=== PATIENT | male | born 1950 | race Caucasian/White ===

== ENCOUNTER → 2018-04-22 10:22 | Outpatient (CLI) | payer MEDICARE, OTHER, SELFPAY | PROVIDERS: PCP Family Medicine; Visit Provider Urology | DX: R97.20 Elevated prostate specific antigen [PSA] (principal) | CPT/HCPCS: 36415; 84153 ==

== ENCOUNTER 2018-05-22 14:28 | Emergency (ER) | payer MEDICARE, OTHER, SELFPAY ==
[2018-05-22 14:36] VITALS: BP 132/71; PULSE 84; RESP 16; TEMP 36.8; O2SAT 97; BMI 29.8
[2018-05-22 15:33] LABS: RBC Urine None Seen (0-5/HPF)
[2018-05-22 15:51] LABS: Bacteria Urine Few (2-10); Culture Indicated Urine Specimen Cultured; Squamous Epithelial Cell Urine None Seen; WBC Urine 10-30/HPF (0-5/HPF)
--- NOTE | 2018-05-22 18:23 | ED.MALEGU ---
HPI - Male Genitourinary <ALEXANDRA Tai - Last Filed: 05/22/18 22:17> General Chief complaint: Urogenital-Male Stated complaint: Prostate Issues, Fever Time Seen by Provider: 05/22/18 18:23 Source: patient Mode of arrival: ambulatory Limitations: no limitations History of Present Illness HPI Narrative: 68-year-old male history of BPH and is a nonsmoker.here for complaint of having symptoms of urinary tract infection. He states that he has had increased urinary frequency. He states that he has had difficulty in maintaining stream although he states he is able to empty his bladder. He states he has felt hot he has mild tenderness over the suprapubic area. He denies any rectal pain. No abdominal pain. Positive p.o. intake. No flank pain. No other concerns or complaints Related Data Home Medications Medication Instructions Recorded Confirmed flecainide 100 mg PO BID #0 10/16/17 05/22/18 hydrochlorothiazide 25 mg PO QDAY #0 10/16/17 05/22/18 lactase [Lactase Enzyme] 4,500 unit PO DAILY #0 10/16/17 05/22/18 losartan 50 mg PO DAILY #0 10/16/17 05/22/18 magnesium oxide 400 mg PO DAILY #0 10/16/17 05/22/18 Calcium 1 tab PO BID 05/22/18 05/22/18 Vitamin C 1 tab PO DAILY 05/22/18 05/22/18 Vitamin D3 1 cap PO DAILY 05/22/18 05/22/18 apixaban [Eliquis] 5 mg PO BID 05/22/18 05/22/18 diltiazem HCl [Cartia XT] 1 cap PO DAILY 05/22/18 05/22/18 Previous Rx's Medication Instructions Recorded cephalexin 500 mg PO QID #28 cap 05/22/18 Allergies Allergy/AdvReac Type Severity Reaction Status Date / Time caffeine [CAFFEINE] AdvReac Unknown HEADACHE, Verified 05/22/18 14:41 VOMITING glutamine [GLUTAMINE] AdvReac Unknown HEADACHE, Verified 05/22/18 14:41 VOMITING Nitrate Analogues AdvReac Unknown HEADACHE, Verified 05/22/18 14:41 [NITRATE ANALOGUES] VOMITING Sulfa (Sulfonamide AdvReac Unknown VOMITING, Verified 05/22/18 14:41 Antibiotics) RACING [SULFA (SULFONAMIDE HEART ANTIBIOTICS)] cheese AdvReac Headache Verified 05/22/18 14:42 monosodium glutamate AdvReac Vomiting Verified 05/22/18 14:42 Review of Systems <ALEXANDRA Tai - Last Filed: 05/22/18 22:17> Review of Systems All systems reviewed & are unremarkable except as noted in HPI and below Constitutional Denies chills, Denies fever(s), Denies lethargy and Denies weakness Eyes Denies change in vision, Denies eye discharge, Denies irritation and Denies loss of vision ENT Ears, Nose, Mouth, and Throat: Denies change in voice, Denies neck pain and Denies sore throat Cardiovascular Denies chest pain, Denies irregular heart rhythm, Denies lightheadedness, Denies palpitations, Denies dyspnea, Denies dyspnea on exertion and Denies orthopnea Respiratory Denies cough, Denies dyspnea, Denies dyspnea on exertion and Denies wheezing Gastrointestinal Gastrointestinal: Denies abdominal pain, Denies change in bowel habits, Denies diarrhea, Denies nausea and Denies vomiting Genitourinary Reports difficulty urinating and Reports urinary frequency Comments: suprapubic discomfort Musculoskeletal Denies neck pain Integumentary/Breasts Denies pruritus, Denies erythema, Denies rash and Denies wounds Neurologic Denies confusion, Denies loss of vision and Denies weakness Psychiatric Denies anxiety, Denies confusion, Denies depression, Denies homicidal ideation and Denies suicidal ideation Endocrine Denies palpitations Hematologic/Lymphatic Denies easy bruising Allergic/Immunologic Denies wheezing Exam <ALEXANDRA Tai - Last Filed: 05/22/18 22:17> Initial Vital Signs Initial Vital Signs: Vital Signs Temperature 98.2 F 05/22/18 14:36 Pulse Rate 84 05/22/18 14:36 Respiratory Rate 16 05/22/18 14:36 Blood Pressure 132/71 05/22/18 14:36 Pulse Oximetry 97 05/22/18 14:36 Const General: cooperative and well developed Nutritional Appearance: well nourished Orientation: alert, awake, oriented x3 and not confused HENGA Mouth: oral mucosae normal and moist mucous membranes Eyes Conjunctivae: conjunctivae normal Sclera: sclerae normal Pupils: PERRL EOM: EOM intact bilaterally Resp Effort & Inspection: normal respiratory effort, able to speak in complete sentences, no respiratory distress and no use of accessory muscles Auscultation: clear to auscultation bilaterally, no rales, no rhonchi and no wheezes Cardio Rate: regular rate Rhythm: regular rhythm Heart Sounds: no click, no gallops, no murmurs and no rubs Pulses: normal peripheral pulses GI Inspection: non-distended Palpation: soft, no hepatosplenomegaly, No guarding, No pulsatile mass and No tender Auscultation: normal bowel sounds Rectal Exam: visual inspection normal, normal sphincter tone and prostate abnormal ( Prostate is enlarged however is not boggy. nontender) General: No CVA tenderness Skin General: no rashes or lesions noted, No jaundice and No petechiae Neuro General: alert, oriented x3, gait normal and no focal motor deficits Speech: speech normal <Ede Cruz DO - Last Filed: 05/22/18 23:21> Initial Vital Signs Initial Vital Signs: Vital Signs Temperature 98.2 F 05/22/18 14:36 Pulse Rate 84 05/22/18 14:36 Respiratory Rate 16 05/22/18 14:36 Blood Pressure 132/71 05/22/18 14:36 Pulse Oximetry 97 05/22/18 14:36 Course <ALEXANDRA Tai - Last Filed: 05/22/18 22:17> Vital Signs - 8 hr 05/22/18 19:20 Temperature 98.8 F Pulse Rate 77 Respiratory Rate 16 Blood Pressure [Right Arm] 145/66 H Pulse Oximetry 96 <Ede Cruz DO - Last Filed: 05/22/18 23:21> Vital Signs - 8 hr 05/22/18 19:20 Temperature 98.8 F Pulse Rate 77 Respiratory Rate 16 Blood Pressure [Right Arm] 145/66 H Pulse Oximetry 96 MDM - Male Genitourinary <ALEXANDRA Tai - Last Filed: 05/22/18 22:17> Differential Diagnosis Likely prostatitis and acute retention of urine Lab Data Lab Results 05/22/18 Range/Units Unknown Urine RBC None seen (0-5/HPF) Urine WBC 10-30/hpf H (0-5/HPF) Ur Squamous Epith Cells None seen Urine Bacteria Few (2-10) H (None) Ur Culture Indicated? Specimen cultured Micro UA Comment Not Reportable Urine Dip Bedside Urine Glucose Negative Bedside Urine Bilirubin - Negative Bedside Urine Ketone +/- 5 Urine Specific [place] 1.015 Bedside Urine Occult Blood ++ Bedside Urine pH 6.5 Bedside Urine Protein +/- 15 Bedside Urine Urobilinogen +/- 1mg Bedside Urine Nitrite - Negative Bedside Urine Leukocytes ++ 125 Esterase MDM Narrative Medical decision making narrative: Urinalysis was obtained and indicates urinary tract infection. rectal exam indicates large prostate however is non boggy and nontender. Postvoid residual was 30 mL. will treat with Keflex for urinary tract infection. He is instructed to follow up with primary care provider / urologist next week. For any worsening symptoms return to the emergency room. Use [id number] Tylenol as needed for any discomfort <Ede Cruz DO - Last Filed: 05/22/18 23:21> Lab Data Lab Results 05/22/18 Range/Units Unknown Urine RBC None seen (0-5/HPF) Urine WBC 10-30/hpf H (0-5/HPF) Ur Squamous Epith Cells None seen Urine Bacteria Few (2-10) H (None) Ur Culture Indicated? Specimen cultured Micro UA Comment Not Reportable Urine Dip Bedside Urine Glucose Negative Bedside Urine Bilirubin - Negative Bedside Urine Ketone +/- 5 Urine Specific [place] 1.015 Bedside Urine Occult Blood ++ Bedside Urine pH 6.5 Bedside Urine Protein +/- 15 Bedside Urine Urobilinogen +/- 1mg Bedside Urine Nitrite - Negative Bedside Urine Leukocytes ++ 125 Esterase Discharge Plan Departure Patient Disposition: Home Clinical Impression: Urinary tract infection Discharge Date/Time: 05/22/18 19:31 Interventions: ED Discharge Assessment Last Done: 05/22/18 19:30 Instructions: Urinary Tract Infection Activity Restrictions/Additional Instructions: urinalysis indicates urinary tract infection. You have been placed on antibiotic called cephalexin use as directed. Plenty of fluids. Follow up with primary care provider in the next few days for re-evaluation. Use [id number] Tylenol as needed for any discomfort. For any worsening symptoms return to the emergency room. Follow up with Urology. Prescriptions: New cephalexin 500 mg capsule 500 mg PO QID Qty: 28 RF: 0 No Action flecainide 50 MG tablet 100 mg PO BID Qty: 0 RF: 0 losartan 50 MG tablet 50 mg PO DAILY Qty: 0 RF: 0 hydrochlorothiazide 25 MG tablet 25 mg PO QDAY Qty: 0 RF: 0 lactase [Lactase Enzyme] 4,500 UNIT tablet 4,500 unit PO DAILY Qty: 0 RF: 0 magnesium oxide 400 MG tablet 400 mg PO DAILY Qty: 0 RF: 0 diltiazem HCl [Cartia XT] 240 mg capsule,extended release 24hr 1 cap PO DAILY RF: 0 apixaban [Eliquis] 5 mg tablet 5 mg PO BID RF: 0 Calcium 1 tab PO BID RF: 0 Vitamin C 1 tab PO DAILY RF: 0 Vitamin D3 1 cap PO DAILY RF: 0 Referrals: Albino Feng MD [Primary Care Provider] - <Ede Cruz DO - Last Filed: 05/22/18 23:21> Cosign ED Attending Cosignature Attestation: I was immediately available in the department for consultation. Documentation has been reviewed. I agree with assessment and plan.
[2018-05-22 19:20] VITALS: BP 145/66; PULSE 77; RESP 16; TEMP 37.1; O2SAT 96
== END 2018-05-22 19:31 | disposition home or self-care (01) ==
PROVIDERS: Emergency Provider Nurse Practitioner Family; PCP Family Medicine
DX: N39.0 Urinary tract infection, site not specified (principal)
CPT/HCPCS: 51798; 81003; 81015; 87077; 87086; 87186; 99283

== ENCOUNTER → 2018-06-19 15:06 | Outpatient (CLI) | payer MEDICARE, OTHER, SELFPAY ==
[2018-06-19 16:04] LABS: Appearance Urine UA CLEAR; Bilirubin Urine UA NEGATIVE (NEGATIVE); Color Urine UA YELLOW; Glucose Urine UA NEGATIVE (Normal); Ketones Urine UA NEGATIVE (NEGATIVE); Leukocyte Esterase Urine UA NEGATIVE (NEGATIVE); Nitrite Urine UA NEGATIVE (Negative); Occult Blood Urine UA TRACE-INTACT (Negative); Protein Urine UA NEGATIVE (Negative); Urobilinogen Urine UA 0.2 E.U./dL (0.2)
[2018-06-19 16:37] LABS: Bacteria Urine Few (2-10); Culture Indicated Urine Cult Not Indicated; Mucus Urine 1+ (Negative); RBC Urine 1-5/HPF (0-5/HPF); Squamous Epithelial Cell Urine 0-1 /HPF; WBC Urine 1-5/HPF (0-5/HPF)
== END ==
PROVIDERS: PCP Family Medicine; Visit Provider Family Medicine
DX: N39.0 Urinary tract infection, site not specified (principal)
CPT/HCPCS: 36415; 81001

== ENCOUNTER → 2018-07-28 11:51 | Outpatient (CLI) | payer MEDICARE, OTHER, SELFPAY ==
[2018-07-28 13:31] LABS: BUN Creatinine Ratio 21.1 (6-22); Blood Urea Nitrogen 19 mg/dL (9-20); Calcium 9.5 mg/dL (8.4-10.2); Carbon Dioxide 30 mmol/L (22-32); Chloride 101 mmol/L (98-107); Estimated Glomerular Filt Rate > 60.0 mL/min (>60); Glucose 88 mg/dL (80-110); HEMOLYSIS < 15 (0-50); Potassium 5.1 mmol/L (3.4-5.1); Sodium 142 mmol/L (137-145); Uric Acid 7.5 mg/dL (3.5-8.5)
== END ==
PROVIDERS: PCP Family Medicine; Visit Provider Family Medicine
DX: M10.9 Gout, unspecified (principal); R97.20 Elevated prostate specific antigen [PSA]
CPT/HCPCS: 36415; 80048; 84153; 84550

== ENCOUNTER → 2018-08-04 08:55 | Outpatient (CLI) | payer MEDICARE, OTHER, SELFPAY ==
[2018-08-04 09:54] LABS: Hematocrit 39.2 % (41-53); Hemoglobin 13.4 g/dL (13.5-17.5); Mean Corpuscular HGB Conc 34.2 % (30-36); Mean Corpuscular Hemoglobin 30.2 PG (26-34); Mean Corpuscular Volume 88.4 fL (80-100); Platelet Count 250 X10^3/uL (150-400); Red Blood Cell Count 4.43 X10^6/uL (4.5-5.9); Red Cell Distribution Width 13.9 % (11.6-14.8)
[2018-08-04 10:04] LABS: Blood Urea Nitrogen 22 mg/dL (9-20); Calcium 9.5 mg/dL (8.4-10.2); Carbon Dioxide 26 mmol/L (22-32); Chloride 100 mmol/L (98-107); Estimated Glomerular Filt Rate > 60.0 mL/min (>60); Glucose 88 mg/dL (80-110); HEMOLYSIS < 15 (0-50); Magnesium 2.1 mg/dL (1.6-2.3); Sodium 140 mmol/L (137-145)
[2018-08-04 10:34] LABS: Thyroid Stimulating Hormone 2.71 uIU/mL (0.47-4.68)
== END ==
PROVIDERS: Family Provider Family Medicine; PCP Family Medicine; Visit Provider Nurse Practitioner Family
DX: I48.0 Paroxysmal atrial fibrillation (principal)
CPT/HCPCS: 36415; 80048; 83735; 84443; 85027

== ENCOUNTER → 2019-03-24 09:33 | Outpatient (CLI) | payer MEDICARE, OTHER, SELFPAY ==
[2019-03-24 10:30] LABS: Alanine Aminotransferase 15 IU/L (21-72); Albumin 4.2 g/dL (3.5-5.0); Albumin Globulin Ratio 1.4 (1.0-2.8); Alkaline Phosphatase 59 U/L (38-126); Aspartate Aminotransferase 19 IU/L (17-59); Bilirubin Total 0.5 mg/dL (0.2-1.3); Blood Urea Nitrogen 31 mg/dL (9-20); Calcium 9.4 mg/dL (8.4-10.2); Carbon Dioxide 28 mmol/L (22-32); Chloride 99 mmol/L (98-107); Cholesterol 175 mg/dL (140-199); Estimated Glomerular Filt Rate > 60.0 mL/min (>60); Glucose 89 mg/dL (80-110); HDL Cholesterol 47 mg/dL (40-60); HEMOLYSIS < 15 (0-50); LDL Cholesterol Calculated 92 mg/dL (<100); Potassium 4.3 mmol/L (3.4-5.1); Sodium 136 mmol/L (137-145); Total Protein 7.2 g/dL (6.3-8.2); Triglycerides 178 mg/dL (35-150)
[2019-03-24 10:37] LABS: Add Manual Diff / Slide Review NO; Basophils Absolute Auto 0 /uL (0-100); Basophils Percent Auto 0.4 % (0-2); Eosinophils Absolute Auto 100 /uL (0-450); Eosinophils Percent Auto 1.1 % (2-4); Hematocrit 37.2 % (41-53); Hemoglobin 12.5 g/dL (13.5-17.5); Lymphocytes Absolute Auto 1500 /uL (1100-4500); Lymphocytes Percent Auto 13.8 % (25-40); Mean Corpuscular HGB Conc 33.7 % (30-36); Mean Corpuscular Volume 91.8 fL (80-100); Monocytes Absolute Auto 800 /uL (0-900); Monocytes Percent Auto 6.8 % (3-14); Neutrophils Absolute Auto 8700 /uL (1500-7000); Neutrophils Percent Auto 77.9 % (50-75); Platelet Count 259 X10^3/uL (150-400); Red Blood Cell Count 4.05 X10^6/uL (4.5-5.9); Red Cell Distribution Width 12.7 % (11.6-14.8); White Blood Cell Count 11.1 X10^3/uL (4.5-11.0)
[2019-03-24 10:45] LABS: HEMOLYSIS < 15 (0-50); Iron 177 ug/dL (49-181)
[2019-03-24 10:57] LABS: Percent Iron Saturation 73 % (20-50); Total Iron Binding Capacity 241 ug/dL (261-462); Transferrin 204 mg/dL (206-381)
[2019-03-24 11:01] LABS: Prostate Specific Antigen 0.162 ng/mL (0.10-4.00)
[2019-03-24 11:18] LABS: TSH w/ Reflex to FT4 5.27 uIU/mL (0.47-4.68)
[2019-03-24 11:48] LABS: Free T4, Direct Thyroxine 0.75 ng/dL (0.78-2.19)
== END ==
PROVIDERS: PCP Family Medicine; Visit Provider Family Medicine
DX: D64.9 Anemia, unspecified (principal); C61 Malignant neoplasm of prostate; R97.20 Elevated prostate specific antigen [PSA]; E78.5 Hyperlipidemia, unspecified; I48.0 Paroxysmal atrial fibrillation; E03.9 Hypothyroidism, unspecified
CPT/HCPCS: 36415; 80053; 80061; 82728; 83540; 83550; 84153; 84439; 84443; 85025

== ENCOUNTER → 2019-05-21 14:16 | Outpatient (CLI) | payer MEDICARE, OTHER, SELFPAY ==
[2019-05-21 14:53] LABS: Occult Blood 1 Negative (Negative); Occult Blood 2 Negative (Negative); Occult Blood 3 Negative (Negative)
== END ==
PROVIDERS: PCP Family Medicine; Visit Provider Family Medicine
DX: D64.9 Anemia, unspecified (principal)
CPT/HCPCS: 82270

== ENCOUNTER → 2019-07-26 10:18 | Outpatient (CLI) | payer MEDICARE, OTHER, SELFPAY ==
[2019-07-26 11:43] LABS: Free T4, Direct Thyroxine 0.68 ng/dL (0.78-2.19)
[2019-07-26 11:56] LABS: Thyroid Stimulating Hormone 6.11 uIU/mL (0.47-4.68)
== END ==
PROVIDERS: PCP Family Medicine; Visit Provider Family Medicine
DX: E03.9 Hypothyroidism, unspecified (principal)
CPT/HCPCS: 36415; 84439; 84443

== ENCOUNTER → 2019-08-03 10:03 | Outpatient (CLI) | payer MEDICARE, OTHER, SELFPAY ==
--- NOTE | 2019-08-03 10:07 | DI.CT.S_ITS ---
PROCEDURE: CT KIDNEY URETER BLADDER (KUB) INDICATIONS: Personal history of urinary calculi TECHNIQUE: Noncontrast 5 mm thick sections acquired from the diaphragms to the symphysis. 5 mm thick coronal and sagittal reformats were then performed. For radiation dose reduction, the following was used: automated exposure control, adjustment of mA and/or kV according to patient size. COMPARISON: [facility], CT, IVP (ABD & PEL WWO CONTRAST), 07/03/2015, 7:43. [facility], CT, PE STUDY (CTA CHEST), 11/03/2017, 23:29. FINDINGS: Image quality: Excellent. Lung bases: Lung bases are clear. Heart size is normal. Urinary system: Both kidneys are normal in size. 2 mm diameter nonobstructing calculus within the inferior pole right kidney is present, as before. Punctate nonobstructing calculus within the left interpolar kidney posteriorly is present, new since the prior examination. No left kidney stones. Bilateral parapelvic renal cysts are present. No hydronephrosis or perinephric fat stranding. Both ureters appear non-dilated throughout their expected courses. Bladder wall thickness is normal; no calcified bladder stones. Other solid organs: Liver is normal in size. Gallbladder is within normal limits. Pancreas is normal in contours. Spleen is normal in size. No adrenal nodules. Peritoneum and bowel: Unenhanced bowel loops demonstrate normal wall thickness and caliber. No free fluid or air. Nodes and vessels: No retroperitoneal or mesenteric adenopathy by size criteria. Aorta and inferior vena cava are normal in caliber. Abdominal wall: No ventral hernias. Pelvis: No free pelvic fluid. No inguinal hernias or adenopathy. Bones: No suspicious bony lesions. Left L5-S1 pars interarticularis defect is present. No vertebral body compression fractures. IMPRESSION: 1. Small nonobstructing bilateral renal calculi. 2. Bilateral parapelvic renal cysts. Dictated by: Scarlett Blum M.D. on 08/03/2019 at 17:36 Approved by: Scarlett Blum M.D. on 08/03/2019 at 17:40
== END ==
PROVIDERS: PCP Family Medicine; Visit Provider Urology
DX: N20.0 Calculus of kidney (principal); N28.1 Cyst of kidney, acquired; Z87.442 Personal history of urinary calculi
CPT/HCPCS: 74176

== ENCOUNTER → 2019-09-21 08:46 | Outpatient (CLI) | payer MEDICARE, OTHER, SELFPAY ==
--- NOTE | 2019-09-21 | DI.US.S_ITS ---
PROCEDURE: US CAROTID DOPPLER BI INDICATIONS: DISORDER OF ARTERIES AND ARTERIOLES, UNSPECIFIED TECHNIQUE: Color and pulse Doppler interrogation was performed of both carotid systems, with image documentation and velocity measurements. COMPARISON: None. FINDINGS: Stenosis calculations are based on SRU (Society of Radiologists in Ultrasound) criteria. Right side: Brachial blood pressure: 106/66 mm Hg. Common carotid artery peak systolic velocity: 107 cm/sec. Internal carotid artery peak systolic velocity: 112 cm/sec. Internal carotid artery end diastolic velocity: 28 cm/sec. External carotid artery peak systolic velocity: 130 cm/sec. ICA/CCA peak systolic ratio: 1.1. Ennis scale imaging description: Moderate scattered plaque. Percent internal carotid artery stenosis: Less than 50%. Vertebral artery: Flow direction is antegrade. Left side: Brachial blood pressure: 114/70 mm Hg. Common carotid artery peak systolic velocity: 124 cm/sec. Internal carotid artery peak systolic velocity: 109 cm/sec. Internal carotid artery end diastolic velocity: 33 cm/sec. External carotid artery peak systolic velocity: 132 cm/sec. ICA/CCA peak systolic ratio: 0.9. Ennis scale imaging description: Moderate scattered plaque Percent internal carotid artery stenosis: Less than 50%. Vertebral artery: Flow direction is antegrade. IMPRESSION: Less than 50% bilateral internal carotid artery stenosis. Dictated by: Eduar Luo [facility] Interpreted: Bay Sullivan MD on 09/21/2019 at 11:30 Approved by: Bay Sullivan M.D. on 09/21/2019 at 13:17
== END ==
PROVIDERS: PCP Family Medicine; Visit Provider Family Medicine
DX: I65.23 Occlusion and stenosis of bilateral carotid arteries (principal); I77.9 Disorder of arteries and arterioles, unspecified; R93.89 Abnormal findings on diagnostic imaging of other specified body structures
CPT/HCPCS: 93880

== ENCOUNTER → 2019-09-29 08:22 | Outpatient (CLI) | payer MEDICARE, OTHER, SELFPAY ==
--- NOTE | 2019-09-29 | DI.RAD.S_ITS ---
PROCEDURE: XR CHEST 2V INDICATIONS: Dyspnea on exertion TECHNIQUE: 2 views of the chest were acquired. COMPARISON: [facility], CHEST 1 VIEW, 11/03/2017, 22:43. [facility], CHEST 1 VIEW, 06/18/2010, 13:50. FINDINGS: Surgical changes and devices: None. Lungs and pleura: Lungs are clear. No pleural effusions or pneumothorax. Mediastinum: Mediastinal contours are normal. Heart size is normal. Bones and chest wall: No suspicious bony abnormalities. Age-appropriate bony degenerative changes are seen. Soft tissues appear unremarkable. IMPRESSION: Plain film study within normal limits. Dictated by: Hernandez Arrieta M.D. on 09/29/2019 at 10:22 Approved by: Hernandez Arrieta M.D. on 09/29/2019 at 10:23
[2019-09-29 08:48] LABS: Bacteria Urine None Seen; RBC Urine None Seen (0-5/HPF); WBC Urine None Seen (0-5/HPF)
[2019-09-29 09:40] LABS: Appearance Urine UA CLEAR; Bilirubin Urine UA NEGATIVE (NEGATIVE); Color Urine UA YELLOW; Glucose Urine UA NEGATIVE (Negative); Ketones Urine UA NEGATIVE (NEGATIVE); Leukocyte Esterase Urine UA NEGATIVE (NEGATIVE); Nitrite Urine UA NEGATIVE (Negative); Occult Blood Urine UA NEGATIVE (Negative); Protein Urine UA NEGATIVE (Negative); Specific Gravity Urine UA 1.015 (1.000-1.035); Urobilinogen Urine UA 0.2 E.U./dL (0.2)
[2019-09-29 09:46] LABS: Culture Indicated Urine Cult Not Indicated; Urine Comments Microscopic Normal
[2019-09-29 09:52] LABS: HEMOLYSIS < 15 (0-50); Iron 85 ug/dL (49-181)
[2019-09-29 09:54] LABS: Alanine Aminotransferase 17 IU/L (<50); Albumin 4.3 g/dL (3.5-5.0); Albumin Globulin Ratio 1.4 (1.0-2.8); Alkaline Phosphatase 72 U/L (38-126); Aspartate Aminotransferase 29 IU/L (17-59); Bilirubin Total 0.5 mg/dL (0.2-1.3); Blood Urea Nitrogen 22 mg/dL (9-20); Calcium 9.5 mg/dL (8.4-10.2); Carbon Dioxide 29 mmol/L (22-32); Chloride 101 mmol/L (98-107); Cholesterol 196 mg/dL (140-199); Estimated Glomerular Filt Rate > 60.0 mL/min (>60); Glucose 86 mg/dL (80-110); HDL Cholesterol 37 mg/dL (40-60); HEMOLYSIS < 15 (0-50); LDL Cholesterol Calculated 137 mg/dL (<100); Potassium 4.1 mmol/L (3.4-5.1); Sodium 139 mmol/L (137-145); Total Protein 7.3 g/dL (6.3-8.2); Triglycerides 108 mg/dL (35-150)
[2019-09-29 09:57] LABS: B Type Natriuretic Peptide < 100 (<100)
[2019-09-29 10:06] LABS: Percent Iron Saturation 36 % (20-50); Total Iron Binding Capacity 237 ug/dL (261-462); Transferrin 195 mg/dL (206-381)
[2019-09-29 10:13] LABS: Free T4, Direct Thyroxine 0.79 ng/dL (0.78-2.19)
[2019-09-29 10:26] LABS: Prostate Specific Antigen < 0.064 ng/mL (0.10-4.00)
[2019-09-29 10:27] LABS: Thyroid Stimulating Hormone 6.62 uIU/mL (0.47-4.68)
[2019-09-29 13:05] LABS: Add Manual Diff / Slide Review NO; Basophils Absolute Auto 0 /uL (0-100); Basophils Percent Auto 0.4 % (0-2); Eosinophils Absolute Auto 200 /uL (0-450); Eosinophils Percent Auto 1.8 % (2-4); Hematocrit 36.9 % (41-53); Hemoglobin 12.9 g/dL (13.5-17.5); Lymphocytes Absolute Auto 1500 /uL (1100-4500); Lymphocytes Percent Auto 16.6 % (25-40); Mean Corpuscular HGB Conc 35.1 % (30-36); Mean Corpuscular Hemoglobin 31.6 PG (26-34); Mean Corpuscular Volume 90.2 fL (80-100); Monocytes Absolute Auto 700 /uL (0-900); Monocytes Percent Auto 7.8 % (3-14); Neutrophils Absolute Auto 6600 /uL (1500-7000); Neutrophils Percent Auto 73.4 % (50-75); Platelet Count 256 X10^3/uL (150-400); Red Blood Cell Count 4.09 X10^6/uL (4.5-5.9); Red Cell Distribution Width 12.9 % (11.6-14.8)
== END ==
PROVIDERS: PCP Family Medicine; Referring Provider Family Medicine; Visit Provider Family Medicine
DX: D64.9 Anemia, unspecified (principal); R06.09 Other forms of dyspnea; C61 Malignant neoplasm of prostate; R97.20 Elevated prostate specific antigen [PSA]; E78.5 Hyperlipidemia, unspecified; I48.0 Paroxysmal atrial fibrillation; E03.9 Hypothyroidism, unspecified
CPT/HCPCS: 36415; 71046; 80053; 80061; 81001; 82728; 83540; 83550; 83880; 84153; 84439; 84443; 85025

== ENCOUNTER → 2020-01-04 09:05 | Outpatient (CLI) | payer MEDICARE, OTHER, SELFPAY ==
[2020-01-04 10:38] LABS: Add Manual Diff / Slide Review NO; Basophils Absolute Auto 0 /uL (0-100); Basophils Percent Auto 0.4 % (0-2); Eosinophils Absolute Auto 200 /uL (0-450); Eosinophils Percent Auto 1.8 % (2-4); Hematocrit 37.5 % (41-53); Hemoglobin 12.3 g/dL (13.5-17.5); Lymphocytes Absolute Auto 1100 /uL (1100-4500); Lymphocytes Percent Auto 8.8 % (25-40); Mean Corpuscular HGB Conc 32.8 % (30-36); Mean Corpuscular Hemoglobin 30.4 PG (26-34); Mean Corpuscular Volume 92.5 fL (80-100); Monocytes Absolute Auto 800 /uL (0-900); Monocytes Percent Auto 6.7 % (3-14); Neutrophils Absolute Auto 10000 /uL (1500-7000); Neutrophils Percent Auto 82.3 % (50-75); Platelet Count 267 X10^3/uL (150-400); Red Blood Cell Count 4.05 X10^6/uL (4.5-5.9); Red Cell Distribution Width 14.6 % (11.6-14.8); White Blood Cell Count 12.1 X10^3/uL (4.5-11.0)
[2020-01-04 11:26] LABS: Estradiol, Total 427.1 pg/mL
[2020-01-10 13:19] LABS: Percent Free Testosterone 1.53 % (1.50-4.20); Testosterone Free 0.06 ng/dL (5.00-21.00); Testosterone Total 3.8 ng/dL (264.0-916.0)
== END ==
PROVIDERS: PCP Family Medicine; Referring Provider Nurse Practitioner Family; Visit Provider Nurse Practitioner Family
DX: F64.9 Gender identity disorder, unspecified (principal)
CPT/HCPCS: 36415; 82670; 84144; 84402; 84403; 85025

== ENCOUNTER 2020-02-11 05:50 | Inpatient (IN) | payer MEDICARE, OTHER, SELFPAY ==
[2020-02-11] VITALS (27 sets, daily range): BP systolic 99–176; BP diastolic 49–77; PULSE 59–78; RESP 11–23; TEMP 35.7–37.1; O2SAT 92–100; BMI 27.3
--- NOTE | 2020-02-11 | PATH_ITS ---
[facility] Accession Number: [id number] . 01 Material submitted: . gallbladder - GALLBLADDER AND CONTENTS . 01 Clinical history: . STOMACH PAIN SINCE FRIDAY . 02 Diagnosis: Gallbladder and Contents, Cholecystectomy: Acute and chronic and partially gangrenous cholecystitis. Indeterminate for rupture due to specimen disruption at gross examination. Stones are present in the gallbladder neck at gross examination. MRV 02/14/2020 1441 Local . 02 Electronically signed: . Angélica Browne MD, Pathologist NPI- [id number] . 01 Gross description: . Specimen A is received in formalin, labeled with patient identification and gallbladder and contents. It consists of a disrupted gallbladder measuring 8.5 cm in length and up to 4.6 cm in diameter. The cystic duct margin is stapled shut and the cystic duct is 0.4 cm in diameter. The serosa is pink to yellow-barakat, smooth, and glistening. The hepatic surface is brown to yellow-barakat, shaggy, ragged, and cauterized. Opening the specimen reveals brown to yellow-barakat and mildly velvety mucosa with multiple small, round, and orange in color calculi, admixed with brown to dark red hemorrhagic content, measuring 5.5 x 4.3 x 0.5 cm in aggregate. Multiple calculi are present at the neck. The wall thickness is up to 0.7 cm. No cystic lymph nodes are present. Single Wire Saw Operator sections are submitted in one cassette. . Summary of sections: A1: Cystic duct margin and traffic representative sections of fundus, body, and neck, four pieces. ([id number]) /MRV 02/13/2020 2330 Local . 02 Pathologist provided ICD-10: K80.60 . 02 CPT . [id number] Performed at: 01 [facility] [address] [place] [address], [place], [place] [id number] MD Juan Mahonye MD Phone: [phone] Performed at: 02 [facility] [address] [place], [place] [id number] MD Lindsay Rudolph MD Phone: [phone]
--- NOTE | 2020-02-11 05:51 | ED.ABDPAIN ---
HPI - Abdominal Pain <Ede LaarDO duglas - Last Filed: 02/12/20 03:57> General Chief Complaint: Abdominal Pain Stated Complaint: stomach pain since friday Time Seen by Provider: 02/11/20 05:51 Source: patient and family Mode of arrival: Ambulatory Limitations: no limitations History of Present Illness HPI narrative: 69-year-old male nonsmoker with history of coronary artery disease and a relatively recent 3 way bypass in [place] presents with his and a chief complaint of gradually worsening severe mid to epigastric abdominal pain. He states the pain is worse with motion and improves with rest. It is made worse with deep breaths and as the result he feels short of breath but states the problem does not feel like it is in his lungs. He has had nausea and a few episodes of vomiting but this does not seem to affect his pain. He denies any radiation of pain and had a bowel movement earlier this morning which was a bit harder than normal. He denies dysuria, frequency or urgency. He has had no runny nose, sore throat or cough. He denies any dysuria, frequency or urgency MD complaint: abdominal pain Onset (ago): day(s) Pain Consistency: constant Location: epigastric Severity: severe Severity scale (1-10): 8 Quality: stabbing and sharp Radiation: none Relieving factors: rest Exacerbating factors: movement Associated symptoms: nausea and vomiting Related Data Home Medications Medication Instructions Recorded Confirmed losartan 50 mg PO DAILY #0 10/16/17 02/11/20 magnesium oxide 400 mg PO DAILY #0 10/16/17 02/11/20 Calcium 1 tab PO BID 05/22/18 02/11/20 Vitamin C 1 tab PO DAILY 05/22/18 02/11/20 Vitamin D3 1 cap PO DAILY 05/22/18 02/11/20 bicalutamide 50 mg PO Q OTHER DAY 02/11/20 02/11/20 hydrocodone-acetaminophen 1 tab PO Q4H PRN 02/11/20 02/11/20 metoprolol tartrate 25 mg PO BID 02/11/20 02/11/20 rosuvastatin 40 mg PO DAILY 02/11/20 02/11/20 Allergies Allergy/AdvReac Type Severity Reaction Status Date / Time caffeine [CAFFEINE] AdvReac Unknown HEADACHE, Verified 02/11/20 10:26 VOMITING glutamine [GLUTAMINE] AdvReac Unknown HEADACHE, Verified 02/11/20 10:26 VOMITING Nitrate Analogues AdvReac Unknown HEADACHE, Verified 02/11/20 10:26 [NITRATE ANALOGUES] VOMITING Sulfa (Sulfonamide AdvReac Unknown VOMITING, Verified 02/11/20 10:26 Antibiotics) RACING [SULFA (SULFONAMIDE HEART ANTIBIOTICS)] cheese AdvReac Headache Verified 02/11/20 10:26 monosodium glutamate AdvReac Vomiting Verified 02/11/20 10:26 Review of Systems <Ede Cruz DO - Last Filed: 02/12/20 03:57> Constitutional Constitutional: Denies chills, Denies fatigue, Denies fever(s), Denies frequent falls, Denies lethargy and Denies weakness Eyes Eyes: Denies change in vision, Denies eye discharge, Denies irritation and Denies loss of vision ENT Ears, Nose, Mouth, and Throat: Denies change in voice, Denies dizziness, Denies neck pain, Denies sore throat and Denies throat swelling Cardiovascular Cardiovascular: Denies chest pain, Denies irregular heart rhythm, Denies lightheadedness, Denies palpitations, Denies dyspnea, Denies dyspnea on exertion and Denies orthopnea Respiratory Respiratory: Denies cough, Denies dyspnea, Denies dyspnea on exertion and Denies wheezing Gastrointestinal Gastrointestinal: Reports abdominal pain, Denies change in bowel habits, Denies diarrhea, Reports nausea and Reports vomiting Musculoskeletal Musculoskeletal: Denies neck pain and Denies numbness Integumentary/Breasts Skin/Breast: Denies pruritus, Denies erythema, Denies rash and Denies wounds Neurologic Neurologic: Denies behavioral changes, Denies confusion, Denies dizziness, Denies frequent falls, Denies loss of vision, Denies numbness and Denies weakness Psychiatric Psychiatric: Denies anxiety, Denies behavioral changes, Denies confusion, Denies depression, Denies homicidal ideation and Denies suicidal ideation Endocrine Endocrine: Denies fatigue, Denies flushing and Denies palpitations Hematologic/Lymphatic Hematologic/Lymphatic: Denies easy bruising Allergic/Immunologic Allergic/Immunologic: Denies urticaria, Denies throat swelling and Denies wheezing Patient History <DO Drake Leonardo Last Filed: 02/12/20 03:57> Medical History (Updated 02/11/20 @ 10:25 by Uriah Yang MD) Coronary artery disease (Acute) Surgical History (Updated 02/11/20 @ 06:27 by Ede Cruz DO) S/P CABG (coronary artery bypass graft) (Acute) Social History household members: spouse Smoking Status: Never smoker Smoking Status: Never smoker alcohol intake frequency: holidays/special occasions only Substance Use Type: does not use Exam <Ede Cruz DO - Last Filed: 02/12/20 03:57> Narrative Exam Narrative: GENERAL: [69] year old patient appears stated age. Well-nourished, well-developed patient, in moderate distress, obviously uncomfortable HEAD: Atraumatic. Normocephalic. EYES: Pupils equal round and reactive. Extraocular motions intact. No scleral icterus. No injection or drainage. ENT: Nose without bleeding, purulent drainage. Throat without erythema, tonsillar hypertrophy or exudate. Airway patent. NECK: Trachea midline. Non tender CARDIOVASCULAR: Regular rate and rhythm without murmurs, gallops, or rubs. Well-appearing sternotomy RESPIRATORY: Clear to auscultation. Breath sounds equal bilaterally. No wheezes, rales, or rhonchi. GASTROINTESTINAL: Abdomen soft, tender in upper abdomen and epigastrium nondistended. EXTREMITIES: No edema or joint tenderness. BACK: Nontender without deformity or crepitance. No flank tenderness. NEURO: AOx3. SKIN: No rash or erythema of visible areas Initial Vital Signs Initial Vital Signs: Vital Signs Temperature 98.8 F 02/11/20 06:00 Pulse Rate 68 02/11/20 06:00 Respiratory Rate 23 02/11/20 06:00 Blood Pressure 152/77 H 02/11/20 06:00 Pulse Oximetry 100 02/11/20 06:00 <Uriah Yang MD - Last Filed: 02/11/20 10:10> Initial Vital Signs Initial Vital Signs: Vital Signs Temperature 98.8 F 02/11/20 06:00 Pulse Rate 68 02/11/20 06:00 Respiratory Rate 23 02/11/20 06:00 Blood Pressure 152/77 H 02/11/20 06:00 Pulse Oximetry 100 02/11/20 06:00 <Ryan Otto MD - Last Filed: 02/11/20 21:36> Initial Vital Signs Initial Vital Signs: Vital Signs Temperature 98.8 F 02/11/20 06:00 Pulse Rate 68 02/11/20 06:00 Respiratory Rate 23 02/11/20 06:00 Blood Pressure 152/77 H 02/11/20 06:00 Pulse Oximetry 100 02/11/20 06:00 Course <Ede Cruz, DO - Last Filed: 02/12/20 03:57> Course Course Narrative: upon receipt of imaging call placed to [facility]. Dr. Yang will take to the OR later today. He is comfortable with patient status as Yarsanism and access to limited blood product replacement if needed. Orders Ordered: Acetaminophen (Tylenol) 650 mg PO Q6HR [facility] Last Admin: 02/11/20 23:38 Dose: 650 mg Documented by: Admin: 02/11/20 16:19 Dose: 650 mg Documented by: WILBUR Bicalutamide (Casodex) 50 mg PO Q48H [facility] Enoxaparin Sodium (Lovenox) 30 mg SUBCUT DAILY [facility] Hydromorphone HCl (Dilaudid) 0.5 mg IV Q4H [facility] Last Admin: 02/12/20 02:21 Dose: 0.5 mg Documented by: Admin: 02/11/20 21:05 Dose: 0.5 mg Documented by: Admin: 02/11/20 16:20 Dose: 0.5 mg Documented by: Admin: 02/11/20 13:56 Dose: Not Given Documented by: MARY Piperacillin/Tazobactam/Dextrose (Zosyn) 3.375 gm in 50 mls @ 100 mls/hr IV Q8H [facility] Last Infusion: 02/11/20 21:35 Dose: 0 mls/hr Documented by: Admin: 02/11/20 21:05 Dose: 100 mls/hr Documented by: Infusion: 02/11/20 14:24 Dose: 0 mls/hr Documented by: Admin: 02/11/20 13:46 Dose: 100 mls/hr Documented by: MARY Losartan Potassium (Cozaar) 50 mg PO DAILY [facility] Magnesium Oxide (Mag Ox) 400 mg PO DAILY [facility] Metoprolol Tartrate (Lopressor) 25 mg PO BID [facility] Last Admin: 02/11/20 21:05 Dose: 25 mg Documented by: WILBUR Naloxone HCl (Narcan) 0.2 mg IV Q2MIN PRN PRN Reason: Opiate Reversal Ondansetron HCl (Zofran) 4 mg IV Q8HR PRN PRN Reason: Nausea And Vomiting Oxycodone HCl (Percolone) 5 mg PO Q6HR PRN PRN Reason: Pain, Moderate (4-6) Last Admin: 02/11/20 15:23 Dose: 5 mg Documented by: ROCHELLE Rosuvastatin Calcium (Crestor) 40 mg PO DAILY [facility] Discontinued Medications Bupivacaine HCl (Sensorcaine 0.25% (Pf)) 30 ml INJ NOW ONE Stop: 02/11/20 11:11 Last Admin: 02/11/20 11:11 Dose: 30 ml Documented by: LUC Fentanyl (Sublimaze) 0 mcg IV Q5M PRN PRN Reason: Pain, Moderate (4-6) Last Admin: 02/11/20 12:47 Dose: 50 mcg Documented by: HERLINDA Hydromorphone HCl (Dilaudid) 0.5 mg IV NOW ONE Stop: 02/11/20 06:11 Last Admin: 02/11/20 06:21 Dose: 0.5 mg Documented by: FABIAN Hydromorphone HCl (Dilaudid) 0.5 mg IV Q1HR PRN PRN Reason: Pain, Severe (7-10) Last Admin: 02/11/20 08:20 Dose: 0.5 mg Documented by: LOLI Hydromorphone HCl (Dilaudid) 0.5 mg IV Q4HR [facility] Last Admin: 02/11/20 14:25 Dose: Not Given Documented by: MARY Sodium Chloride (Normal Saline 0.9%) 1,000 mls @ 150 mls/hr IV CONT [facility] Last Infusion: 02/11/20 09:13 Dose: 0 mls/hr Documented by: Admin: 02/11/20 06:22 Dose: 150 mls/hr Documented by: FABIAN Piperacillin/Tazobactam/Dextrose (Zosyn) 3.375 gm in 50 mls @ 100 mls/hr IV NOW ONE Stop: 02/11/20 08:00 Last Infusion: 02/11/20 08:26 Dose: 0 mls/hr Documented by: Admin: 02/11/20 07:36 Dose: 100 mls/hr Documented by: LOLI Lactated Ringer's (Lactated Ringers) 1,000 mls @ 42 mls/hr IV CONT [facility] Last Infusion: 02/11/20 13:55 Dose: 0 mls/hr Documented by: Admin: 02/11/20 11:50 Dose: 42 mls/hr Documented by: FRANCESCA Ondansetron HCl (Zofran) 4 mg IV NOW ONE Stop: 02/11/20 06:11 Last Admin: 02/11/20 06:21 Dose: 4 mg Documented by: FABIAN Vital Signs Vital signs: Vital Signs - 8 hr 02/11/20 06:00 02/11/20 07:52 02/11/20 08:36 Temperature 98.8 F 98.0 F Pulse Rate 68 66 59 L Respiratory Rate 23 17 11 L Blood Pressure 152/77 H Blood Pressure [Right Arm] 176/74 H 122/60 Pulse Oximetry 100 97 99 <Uriah Yang MD - Last Filed: 02/11/20 10:10> Orders Ordered: Acetaminophen (Tylenol) 650 mg PO Q6HR [facility] Last Admin: 02/11/20 23:38 Dose: 650 mg Documented by: Admin: 02/11/20 16:19 Dose: 650 mg Documented by: WILBUR Bicalutamide (Casodex) 50 mg PO Q48H [facility] Enoxaparin Sodium (Lovenox) 30 mg SUBCUT DAILY [facility] Hydromorphone HCl (Dilaudid) 0.5 mg IV Q4H [facility] Last Admin: 02/12/20 02:21 Dose: 0.5 mg Documented by: Admin: 02/11/20 21:05 Dose: 0.5 mg Documented by: Admin: 02/11/20 16:20 Dose: 0.5 mg Documented by: Admin: 02/11/20 13:56 Dose: Not Given Documented by: MARY Piperacillin/Tazobactam/Dextrose (Zosyn) 3.375 gm in 50 mls @ 100 mls/hr IV Q8H [facility] Last Infusion: 02/11/20 21:35 Dose: 0 mls/hr Documented by: Admin: 02/11/20 21:05 Dose: 100 mls/hr Documented by: Infusion: 02/11/20 14:24 Dose: 0 mls/hr Documented by: Admin: 02/11/20 13:46 Dose: 100 mls/hr Documented by: MARY Losartan Potassium (Cozaar) 50 mg PO DAILY [facility] Magnesium Oxide (Mag Ox) 400 mg PO DAILY [facility] Metoprolol Tartrate (Lopressor) 25 mg PO BID [facility] Last Admin: 02/11/20 21:05 Dose: 25 mg Documented by: WILBUR Naloxone HCl (Narcan) 0.2 mg IV Q2MIN PRN PRN Reason: Opiate Reversal Ondansetron HCl (Zofran) 4 mg IV Q8HR PRN PRN Reason: Nausea And Vomiting Oxycodone HCl (Percolone) 5 mg PO Q6HR PRN PRN Reason: Pain, Moderate (4-6) Last Admin: 02/11/20 15:23 Dose: 5 mg Documented by: ROCHELLE Rosuvastatin Calcium (Crestor) 40 mg PO DAILY [facility] Discontinued Medications Bupivacaine HCl (Sensorcaine 0.25% (Pf)) 30 ml INJ NOW ONE Stop: 02/11/20 11:11 Last Admin: 02/11/20 11:11 Dose: 30 ml Documented by: LUC Fentanyl (Sublimaze) 0 mcg IV Q5M PRN PRN Reason: Pain, Moderate (4-6) Last Admin: 02/11/20 12:47 Dose: 50 mcg Documented by: HERLINDA Hydromorphone HCl (Dilaudid) 0.5 mg IV NOW ONE Stop: 02/11/20 06:11 Last Admin: 02/11/20 06:21 Dose: 0.5 mg Documented by: FABIAN Hydromorphone HCl (Dilaudid) 0.5 mg IV Q1HR PRN PRN Reason: Pain, Severe (7-10) Last Admin: 02/11/20 08:20 Dose: 0.5 mg Documented by: LOLI Hydromorphone HCl (Dilaudid) 0.5 mg IV Q4HR DAVID Last Admin: 02/11/20 14:25 Dose: Not Given Documented by: MARY Sodium Chloride (Normal Saline 0.9%) 1,000 mls @ 150 mls/hr IV CONT [facility] Last Infusion: 02/11/20 09:13 Dose: 0 mls/hr Documented by: Admin: 02/11/20 06:22 Dose: 150 mls/hr Documented by: FABIAN Piperacillin/Tazobactam/Dextrose (Zosyn) 3.375 gm in 50 mls @ 100 mls/hr IV NOW ONE Stop: 02/11/20 08:00 Last Infusion: 02/11/20 08:26 Dose: 0 mls/hr Documented by: Admin: 02/11/20 07:36 Dose: 100 mls/hr Documented by: LOLI Lactated Ringer's (Lactated Ringers) 1,000 mls @ 42 mls/hr IV CONT [facility] Last Infusion: 02/11/20 13:55 Dose: 0 mls/hr Documented by: Admin: 02/11/20 11:50 Dose: 42 mls/hr Documented by: FRANCESCA Ondansetron HCl (Zofran) 4 mg IV NOW ONE Stop: 02/11/20 06:11 Last Admin: 02/11/20 06:21 Dose: 4 mg Documented by: FABIAN Vital Signs Vital signs: Vital Signs - 8 hr 02/11/20 06:00 02/11/20 07:52 02/11/20 08:36 Temperature 98.8 F 98.0 F Pulse Rate 68 66 59 L Respiratory Rate 23 17 11 L Blood Pressure 152/77 H Blood Pressure [Right Arm] 176/74 H 122/60 Pulse Oximetry 100 97 99 <Ryan Otto MD - Last Filed: 02/11/20 21:36> Orders Ordered: Acetaminophen (Tylenol) 650 mg PO Q6HR [facility] Last Admin: 02/11/20 23:38 Dose: 650 mg Documented by: Admin: 02/11/20 16:19 Dose: 650 mg Documented by: WILBUR Bicalutamide (Casodex) 50 mg PO Q48H [facility] Enoxaparin Sodium (Lovenox) 30 mg SUBCUT DAILY [facility] Hydromorphone HCl (Dilaudid) 0.5 mg IV Q4H [facility] Last Admin: 02/12/20 02:21 Dose: 0.5 mg Documented by: Admin: 02/11/20 21:05 Dose: 0.5 mg Documented by: Admin: 02/11/20 16:20 Dose: 0.5 mg Documented by: Admin: 02/11/20 13:56 Dose: Not Given Documented by: MARY Piperacillin/Tazobactam/Dextrose (Zosyn) 3.375 gm in 50 mls @ 100 mls/hr IV Q8H [facility] Last Infusion: 02/11/20 21:35 Dose: 0 mls/hr Documented by: Admin: 02/11/20 21:05 Dose: 100 mls/hr Documented by: Infusion: 02/11/20 14:24 Dose: 0 mls/hr Documented by: Admin: 02/11/20 13:46 Dose: 100 mls/hr Documented by: MARY Losartan Potassium (Cozaar) 50 mg PO DAILY [facility] Magnesium Oxide (Mag Ox) 400 mg PO DAILY [facility] Metoprolol Tartrate (Lopressor) 25 mg PO BID [facility] Last Admin: 02/11/20 21:05 Dose: 25 mg Documented by: WILBUR Naloxone HCl (Narcan) 0.2 mg IV Q2MIN PRN PRN Reason: Opiate Reversal Ondansetron HCl (Zofran) 4 mg IV Q8HR PRN PRN Reason: Nausea And Vomiting Oxycodone HCl (Percolone) 5 mg PO Q6HR PRN PRN Reason: Pain, Moderate (4-6) Last Admin: 02/11/20 15:23 Dose: 5 mg Documented by: ROCHELLE Rosuvastatin Calcium (Crestor) 40 mg PO DAILY [facility] Discontinued Medications Bupivacaine HCl (Sensorcaine 0.25% (Pf)) 30 ml INJ NOW ONE Stop: 02/11/20 11:11 Last Admin: 02/11/20 11:11 Dose: 30 ml Documented by: LUC Fentanyl (Sublimaze) 0 mcg IV Q5M PRN PRN Reason: Pain, Moderate (4-6) Last Admin: 02/11/20 12:47 Dose: 50 mcg Documented by: HERLINDA Hydromorphone HCl (Dilaudid) 0.5 mg IV NOW ONE Stop: 02/11/20 06:11 Last Admin: 02/11/20 06:21 Dose: 0.5 mg Documented by: FABIAN Hydromorphone HCl (Dilaudid) 0.5 mg IV Q1HR PRN PRN Reason: Pain, Severe (7-10) Last Admin: 02/11/20 08:20 Dose: 0.5 mg Documented by: LOLI Hydromorphone HCl (Dilaudid) 0.5 mg IV Q4HR DAVID Last Admin: 02/11/20 14:25 Dose: Not Given Documented by: MARY Sodium Chloride (Normal Saline 0.9%) 1,000 mls @ 150 mls/hr IV CONT DAVID Last Infusion: 02/11/20 09:13 Dose: 0 mls/hr Documented by: Admin: 02/11/20 06:22 Dose: 150 mls/hr Documented by: FABIAN Piperacillin/Tazobactam/Dextrose (Zosyn) 3.375 gm in 50 mls @ 100 mls/hr IV NOW ONE Stop: 02/11/20 08:00 Last Infusion: 02/11/20 08:26 Dose: 0 mls/hr Documented by: Admin: 02/11/20 07:36 Dose: 100 mls/hr Documented by: LOLI Lactated Ringer's (Lactated Ringers) 1,000 mls @ 42 mls/hr IV CONT DAVID Last Infusion: 02/11/20 13:55 Dose: 0 mls/hr Documented by: Admin: 02/11/20 11:50 Dose: 42 mls/hr Documented by: FRANCESCA Ondansetron HCl (Zofran) 4 mg IV NOW ONE Stop: 02/11/20 06:11 Last Admin: 02/11/20 06:21 Dose: 4 mg Documented by: FABIAN Vital Signs Vital signs: Vital Signs - 8 hr 02/11/20 06:00 02/11/20 07:52 02/11/20 08:36 Temperature 98.8 F 98.0 F Pulse Rate 68 66 59 L Respiratory Rate 23 17 11 L Blood Pressure 152/77 H Blood Pressure [Right Arm] 176/74 H 122/60 Pulse Oximetry 100 97 99 MDM - Abdominal Pain <Ede Cruz DO - Last Filed: 02/12/20 03:57> Lab Data Result diagrams: 02/11/20 06:00 02/11/20 06:00 Labs: Lab Results 02/11/20 02/11/20 02/11/20 Range/Units 06:00 06:00 06:00 WBC 24.8 H (4.5-11.0) X10^3/uL RBC 4.08 L (4.5-5.9) X10^6/uL Hgb 12.3 L (13.5-17.5) g/dL Hct 36.4 L (41-53) % MCV 89.1 (80-100) fL MCH 30.1 (26-34) PG MCHC 33.8 (30-36) % RDW 14.6 (11.6-14.8) % Plt Count 261 (150-400) X10^3/uL Neut % (Auto) 90.0 H (50-75) % Lymph % (Auto) 3.7 L (25-40) % [place] % (Auto) 6.0 (3-14) % Eos % (Auto) 0.1 L (2-4) % Baso % (Auto) 0.2 (0-2) % Neut # (Auto) 33614 H (5416-8283) /uL Lymph # (Auto) 900 L (1006-4972) /uL [place] # (Auto) 1500 H (0-900) /uL Eos # (Auto) 0 (0-450) /uL Baso # (Auto) 0 (0-100) /uL Sodium 131 L (137-145) mmol/L Potassium 4.5 (3.4-5.1) mmol/L Chloride 102 (98-107) mmol/L Carbon Dioxide 22 (22-32) mmol/L BUN 19 (9-20) mg/dL Creatinine 0.73 (0.66-1.25) mg/dL Estimated GFR > 60.0 (>60) mL/min BUN/Creatinine Ratio 26.0 H (6-22) Glucose 111 H (80-110) mg/dL Lactate 0.8 (0.7-2.1) mmol/L Calcium 9.1 (8.4-10.2) mg/dL Total Bilirubin 0.4 (0.2-1.3) mg/dL AST 17 (17-59) IU/L ALT 11 (<50) IU/L Alkaline Phosphatase 69 (38-126) U/L Total Protein 7.2 (6.3-8.2) g/dL Albumin 4.0 (3.5-5.0) g/dL Globulin 3.2 (1.7-4.1) g/dL Albumin/Globulin Ratio 1.3 (1.0-2.8) Lipase 23 (23-300) U/L Urine RBC (0-5/HPF) Urine WBC (0-5/HPF) Ur Squamous Epith Cells (0-5/HPF) Urine Bacteria (None) Urine Mucus (Negative) Ur Culture Indicated? COVID-19 PCR (Negative) 02/11/20 02/11/20 Range/Units 07:58 08:56 WBC (4.5-11.0) X10^3/uL RBC (4.5-5.9) X10^6/uL Hgb (13.5-17.5) g/dL Hct (41-53) % MCV (80-100) fL MCH (26-34) PG MCHC (30-36) % RDW (11.6-14.8) % Plt Count (150-400) X10^3/uL Neut % (Auto) (50-75) % Lymph % (Auto) (25-40) % [place] % (Auto) (3-14) % Eos % (Auto) (2-4) % Baso % (Auto) (0-2) % Neut # (Auto) (4110-2220) /uL Lymph # (Auto) (7556-9343) /uL [place] # (Auto) (0-900) /uL Eos # (Auto) (0-450) /uL Baso # (Auto) (0-100) /uL Sodium (137-145) mmol/L Potassium (3.4-5.1) mmol/L Chloride (98-107) mmol/L Carbon Dioxide (22-32) mmol/L BUN (9-20) mg/dL Creatinine (0.66-1.25) mg/dL Estimated GFR (>60) mL/min BUN/Creatinine Ratio (6-22) Glucose (80-110) mg/dL Lactate (0.7-2.1) mmol/L Calcium (8.4-10.2) mg/dL Total Bilirubin (0.2-1.3) mg/dL AST (17-59) IU/L ALT (<50) IU/L Alkaline Phosphatase (38-126) U/L Total Protein (6.3-8.2) g/dL Albumin (3.5-5.0) g/dL Globulin (1.7-4.1) g/dL Albumin/Globulin Ratio (1.0-2.8) Lipase (23-300) U/L Urine RBC 0-1/hpf (0-5/HPF) Urine WBC 0-1/hpf (0-5/HPF) Ur Squamous Epith Cells 1-5 /hpf (0-5/HPF) Urine Bacteria Occasional (0-1) (None) Urine Mucus 1+ H (Negative) Ur Culture Indicated? Cult not indicated COVID-19 PCR Negative (Negative) Point of care testing: Urine Dip Bedside Urine Glucose Negative Bedside Urine Bilirubin - Negative Bedside Urine Ketone +++ 80 Urine Specific [employer] 1.010 Bedside Urine Occult Blood - Negative Bedside Urine pH 6.5 Bedside Urine Protein +/- 15 Bedside Urine Urobilinogen +/- 1mg Bedside Urine Nitrite - Negative Bedside Urine Leukocytes +/- [address] scan - abdomen/pelvis: Radiologist's Impression: [place] [address] CT Scan Report Signed Patient: Neo Aragon JMR#: [id number] : 8Acct:[id number] Age/Sex: 69 / MDate of Service: 02/11/20 Loc: ED Accession Number: [id number] Procedure: CT chest abd pel w con Ordering Provider: Ede Cruz D.O. PROCEDURE: CT CHEST ABD PEL W CON INDICATIONS: severe mid to upper abdominal pain, vomiting, recent CABG TECHNIQUE: After the administration of intravenous contrast, 5 mm thick sections acquired from the lung apices to the symphysis. 5 mm coronal and sagittal reformats were performed, with additional 7 mm MIP reformats through the lungs. For radiation dose reduction, the following was used: automated exposure control, adjustment of mA and/or kV according to patient size. COMPARISON: None. FINDINGS: Image quality: Excellent. CHEST: Lungs and pleura: Scattered subsegmental atelectasis and/or scarring. No focal consolidation. Airway thickening in keeping with nonspecific bronchitis and/or reactive airways disease. No pleural effusions or pneumothorax. Mediastinum: Heart size is normal. No pericardial effusion. No mediastinal or hilar adenopathy by size criteria. Thoracic aorta and central pulmonary arteries are normal in size. Esophagus is normal in caliber. No hiatal hernia. Chest wall: No axillary or supraclavicular adenopathy by size criteria. Thyroid gland negative. ABDOMEN: Solid organs: Subcentimeter hepatic hypodensities are probably small cysts or hemangiomas, although technically too small to characterize accurately. Gallbladder is distended. There is wall thickening. No radiopaque cholelithiasis identified. However there is adjacent pericholecystic inflammatory stranding and changes. Extra hepatic bile duct system is non dilated. Pancreas enhances normally. Spleen is normal in size and enhancement. No adrenal nodules. No hydronephrosis. Nonobstructing 1 mm left nephrolithiasis. Parapelvic cyst on the left. Simple appearing bilateral renal cysts. Normal appendix. Large amount of stool seen throughout the colon and rectal vault. No evidence of acute diverticulitis. Questionable mural thickening involving the descending colon. Peritoneum and bowel: Bowel loops demonstrate normal wall thickness and caliber. No free fluid or air. Nodes and vessels: No retroperitoneal or mesenteric adenopathy by size criteria. Aorta and inferior vena cava are normal in size. Miscellaneous: No ventral hernias. PELVIS: Bladder unremarkable. Miscellaneous: No inguinal hernias or adenopathy. Bones: No suspicious bony lesions. Spondylitic changes and facet arthropathy. Possible left sided L5 pars defect. No vertebral body compression fractures. IMPRESSION: Distended gallbladder with wall thickening. This is suspicious for acute cholecystitis. Adjacent pericholecystic inflammatory change. Recommend correlation with LFTs and if necessary right upper quadrant ultrasound. Additional chronic and incidental findings as above. Findings concordant with the preliminary study interpretation provided at the time of the exam. Dictated by: Alex Topete M.D. on 02/11/2020 at 8:26 Approved by: Alex Topete M.D. on 02/11/2020 at 8:45 US - abdomen: Radiologist's Impression: [address] [address] Ultrasound Report Signed Patient: Neo Aragon VILMAR#: [id number] : 8Acct:[id number] Age/Sex: 69 / MDate of Service: 02/11/20 Loc: ED Accession Number: [id number] Procedure: US abdomen limited Ordering Provider: Ede Cruz D.O. PROCEDURE: US ABDOMEN LIMITED INDICATIONS: ABNORMAL GB ON CT TECHNIQUE: Real-time scanning was performed of the abdominal and retroperitoneal organs, with image documentation. COMPARISON: [facility], CT, CT CHEST ABD PEL W CON, 02/11/2020, 6:38. FINDINGS: Gallbladder: The gallbladder wall measures 6.8 mm in diameter. Non-mobile stones and sludge are present in the gallbladder fundus. There is trace pericholecystic fluid. The patient endorses a positive De Santiago's sign. Biliary ducts: Intrahepatic bile ducts are non-dilated. The common hepatic duct measures 6 mm in diameter IMPRESSION: 1. Cholelithiasis and gallbladder wall thickening and pericholecystic fluid suggesting acute cholecystitis. These findings were discussed with Dr. Otto at 8:45 AM on 02/11/20. Dictated by: Kristen Espino M.D. on 02/11/2020 at 8:42 Approved by: Kristen Espino M.D. on 02/11/2020 at 8:46 <Uriah Yang MD - Last Filed: 02/11/20 10:10> Lab Data Labs: Lab Results 02/11/20 02/11/20 02/11/20 Range/Units 06:00 06:00 06:00 WBC 24.8 H (4.5-11.0) X10^3/uL RBC 4.08 L (4.5-5.9) X10^6/uL Hgb 12.3 L (13.5-17.5) g/dL Hct 36.4 L (41-53) % MCV 89.1 (80-100) fL MCH 30.1 (26-34) PG MCHC 33.8 (30-36) % RDW 14.6 (11.6-14.8) % Plt Count 261 (150-400) X10^3/uL Neut % (Auto) 90.0 H (50-75) % Lymph % (Auto) 3.7 L (25-40) % [place] % (Auto) 6.0 (3-14) % Eos % (Auto) 0.1 L (2-4) % Baso % (Auto) 0.2 (0-2) % Neut # (Auto) 99782 H (0598-0756) /uL Lymph # (Auto) 900 L (5603-2076) /uL [place] # (Auto) 1500 H (0-900) /uL Eos # (Auto) 0 (0-450) /uL Baso # (Auto) 0 (0-100) /uL Sodium 131 L (137-145) mmol/L Potassium 4.5 (3.4-5.1) mmol/L Chloride 102 (98-107) mmol/L Carbon Dioxide 22 (22-32) mmol/L BUN 19 (9-20) mg/dL Creatinine 0.73 (0.66-1.25) mg/dL Estimated GFR > 60.0 (>60) mL/min BUN/Creatinine Ratio 26.0 H (6-22) Glucose 111 H (80-110) mg/dL Lactate 0.8 (0.7-2.1) mmol/L Calcium 9.1 (8.4-10.2) mg/dL Total Bilirubin 0.4 (0.2-1.3) mg/dL AST 17 (17-59) IU/L ALT 11 (<50) IU/L Alkaline Phosphatase 69 (38-126) U/L Total Protein 7.2 (6.3-8.2) g/dL Albumin 4.0 (3.5-5.0) g/dL Globulin 3.2 (1.7-4.1) g/dL Albumin/Globulin Ratio 1.3 (1.0-2.8) Lipase 23 (23-300) U/L Urine RBC (0-5/HPF) Urine WBC (0-5/HPF) Ur Squamous Epith Cells (0-5/HPF) Urine Bacteria (None) Urine Mucus (Negative) Ur Culture Indicated? COVID-19 PCR (Negative) 02/11/20 02/11/20 Range/Units 07:58 08:56 WBC (4.5-11.0) X10^3/uL RBC (4.5-5.9) X10^6/uL Hgb (13.5-17.5) g/dL Hct (41-53) % MCV (80-100) fL MCH (26-34) PG MCHC (30-36) % RDW (11.6-14.8) % Plt Count (150-400) X10^3/uL Neut % (Auto) (50-75) % Lymph % (Auto) (25-40) % [place] % (Auto) (3-14) % Eos % (Auto) (2-4) % Baso % (Auto) (0-2) % Neut # (Auto) (8486-3011) /uL Lymph # (Auto) (9862-5301) /uL [place] # (Auto) (0-900) /uL Eos # (Auto) (0-450) /uL Baso # (Auto) (0-100) /uL Sodium (137-145) mmol/L Potassium (3.4-5.1) mmol/L Chloride (98-107) mmol/L Carbon Dioxide (22-32) mmol/L BUN (9-20) mg/dL Creatinine (0.66-1.25) mg/dL Estimated GFR (>60) mL/min BUN/Creatinine Ratio (6-22) Glucose (80-110) mg/dL Lactate (0.7-2.1) mmol/L Calcium (8.4-10.2) mg/dL Total Bilirubin (0.2-1.3) mg/dL AST (17-59) IU/L ALT (<50) IU/L Alkaline Phosphatase (38-126) U/L Total Protein (6.3-8.2) g/dL Albumin (3.5-5.0) g/dL Globulin (1.7-4.1) g/dL Albumin/Globulin Ratio (1.0-2.8) Lipase (23-300) U/L Urine RBC 0-1/hpf (0-5/HPF) Urine WBC 0-1/hpf (0-5/HPF) Ur Squamous Epith Cells 1-5 /hpf (0-5/HPF) Urine Bacteria Occasional (0-1) (None) Urine Mucus 1+ H (Negative) Ur Culture Indicated? Cult not indicated COVID-19 PCR Negative (Negative) Point of care testing: Urine Dip Bedside Urine Glucose Negative Bedside Urine Bilirubin - Negative Bedside Urine Ketone +++ 80 Urine Specific [employer] 1.010 Bedside Urine Occult Blood - Negative Bedside Urine pH 6.5 Bedside Urine Protein +/- 15 Bedside Urine Urobilinogen +/- 1mg Bedside Urine Nitrite - Negative Bedside Urine Leukocytes +/- 15 Esterase <Ryan Otto MD - Last Filed: 02/11/20 21:36> Lab Data Labs: Lab Results 02/11/20 02/11/20 02/11/20 Range/Units 06:00 06:00 06:00 WBC 24.8 H (4.5-11.0) X10^3/uL RBC 4.08 L (4.5-5.9) X10^6/uL Hgb 12.3 L (13.5-17.5) g/dL Hct 36.4 L (41-53) % MCV 89.1 (80-100) fL MCH 30.1 (26-34) PG MCHC 33.8 (30-36) % RDW 14.6 (11.6-14.8) % Plt Count 261 (150-400) X10^3/uL Neut % (Auto) 90.0 H (50-75) % Lymph % (Auto) 3.7 L (25-40) % [place] % (Auto) 6.0 (3-14) % Eos % (Auto) 0.1 L (2-4) % Baso % (Auto) 0.2 (0-2) % Neut # (Auto) 64907 H (0790-0718) /uL Lymph # (Auto) 900 L (4480-2980) /uL [place] # (Auto) 1500 H (0-900) /uL Eos # (Auto) 0 (0-450) /uL Baso # (Auto) 0 (0-100) /uL Sodium 131 L (137-145) mmol/L Potassium 4.5 (3.4-5.1) mmol/L Chloride 102 (98-107) mmol/L Carbon Dioxide 22 (22-32) mmol/L BUN 19 (9-20) mg/dL Creatinine 0.73 (0.66-1.25) mg/dL Estimated GFR > 60.0 (>60) mL/min BUN/Creatinine Ratio 26.0 H (6-22) Glucose 111 H (80-110) mg/dL Lactate 0.8 (0.7-2.1) mmol/L Calcium 9.1 (8.4-10.2) mg/dL Total Bilirubin 0.4 (0.2-1.3) mg/dL AST 17 (17-59) IU/L ALT 11 (<50) IU/L Alkaline Phosphatase 69 (38-126) U/L Total Protein 7.2 (6.3-8.2) g/dL Albumin 4.0 (3.5-5.0) g/dL Globulin 3.2 (1.7-4.1) g/dL Albumin/Globulin Ratio 1.3 (1.0-2.8) Lipase 23 (23-300) U/L Urine RBC (0-5/HPF) Urine WBC (0-5/HPF) Ur Squamous Epith Cells (0-5/HPF) Urine Bacteria (None) Urine Mucus (Negative) Ur Culture Indicated? COVID-19 PCR (Negative) 02/11/20 02/11/20 Range/Units 07:58 08:56 WBC (4.5-11.0) X10^3/uL RBC (4.5-5.9) X10^6/uL Hgb (13.5-17.5) g/dL Hct (41-53) % MCV (80-100) fL MCH (26-34) PG MCHC (30-36) % RDW (11.6-14.8) % Plt Count (150-400) X10^3/uL Neut % (Auto) (50-75) % Lymph % (Auto) (25-40) % [place] % (Auto) (3-14) % Eos % (Auto) (2-4) % Baso % (Auto) (0-2) % Neut # (Auto) (0279-6152) /uL Lymph # (Auto) (9297-6562) /uL [place] # (Auto) (0-900) /uL Eos # (Auto) (0-450) /uL Baso # (Auto) (0-100) /uL Sodium (137-145) mmol/L Potassium (3.4-5.1) mmol/L Chloride (98-107) mmol/L Carbon Dioxide (22-32) mmol/L BUN (9-20) mg/dL Creatinine (0.66-1.25) mg/dL Estimated GFR (>60) mL/min BUN/Creatinine Ratio (6-22) Glucose (80-110) mg/dL Lactate (0.7-2.1) mmol/L Calcium (8.4-10.2) mg/dL Total Bilirubin (0.2-1.3) mg/dL AST (17-59) IU/L ALT (<50) IU/L Alkaline Phosphatase (38-126) U/L Total Protein (6.3-8.2) g/dL Albumin (3.5-5.0) g/dL Globulin (1.7-4.1) g/dL Albumin/Globulin Ratio (1.0-2.8) Lipase (23-300) U/L Urine RBC 0-1/hpf (0-5/HPF) Urine WBC 0-1/hpf (0-5/HPF) Ur Squamous Epith Cells 1-5 /hpf (0-5/HPF) Urine Bacteria Occasional (0-1) (None) Urine Mucus 1+ H (Negative) Ur Culture Indicated? Cult not indicated COVID-19 PCR Negative (Negative) Point of care testing: Urine Dip Bedside Urine Glucose Negative Bedside Urine Bilirubin - Negative Bedside Urine Ketone +++ 80 Urine Specific [employer] 1.010 Bedside Urine Occult Blood - Negative Bedside Urine pH 6.5 Bedside Urine Protein +/- 15 Bedside Urine Urobilinogen +/- 1mg Bedside Urine Nitrite - Negative Bedside Urine Leukocytes +/- 15 Esterase Discharge Plan Departure Patient Disposition: Admitted As Inpatient Clinical Impression: Acute calculous cholecystitis Discharge Date/Time: 02/11/20 09:20 Admit Date/Time: 02/11/20 09:13 Admit Provider: Uriah Yang
--- NOTE | 2020-02-11 06:11 | DI.RAD.S_ITS ---
PROCEDURE: XR ACUTE ABDOMEN SERIES INDICATIONS: Abdominal pain TECHNIQUE: One view chest and two views of the abdomen were acquired. COMPARISON: [facility], CR, XR CHEST 2V, 09/29/2019, 8:56. FINDINGS: Surgical changes and devices: Median sternotomy wires. Surgical clips at the gastroesophageal junction. Chest: Lungs are clear. Heart size is normal. No pleural effusions. No pneumoperitoneum. Abdomen: Bowel gas pattern is nonspecific No suspicious calcifications. Visualized solid organ contours appear normal. Bones: No suspicious bony lesions. IMPRESSION: Nonspecific bowel gas pattern without definite obstruction. Dictated by: Chantell Crawford MD, PhD on 02/11/2020 at 8:31 Approved by: Chantell Crawford MD, PhD on 02/11/2020 at 8:34
[2020-02-11] MEDS: HYDROMORPHONE 0.5 MG INJ IV ×4 (06:21→21:05)
[2020-02-11] MEDS: ONDANSETRON 4 MG/2 ML INJ IV (06:21)
[2020-02-11] MEDS: SODIUM CHLORIDE 0.9% 1,000 ML 150 ML IV (06:22)
[2020-02-11 06:24] LABS: Add Manual Diff / Slide Review NO; Basophils Absolute Auto 0 /uL (0-100); Basophils Percent Auto 0.2 % (0-2); Eosinophils Absolute Auto 0 /uL (0-450); Eosinophils Percent Auto 0.1 % (2-4); Hematocrit 36.4 % (41-53); Hemoglobin 12.3 g/dL (13.5-17.5); Lymphocytes Absolute Auto 900 /uL (1100-4500); Lymphocytes Percent Auto 3.7 % (25-40); Mean Corpuscular HGB Conc 33.8 % (30-36); Mean Corpuscular Hemoglobin 30.1 PG (26-34); Mean Corpuscular Volume 89.1 fL (80-100); Monocytes Absolute Auto 1500 /uL (0-900); Neutrophils Absolute Auto 22400 /uL (1500-7000); Platelet Count 261 X10^3/uL (150-400); Red Blood Cell Count 4.08 X10^6/uL (4.5-5.9); Red Cell Distribution Width 14.6 % (11.6-14.8); White Blood Cell Count 24.8 X10^3/uL (4.5-11.0)
[2020-02-11 06:28] LABS: Lactate (Lactic Acid) 0.8 mmol/L (0.7-2.1)
[2020-02-11 06:29] LABS: Alanine Aminotransferase 11 IU/L (<50); Albumin Globulin Ratio 1.3 (1.0-2.8); Alkaline Phosphatase 69 U/L (38-126); Aspartate Aminotransferase 17 IU/L (17-59); Bilirubin Total 0.4 mg/dL (0.2-1.3); Blood Urea Nitrogen 19 mg/dL (9-20); Calcium 9.1 mg/dL (8.4-10.2); Carbon Dioxide 22 mmol/L (22-32); Chloride 102 mmol/L (98-107); Estimated Glomerular Filt Rate > 60.0 mL/min (>60); Globulin 3.2 g/dL (1.7-4.1); Glucose 111 mg/dL (80-110); HEMOLYSIS < 15 (0-50); Lipase 23 U/L (23-300); Potassium 4.5 mmol/L (3.4-5.1); Sodium 131 mmol/L (137-145); Total Protein 7.2 g/dL (6.3-8.2)
--- NOTE | 2020-02-11 07:28 | DI.CT.S_ITS ---
PROCEDURE: CT CHEST ABD PEL W CON INDICATIONS: severe mid to upper abdominal pain, vomiting, recent CABG TECHNIQUE: After the administration of intravenous contrast, 5 mm thick sections acquired from the lung apices to the symphysis. 5 mm coronal and sagittal reformats were performed, with additional 7 mm MIP reformats through the lungs. For radiation dose reduction, the following was used: automated exposure control, adjustment of mA and/or kV according to patient size. COMPARISON: None. FINDINGS: Image quality: Excellent. CHEST: Lungs and pleura: Scattered subsegmental atelectasis and/or scarring. No focal consolidation. Airway thickening in keeping with nonspecific bronchitis and/or reactive airways disease. No pleural effusions or pneumothorax. Mediastinum: Heart size is normal. No pericardial effusion. No mediastinal or hilar adenopathy by size criteria. Thoracic aorta and central pulmonary arteries are normal in size. Esophagus is normal in caliber. No hiatal hernia. Chest wall: No axillary or supraclavicular adenopathy by size criteria. Thyroid gland negative. ABDOMEN: Solid organs: Subcentimeter hepatic hypodensities are probably small cysts or hemangiomas, although technically too small to characterize accurately. Gallbladder is distended. There is wall thickening. No radiopaque cholelithiasis identified. However there is adjacent pericholecystic inflammatory stranding and changes. Extra hepatic bile duct system is non dilated. Pancreas enhances normally. Spleen is normal in size and enhancement. No adrenal nodules. No hydronephrosis. Nonobstructing 1 mm left nephrolithiasis. Parapelvic cyst on the left. Simple appearing bilateral renal cysts. Normal appendix. Large amount of stool seen throughout the colon and rectal vault. No evidence of acute diverticulitis. Questionable mural thickening involving the descending colon. Peritoneum and bowel: Bowel loops demonstrate normal wall thickness and caliber. No free fluid or air. Nodes and vessels: No retroperitoneal or mesenteric adenopathy by size criteria. Aorta and inferior vena cava are normal in size. Miscellaneous: No ventral hernias. PELVIS: Bladder unremarkable. Miscellaneous: No inguinal hernias or adenopathy. Bones: No suspicious bony lesions. Spondylitic changes and facet arthropathy. Possible left sided L5 pars defect. No vertebral body compression fractures. IMPRESSION: Distended gallbladder with wall thickening. This is suspicious for acute cholecystitis. Adjacent pericholecystic inflammatory change. Recommend correlation with LFTs and if necessary right upper quadrant ultrasound. Additional chronic and incidental findings as above. Findings concordant with the preliminary study interpretation provided at the time of the exam. Dictated by: Alex Topete M.D. on 02/11/2020 at 8:26 Approved by: Alex Topete M.D. on 02/11/2020 at 8:45
[2020-02-11] MEDS: PIPERACILLIN-TAZO 3.375 GM/50 ML FROZ.PIGGY IV ×3 (07:36→21:05)
--- NOTE | 2020-02-11 07:40 | DI.US.S_ITS ---
PROCEDURE: US ABDOMEN LIMITED INDICATIONS: ABNORMAL GB ON CT TECHNIQUE: Real-time scanning was performed of the abdominal and retroperitoneal organs, with image documentation. COMPARISON: [facility], CT, CT CHEST ABD PEL W CON, 02/11/2020, 6:38. FINDINGS: Gallbladder: The gallbladder wall measures 6.8 mm in diameter. Non-mobile stones and sludge are present in the gallbladder fundus. There is trace pericholecystic fluid. The patient endorses a positive De Santiago's sign. Biliary ducts: Intrahepatic bile ducts are non-dilated. The common hepatic duct measures 6 mm in diameter IMPRESSION: 1. Cholelithiasis and gallbladder wall thickening and pericholecystic fluid suggesting acute cholecystitis. These findings were discussed with Dr. Otto at 8:45 AM on 02/11/20. Dictated by: Kristen Espino M.D. on 02/11/2020 at 8:42 Approved by: Kristen Espino M.D. on 02/11/2020 at 8:46
[2020-02-11 08:31] LABS: Bacteria Urine Occasional (0-1); Culture Indicated Urine Cult Not Indicated; Mucus Urine 1+ (Negative); RBC Urine 0-1/HPF (0-5/HPF); Squamous Epithelial Cell Urine 1-5 /HPF (0-5/HPF); WBC Urine 0-1/HPF (0-5/HPF)
--- NOTE | 2020-02-11 08:38 | PC.NURSE ---
Patient in room medicated for pain. He is laying on side and very relaxed. His O2 saturation was dropping down to 84%. I roused him and put him on 2l Nasal cannula. He denies sleep apnea. He stated that he had a sleep study and was not a candidate for CPAP becasue his score for sleep apnea did not indicate CPAP.
--- NOTE | 2020-02-11 09:33 | PC.NURSE ---
Day shift: Pt on unit at approx 0930 from ED. Covid pending and precautions in place. Pt to have gallbladder surgery today. Pt is A&Ox3. Oriented to room and call light. Spouse in room for support. Surgery RN has called and said they will be here soon to take Pt to surgery.
[2020-02-11 10:00] LABS: COVID19 -Nasal RAPID Negative (Negative)
--- NOTE | 2020-02-11 10:03 | PC.NURSE ---
Day shift: Pt off unit for lap choli at approx 1000.
--- NOTE | 2020-02-11 10:10 | PM.HP.1 ---
History of Present Illness History of Present Illness Date Patient Seen: 02/11/20 Time Patient Seen: 10:22 Chief complaint: stomach pain since friday Narrative: This is a 69-year-old man who presents for evaluation of acute cholecystitis. He had some vague abdominal pain beginning 4 days ago that is become progressively worsened focus in the epigastric and right upper quadrant area. He has some associated nausea and vomiting no fever. Aggravated by taking a deep breath. He was evaluated in the emergency room today where he underwent a CT of the abdomen pelvis demonstrates acute cholecystitis with cholelithiasis. White blood cell count on admission is 25, LFTs are unremarkable. Had a recent coronary artery bypass within the last several months which he has recovered from uneventfully and has good functional status. He is nonsmoker and not on anticoagulation. Denies any current chest pain shortness of breath. Patient History Medical History (Updated 02/11/20 @ 10:25 by Uriah Yang MD) Coronary artery disease (Acute) Surgical History (Updated 02/11/20 @ 06:27 by Ede Cruz DO) S/P CABG (coronary artery bypass graft) (Acute) Family & Social History Safety & Behavioral: Feels Safe in Current Yes Environment Tobacco & Substance use: Smoking Status Never smoker alcohol intake frequency holiday/special occasion Substance Use Type does not use Meds Home Medications and Allergies Home Medications Medication Instructions Recorded Confirmed Type losartan 50 mg PO DAILY #0 10/16/17 05/22/18 History magnesium oxide 400 mg PO DAILY #0 10/16/17 02/11/20 History Calcium 1 tab PO BID 05/22/18 05/22/18 History Vitamin C 1 tab PO DAILY 05/22/18 05/22/18 History Vitamin D3 1 cap PO DAILY 05/22/18 05/22/18 History bicalutamide 50 mg PO Q OTHER DAY 02/11/20 02/11/20 History hydrocodone-acetaminophen 1 tab PO Q4H PRN 02/11/20 02/11/20 History metoprolol tartrate 25 mg PO DAILY 02/11/20 02/11/20 History rosuvastatin 40 mg PO DAILY 02/11/20 02/11/20 History Allergies Allergy/AdvReac Type Severity Reaction Status Date / Time caffeine [CAFFEINE] AdvReac Unknown HEADACHE, Verified 02/11/20 10:26 VOMITING glutamine [GLUTAMINE] AdvReac Unknown HEADACHE, Verified 02/11/20 10:26 VOMITING Nitrate Analogues AdvReac Unknown HEADACHE, Verified 02/11/20 10:26 [NITRATE ANALOGUES] VOMITING Sulfa (Sulfonamide AdvReac Unknown VOMITING, Verified 02/11/20 10:26 Antibiotics) RACING [SULFA (SULFONAMIDE HEART ANTIBIOTICS)] cheese AdvReac Headache Verified 02/11/20 10:26 monosodium glutamate AdvReac Vomiting Verified 02/11/20 10:26 Review of Systems Review of Systems Narrative: A 10 point review of systems is negative except as noted in the HPI Exam Vital Signs (past 8 hours): - 02/11/20 06:00 02/11/20 07:52 02/11/20 08:36 Temperature 98.8 F 98.0 F Pulse Rate 68 66 59 L Respiratory Rate 23 17 11 L Blood Pressure 152/77 H Blood Pressure [Right Arm] 176/74 H 122/60 Pulse Oximetry 100 97 99 02/11/20 09:34 Temperature 97.2 F L Pulse Rate 60 Respiratory Rate 15 Blood Pressure 134/71 Blood Pressure [Right Arm] Pulse Oximetry 100 Oxygen Delivery Method Nasal Cannula Oxygen Flow Rate 2 Narrative Exam Narrative: General-no acute distress, well nourished elderly man HEENT-moist mucous membranes, no scleral icterus Neck-supple, no lymphadenopathy Chest- non labored respirations, clear to auscultation bilaterally Cardiac-regular rate no peripheral edema Abdomen-positive De Santiago sign. Extremities-warm, well perfused Neurological-alert and oriented, no focal deficits Objective Labs Result Diagrams: 02/11/20 06:00 02/11/20 06:00 Labs: Laboratory Results - last 24 hr 02/11/20 02/11/20 02/11/20 06:00 06:00 06:00 WBC 24.8 H RBC 4.08 L Hgb 12.3 L Hct 36.4 L MCV 89.1 MCH 30.1 MCHC 33.8 RDW 14.6 Plt Count 261 Neut % (Auto) 90.0 H Lymph % (Auto) 3.7 L [place] % (Auto) 6.0 Eos % (Auto) 0.1 L Baso % (Auto) 0.2 Neut # (Auto) 75743 H Lymph # (Auto) 900 L [place] # (Auto) 1500 H Eos # (Auto) 0 Baso # (Auto) 0 Sodium 131 L Potassium 4.5 Chloride 102 Carbon Dioxide 22 BUN 19 Creatinine 0.73 Estimated GFR > 60.0 BUN/Creatinine Ratio 26.0 H Glucose 111 H Lactate 0.8 Calcium 9.1 Total Bilirubin 0.4 AST 17 ALT 11 Alkaline Phosphatase 69 Total Protein 7.2 Albumin 4.0 Globulin 3.2 Albumin/Globulin Ratio 1.3 Lipase 23 Urine RBC Urine WBC Ur Squamous Epith Cells Urine Bacteria Urine Mucus Ur Culture Indicated? COVID-19 PCR 02/11/20 02/11/20 07:58 08:56 WBC RBC Hgb Hct MCV MCH MCHC RDW Plt Count Neut % (Auto) Lymph % (Auto) [place] % (Auto) Eos % (Auto) Baso % (Auto) Neut # (Auto) Lymph # (Auto) [place] # (Auto) Eos # (Auto) Baso # (Auto) Sodium Potassium Chloride Carbon Dioxide BUN Creatinine Estimated GFR BUN/Creatinine Ratio Glucose Lactate Calcium Total Bilirubin AST ALT Alkaline Phosphatase Total Protein Albumin Globulin Albumin/Globulin Ratio Lipase Urine RBC 0-1/hpf Urine WBC 0-1/hpf Ur Squamous Epith Cells 1-5 /hpf Urine Bacteria Occasional (0-1) Urine Mucus 1+ H Ur Culture Indicated? Cult not indicated COVID-19 PCR Negative Assessment & Plan Assessment and plan (1) Acute calculous cholecystitis: Status: Acute Assessment & Plan narrative: 69-year-old man with acute cholecystitis with of 4 days symptoms. I reviewed his CT abdomen pelvis which demonstrates acute cholecystitis with cholelithiasis. Wall is edematous and there is ana laura cholecystic fluid. Laboratory studies were reviewed, white blood cell count 25 LFTs are normal. I told him that I recommend that we proceed with a laparoscopic cholecystectomy for treatment of his acute cholecystitis. I melinda him diagram to demonstrate the disease process as well as the surgical intervention. I described the surgical risks to him including myocardial infarction stroke bleeding infection bile duct injury, intestinal injury conversion to an open operation. Of note he is a [employer] and discussed with me that he had does not want a any blood transfusion but he is okay with albumin if necessary. I told him that with several days worth of symptoms and his CT scanning side expected he has significant acute cholecystitis and that this increases the chance of needing to convert to an open operation as well as increased risk of the overall operation his questions have been answered and he is in agreement with this plan will proceed to the operating room. MARKID-19 COVID-19 status: Negative Result date/Date tested (Pos, Neg/Pending): 02/11/20
--- NOTE | 2020-02-11 11:02 | SUR.OPER ---
Supine on padded OR bed, head on pillow, right arm secured on padded arm boards at <90 degrees abduction, left arm is tucked, legs uncrossed, safety belt at thigh, tape over blanket over lower legs.
[2020-02-11] MEDS: BUPIVACAINE 0.25% (PF) VIAL 30 ML INJ (11:11)
[2020-02-11] MEDS: LACTATED RINGERS 1,000 ML 42 ML IV (11:50)
--- NOTE | 2020-02-11 12:21 | P.OP_ITS ---
Operative Date/Time/Diagnoses Date of procedure: 02/11/20 Time of procedure: 12:22 Pre-op diagnosis: Acute cholecystitis Post-op diagnosis: same Procedure & Clinicians Procedure: Laparoscopic cholecystectomy Same procedure as scheduled: Yes Indications: 69-year-old man with 4 days of abdominal pain and was found have acute cholecystitis on imaging. LFTs are normal white blood cell count 25 Surgeon: Uriah Yang Click Yes if Unassisted: Yes Anesthesia Type: General Operative Notes Findings: Contracted acutely inflamed gallbladder with significant fat stranding Specimen(s): other (Gallbladder) Estimated Blood Loss (mL): 50 Procedure in detail: The patient was placed supine on the table and bilateral lower extremity compression devices were applied. Anesthesia was induced they were intubated with an endotracheal tube and received 3.375 g of Zosyn. A time- out was performed. They were prepped and draped in sterile fashion. An infraumbilical incision was made, the umbilical stalk was elevated and the fascia was sharply incised entering the abdomen atraumatically. A blunt tip 12mm balloon trocar was then inserted, pneumoperitoneum was established and inspection of the abdomen demonstrated no evidence of injury. They were placed head up and right side up and then a 11 mm port was placed high in the epigastrium and two 5mm in the right upper quadrant. The gallbladder was contracted and extremely inflamed difficult to grasp. Using a laparoscopic needle with a catheter the gallbladder was decompressed. Were multiple adhesions between the omentum and the gallbladder which were carefully taken down. The gallbladder was grasped by the fundus and retracted over the liver and retracted laterally by the infundibulum. Using electrocautery the lateral plane between the gallbladder and the liver was opened towards the fundus. Gallbladder wall was of extremely edematous and the plane between the gallbladder and the liver was extremely difficult. The gallbladder was then retracted laterally and the medial plane was developed in the same manner. With the gallbladder mobilized the bottom of the cystic plate was visualized. The hepatocystic triangle was meticulosly skeletonized using hook electrocautery as well as blunt dissection with the suction street light servicer supervisor of all fat and fibrous tissue from both the front and the back. Only two structures were then clearly seen entering the gallbladder the cystic duct and the cystic artery. With the critical view of safety fully established the cystic duct was clipped twice proximally and once distally using the 10 mm clip applied under direct visualization and then sharply divided. The cystic artery was divided in the same fashion. The gallbladder was removed from the liver bed using electro cautery. The liver bed was then inspected for hemostasis and this was achieved. The abdomen was irrigated with 3 L of sterile saline and inspection was made that showed the clips in good position. The specimen was removed using Endo- Catch. Given the significant amount of inflammation I placed a 19 [place] drain through the right upper quadrant ports into the gallbladder fossa. The drain was secured with the 3 0 nylon suture. The abdomen was desufflated. The umbilical fascia was closed with 0 Vicryl in a [id number] fashion under direct visualization. Skin incisions were irrigated and closed with 4-0 Monocryl. 30 ml of 0.25% bupivacaine was infiltrated into the subcutaneous tissue of the incisions. The wounds were sealed with Dermabond. Patient emerged from anesthesia was extubated and transferred to recovery in stable condition. The sponge and instrument count at the end of the operation was shawn ect. Complications: none Post-operative Condition: stable Disposition: Acute Care
[2020-02-11] MEDS: fentaNYL 100 MCG/2 ML INJ IV (12:47)
--- NOTE | 2020-02-11 13:21 | SUR.PHASEI ---
report to REBEKA badillo. Pt ready for transport to room 218
--- NOTE | 2020-02-11 13:34 | SUR.PHASEI ---
tranferred care to Yasarine. Pt in stable condition upon transfer. at bedside.
--- NOTE | 2020-02-11 13:34 | PC.NURSE ---
Day shift: Pt back on AC unit at this time. Post-op vitals WNL. RA 96%. Spouse in room for support. Lap sites CDI. ROBBIE drain patent. Call light in reach. Agrees to not get OOB w/o help from staff.
[2020-02-11] MEDS: OXYCODONE IR 5 MG TABLET PO (15:23)
[2020-02-11] MEDS: ACETAMINOPHEN 325 MG TABLET 650 MG PO ×2 (16:19→23:38)
[2020-02-11] MEDS: METOPROLOL IR 25 MG TABLET PO (21:05)
[2020-02-12] VITALS (7 sets, daily range): BP systolic 100–114; BP diastolic 48–59; PULSE 52–55; RESP 14–18; TEMP 36.4–36.6; O2SAT 95–97
[2020-02-12] MEDS: HYDROMORPHONE 0.5 MG INJ IV ×3 (02:21→13:53)
[2020-02-12 05:24] LABS: Alanine Aminotransferase 27 IU/L (<50); Albumin 3.4 g/dL (3.5-5.0); Albumin Globulin Ratio 1.2 (1.0-2.8); Alkaline Phosphatase 55 U/L (38-126); Aspartate Aminotransferase 40 IU/L (17-59); BUN Creatinine Ratio 22.7 (6-22); Bilirubin Total 0.2 mg/dL (0.2-1.3); Blood Urea Nitrogen 17 mg/dL (9-20); Calcium 8.4 mg/dL (8.4-10.2); Carbon Dioxide 22 mmol/L (22-32); Chloride 103 mmol/L (98-107); Estimated Glomerular Filt Rate > 60.0 mL/min (>60); Globulin 2.9 g/dL (1.7-4.1); Glucose 133 mg/dL (80-110); HEMOLYSIS < 15 (0-50); Potassium 4.8 mmol/L (3.4-5.1); Sodium 131 mmol/L (137-145); Total Protein 6.3 g/dL (6.3-8.2)
[2020-02-12 05:31] LABS: Add Manual Diff / Slide Review YES; Hematocrit 30.9 % (41-53); Hemoglobin 10.4 g/dL (13.5-17.5); Mean Corpuscular HGB Conc 33.7 % (30-36); Mean Corpuscular Hemoglobin 30.3 PG (26-34); Mean Corpuscular Volume 89.9 fL (80-100); Platelet Count 233 X10^3/uL (150-400); Red Blood Cell Count 3.44 X10^6/uL (4.5-5.9); Red Cell Distribution Width 14.9 % (11.6-14.8); White Blood Cell Count 28.6 X10^3/uL (4.5-11.0)
[2020-02-12] MEDS: ACETAMINOPHEN 325 MG TABLET 650 MG PO ×3 (05:36→17:51)
[2020-02-12] MEDS: PIPERACILLIN-TAZO 3.375 GM/50 ML FROZ.PIGGY IV ×3 (05:37→21:28)
[2020-02-12 07:21] LABS: Neutrophils Absolute Manual 26598 /uL (3000-5900); RBC Morphology Normal Morphology; Total Cells Counted 100
[2020-02-12] MEDS: METOPROLOL IR 25 MG TABLET PO ×2 (09:42→23:10)
[2020-02-12] MEDS: ROSUVASTATIN 10 MG TABLET 40 MG PO (09:42)
[2020-02-12] MEDS: ENOXAPARIN 30 MG/0.3 ML SYRINGE SUBCUT (09:42)
[2020-02-12] MEDS: MAGNESIUM OXIDE 400 MG TABLET PO (09:43)
[2020-02-12] MEDS: OXYCODONE IR 5 MG TABLET PO ×2 (10:00→17:51)
[2020-02-12] MEDS: SODIUM CHLORIDE 0.9% FLUSH 10 ML IV ×3 (10:03→21:28)
--- NOTE | 2020-02-12 11:02 | PM.PNPO.1 ---
Subjective Subjective Date Patient Seen: 02/12/20 Time Patient Seen: 11:02 Interval history: THE PATIENT IS A GENTLEMAN who had a markedly inflamed gallbladder removed yesterday. He feels much better today than he did yesterday. He is tolerating p.o. thus far without any nausea. It hurts when he hit cups or if he takes a deep breath. Exam Vital Signs (past 8 hours): - 02/12/20 05:00 02/12/20 09:13 Temperature 97.8 F 97.6 F Pulse Rate 55 L 55 L Respiratory Rate 18 16 Blood Pressure 100/56 L 114/59 L Pulse Oximetry 96 95 Oxygen Delivery Method Room Air Oxygen Flow Rate 0 Narrative Exam Narrative: Cooperative pleasant gentleman in no apparent distress. Midline chest scar is hyperemic from a recent coronary artery bypass graft. It is not cellulitic. Incisions from his laparoscopic cholecystectomy are intact. There is bruising which is not unusual in the area near the umbilicus. His abdomen is soft. There is no unusual tenderness. His lungs are clear to auscultation the there is a little decreased breath sounds on the right. Heart distant tones regular rate and rhythm. Objective Labs Result Diagrams: 02/12/20 05:00 02/12/20 05:00 Labs: Laboratory Results - last 24 hr 02/12/20 02/12/20 05:00 05:00 WBC 28.6 H RBC 3.44 L Hgb 10.4 L Hct 30.9 L MCV 89.9 MCH 30.3 MCHC 33.7 RDW 14.9 H Plt Count 233 Neut % (Auto) Not Reportable Lymph % (Auto) Not Reportable [place] % (Auto) Not Reportable Eos % (Auto) Not Reportable Baso % (Auto) Not Reportable Lymph # (Auto) Not Reportable [place] # (Auto) Not Reportable Baso # (Auto) Not Reportable Total Counted 100 Seg Neutrophils % 70.0 Band Neutrophils % 23.0 H Lymphocytes % (Manual) 4.0 L Monocytes % (Manual) 2.0 Metamyelocytes % 1.0 H Neutrophils # (Manual) 88572 H RBC Morphology Normal morphology Sodium 131 L Potassium 4.8 Chloride 103 Carbon Dioxide 22 BUN 17 Creatinine 0.75 Estimated GFR > 60.0 BUN/Creatinine Ratio 22.7 H Glucose 133 H Calcium 8.4 Total Bilirubin 0.2 AST 40 ALT 27 Alkaline Phosphatase 55 Total Protein 6.3 Albumin 3.4 L Globulin 2.9 Albumin/Globulin Ratio 1.2 Assessment & Plan Post-op Postoperative Procedures: Procedures Operation Date: 02/11/20 10:30 Actual Procedures Side Surgeon p Laparoscopic Cholecystectomy Uriah Yang MD Postoperative day: 1 Postoperative status narrative: White blood cell count is a bit disconcerting. However it was quite elevated preoperatively and we often see a bump in the immediate postop period. He has no signs of peritonitis on exam. Does have root decreased breath sounds on the right and I will get an incentive spirometer as this could be the source of his elevation of his white blood cell count as well. Postoperative plan narrative: Incentive spirometer. Labs ordered for the morning. Continue his medications for infection (Zosyn), DVT prophylaxis (Lovenox along with SCDs), hypothyroidism (levothyroxine), hypertension (lisinopril), coronary artery disease (metoprolol), and elevated lipids (statin). At present his heart rate is well controlled with his metoprolol and his blood pressure is normal.
--- NOTE | 2020-02-12 14:48 | PC.NURSE ---
Shift summary: Patient pleasant and talkative today. Tolerating full liquid diet without nausea or upset stomach, states he is hoping for an increased diet tonight. Steri strips to abdominal lap site remain CDI, with bulb drain to Right quadrant in place, compressed and intact draining serosangenous fluids. Patient reports moderate to severe pain with some movements, coughing or deep breathing. Using oxycodone prn, dilaudid and tylenol as ordered for adequate pain management. Patient given incentive spirometer and education and now using independently at bedside every hour while awake. He states he is very familiar with its use from his previous surgery. Patient up with standby assistance (gait belt and walker) to bathroom and chair today and tolerated well. Call light within reach, patient agrees to call for assistance for safety.
--- NOTE | 2020-02-12 14:50 | CM.IDA ---
Initial DCP Assessment Note: Patient is a 69 yo male, resident of [place]. Patient is POD#1 from [facility] PCP: Albino Feng Payer: PARUL/[employer] Met w/patient to introduce SW/DCP role. Patient explains he lives w/his and his grand dtr/spouse live in their basement. Patient recently had heart surgery (October 2019) and went home to recover w/assist from his family. Patient expects to return home w/family to assist after this hospitalization and denies needs from this CAR TR[employer]ER. Patient is mostly indp and active at baseline, and feels he has a very good support network. P: DC expected home w/family when medically cleared. Following in case any DC needs/concerns arise. DILIP Jewell Discharge Planning/Care Management CM Discharge Assessment Start: 02/12/20 14:42 Freq: Status: Active Protocol: Document 02/12/20 14:43 KSENIA (Rec: 02/12/20 14:50 KSENIA [id number]) Discharge Planning Assessment Assigned Active Directory Specialist DILIP Jimenez DPOA/Assigned Designee Name Stephanie Aragon, spouse Contact Information [phone], home , cell Advance Directives? Yes History Provided By Patient Prior Living Arrangements House Household Members spouse,family Comment Granddtr and her spouse live in the basement and can assist as needed Type of transporation used prior to Relies on Others admit Independent with ADL's Yes Is patient alert and oriented? Yes Needs Assistance With Meal Prep Barriers to Discharge No Discharge Plan Home Transportation Arrangement Family
--- NOTE | 2020-02-12 23:13 | PC.NURSE ---
pt reported being light headed in the morning, but denied any dizziness or lightheadedness for meme shift. pt's pain is controlled with oxycodone. refused his dilaudid. ambulated in hallways. pt tolerated full liquid diet. he had two bowls of soup and pudding. ROBBIE drain had 25cc out. lap sites intact. call ligth in reach. bed alarm active.
[2020-02-13] VITALS (9 sets, daily range): BP systolic 97–125; BP diastolic 42–63; PULSE 53–59; RESP 16–19; TEMP 36.2–36.9; O2SAT 96–98
[2020-02-13] MEDS: ACETAMINOPHEN 325 MG TABLET 650 MG PO ×5 (00:09→23:25)
[2020-02-13] MEDS: OXYCODONE IR 5 MG TABLET PO ×2 (01:44→23:43)
[2020-02-13 05:44] LABS: Add Manual Diff / Slide Review NO; Basophils Absolute Auto 200 /uL (0-100); Eosinophils Absolute Auto 100 /uL (0-450); Eosinophils Percent Auto 0.8 % (2-4); Hematocrit 29.5 % (41-53); Hemoglobin 9.8 g/dL (13.5-17.5); Lymphocytes Absolute Auto 1700 /uL (1100-4500); Lymphocytes Percent Auto 10.3 % (25-40); Mean Corpuscular HGB Conc 33.3 % (30-36); Mean Corpuscular Hemoglobin 30.2 PG (26-34); Mean Corpuscular Volume 90.8 fL (80-100); Monocytes Absolute Auto 1100 /uL (0-900); Monocytes Percent Auto 6.4 % (3-14); Neutrophils Absolute Auto 13700 /uL (1500-7000); Neutrophils Percent Auto 81.5 % (50-75); Platelet Count 235 X10^3/uL (150-400); Red Blood Cell Count 3.25 X10^6/uL (4.5-5.9); Red Cell Distribution Width 14.8 % (11.6-14.8); White Blood Cell Count 16.8 X10^3/uL (4.5-11.0)
[2020-02-13 05:49] LABS: Alanine Aminotransferase 22 IU/L (<50); Albumin 3.4 g/dL (3.5-5.0); Albumin Globulin Ratio 1.2 (1.0-2.8); Alkaline Phosphatase 58 U/L (38-126); Aspartate Aminotransferase 23 IU/L (17-59); BUN Creatinine Ratio 22.2 (6-22); Bilirubin Total 0.1 mg/dL (0.2-1.3); Blood Urea Nitrogen 18 mg/dL (9-20); Calcium 8.7 mg/dL (8.4-10.2); Carbon Dioxide 30 mmol/L (22-32); Chloride 102 mmol/L (98-107); Estimated Glomerular Filt Rate > 60.0 mL/min (>60); Globulin 2.8 g/dL (1.7-4.1); Glucose 90 mg/dL (80-110); HEMOLYSIS < 15 (0-50); Potassium 4.7 mmol/L (3.4-5.1); Sodium 134 mmol/L (137-145); Total Protein 6.2 g/dL (6.3-8.2)
[2020-02-13] MEDS: PIPERACILLIN-TAZO 3.375 GM/50 ML FROZ.PIGGY IV ×3 (06:03→21:54)
[2020-02-13] MEDS: LEVOTHYROXINE 25 MCG TABLET PO (08:52)
[2020-02-13] MEDS: MAGNESIUM OXIDE 400 MG TABLET PO (08:53)
[2020-02-13] MEDS: ROSUVASTATIN 10 MG TABLET 40 MG PO (08:53)
[2020-02-13] MEDS: SODIUM CHLORIDE 0.9% FLUSH 10 ML IV ×2 (08:54→21:55)
[2020-02-13] MEDS: METOPROLOL IR 25 MG TABLET PO ×2 (08:54→21:55)
[2020-02-13] MEDS: ENOXAPARIN 40 MG/0.4 ML SYRINGE SUBCUT (08:55)
[2020-02-13] MEDS: HYDROMORPHONE 0.5 MG INJ IV ×3 (09:14→21:54)
--- NOTE | 2020-02-13 11:38 | PM.PNPO.1 ---
Subjective Subjective Date Patient Seen: 02/13/20 Time Patient Seen: 11:38 Interval history: The patient is feeling constipated. Requesting stool softeners. Feels lousy today. Exam Vital Signs (past 8 hours): - 02/13/20 05:00 02/13/20 08:00 Temperature 97.6 F 97.7 F Pulse Rate 58 L 57 L Respiratory Rate 18 18 Blood Pressure 125/63 117/60 Pulse Oximetry 97 97 Oxygen Delivery Method Room Air Oxygen Flow Rate 0 Narrative Exam Narrative: Lungs are clear. Heart regular rate and rhythm without murmur gallop. Abdomen is mildly distended soft. No tenderness. No cellulitis. Drainage is serous. Objective Labs Result Diagrams: 02/13/20 05:15 02/13/20 05:15 Labs: Laboratory Results - last 24 hr 02/13/20 02/13/20 05:15 05:15 WBC 16.8 H RBC 3.25 L Hgb 9.8 L Hct 29.5 L MCV 90.8 MCH 30.2 MCHC 33.3 RDW 14.8 Plt Count 235 Neut % (Auto) 81.5 H Lymph % (Auto) 10.3 L [place] % (Auto) 6.4 Eos % (Auto) 0.8 L Baso % (Auto) 1.0 Neut # (Auto) 59897 H Lymph # (Auto) 1700 [place] # (Auto) 1100 H Eos # (Auto) 100 Baso # (Auto) 200 H Sodium 134 L Potassium 4.7 Chloride 102 Carbon Dioxide 30 BUN 18 Creatinine 0.81 Estimated GFR > 60.0 BUN/Creatinine Ratio 22.2 H Glucose 90 Calcium 8.7 Total Bilirubin 0.1 L AST 23 ALT 22 Alkaline Phosphatase 58 Total Protein 6.2 L Albumin 3.4 L Globulin 2.8 Albumin/Globulin Ratio 1.2 Assessment & Plan Post-op Postoperative Procedures: Procedures Operation Date: 02/11/20 10:30 Actual Procedures Side Surgeon p Laparoscopic Cholecystectomy Uriah Yang MD Postoperative day: 2 Postoperative status narrative: Patient doing okay. White blood cell count has come down remarkably but is still quite elevated at 16 with a left shift. Postoperative plan narrative: Will continue IV antibiotics. Drain may be removed today. Advance diet. Probable discharge in the morning. Labs are ordered. Continue blood pressure medication. Continue cardiac medication. Blood pressure has been a little lower than usual according to him. Monitor. Will get an EKG.
[2020-02-13] MEDS: SENNOSIDES 8.6 MG TABLET 17.2 MG PO (12:26)
[2020-02-13] MEDS: LACTATED RINGERS 1,000 ML 150 ML IV (12:26)
[2020-02-13] MEDS: DOCUSATE 100 MG CAPSULE PO (21:55)
--- NOTE | 2020-02-13 22:53 | PC.NURSE ---
hypotensive, asymptomatic. ambulated in hallways. dressing cdi. tolerated gen diet. passing gas.
--- NOTE | 2020-02-13 23:07 | PC.NURSE ---
2230 This REST ROOM MATRON went in the patient room to take vital signs at 1530 and asked the patient if his blood pressure normally runs low. The patient replied well you can get me excited if you want it higher. At another time, I left the room to get a warm blanket and the patient stated all my girlfriends sexton out in a hurry. Around 2229, I answered his call light and the IV was alarming and I said you're beeping in here! the patient replied yeah, I'm beeping, baby. I informed the coordinator, Tracey, the patient's evening shift RN, Brandy, and the nightshift REST ROOM MATRON coming on shift, Liudmila.
--- NOTE | 2020-02-13 23:55 | PC.NURSE ---
Patient is alert and oriented. Breath sounds diminished in right LL; RA sat is 97%. Patient working with I.S. HRR but bradycardic at 53 bpm. BP trends low with current reading of 97/51; evening RN reports MD is aware. Denies nausea. BT present; abdomen is distended and tender. Patient reports he has been passing flatus. Denies dysuria, frequency or urgency; voiding on toilet or in urinal. Able to move self in bed. Is out of bed with walker and 1 assist for safety. Dressings to abdominal lap/drain sites are CDI with bruising noted around umbilical dressing. Refused to wear SCD's stating he can't sleep with them on; educated on DVT prevention and ankle waving. Reports falls in past 3 months; fall risk score is high and bed alarm is activated.
[2020-02-14 05:00] VITALS: BP 111/60; PULSE 52; RESP 16; TEMP 36.2; O2SAT 96
[2020-02-14 05:14] LABS: Add Manual Diff / Slide Review NO; Basophils Absolute Auto 100 /uL (0-100); Basophils Percent Auto 0.7 % (0-2); Eosinophils Absolute Auto 300 /uL (0-450); Eosinophils Percent Auto 2.5 % (2-4); Hemoglobin 9.8 g/dL (13.5-17.5); Lymphocytes Absolute Auto 2000 /uL (1100-4500); Lymphocytes Percent Auto 16.7 % (25-40); Mean Corpuscular HGB Conc 33.8 % (30-36); Mean Corpuscular Hemoglobin 30.6 PG (26-34); Mean Corpuscular Volume 90.4 fL (80-100); Monocytes Absolute Auto 900 /uL (0-900); Monocytes Percent Auto 7.6 % (3-14); Neutrophils Absolute Auto 8800 /uL (1500-7000); Neutrophils Percent Auto 72.5 % (50-75); Platelet Count 210 X10^3/uL (150-400); Red Blood Cell Count 3.21 X10^6/uL (4.5-5.9); Red Cell Distribution Width 14.8 % (11.6-14.8); White Blood Cell Count 12.1 X10^3/uL (4.5-11.0)
[2020-02-14 05:27] LABS: Alanine Aminotransferase 20 IU/L (<50); Albumin 2.8 g/dL (3.5-5.0); Alkaline Phosphatase 52 U/L (38-126); Aspartate Aminotransferase 23 IU/L (17-59); BUN Creatinine Ratio 30.1 (6-22); Bilirubin Total 0.1 mg/dL (0.2-1.3); Blood Urea Nitrogen 22 mg/dL (9-20); Calcium 8.3 mg/dL (8.4-10.2); Carbon Dioxide 26 mmol/L (22-32); Chloride 104 mmol/L (98-107); Estimated Glomerular Filt Rate > 60.0 mL/min (>60); Globulin 2.7 g/dL (1.7-4.1); Glucose 80 mg/dL (80-110); HEMOLYSIS < 15 (0-50); Potassium 4.5 mmol/L (3.4-5.1); Sodium 135 mmol/L (137-145); Total Protein 5.5 g/dL (6.3-8.2)
[2020-02-14 05:41] LABS: Procalcitonin < 0.05 ng/mL (<0.5)
[2020-02-14] MEDS: ACETAMINOPHEN 325 MG TABLET 650 MG PO (05:57)
[2020-02-14] MEDS: SODIUM CHLORIDE 0.9% 250 ML 21 ML IV (05:58)
[2020-02-14] MEDS: PIPERACILLIN-TAZO 3.375 GM/50 ML FROZ.PIGGY IV (05:58)
[2020-02-14] MEDS: LEVOTHYROXINE 25 MCG TABLET PO (05:59)
[2020-02-14] MEDS: SODIUM CHLORIDE 0.9% FLUSH 10 ML IV ×2 (06:01→08:13)
[2020-02-14 08:00] VITALS: BP 107/55; PULSE 51; RESP 18; TEMP 36.6; O2SAT 97
[2020-02-14] MEDS: ENOXAPARIN 40 MG/0.4 ML SYRINGE SUBCUT (08:00)
[2020-02-14] MEDS: SENNOSIDES 8.6 MG TABLET 17.2 MG PO (08:00)
[2020-02-14] MEDS: DOCUSATE 100 MG CAPSULE PO (08:01)
[2020-02-14] MEDS: BICALUTAMIDE 50 MG TABLET PO (08:01)
[2020-02-14] MEDS: ROSUVASTATIN 10 MG TABLET 40 MG PO (08:02)
[2020-02-14] MEDS: MAGNESIUM HYDROXIDE 30 ML UDC PO (08:02)
[2020-02-14] MEDS: MAGNESIUM OXIDE 400 MG TABLET PO (08:02)
[2020-02-14 09:00] VITALS: O2SAT 96
[2020-02-14] MEDS: METOPROLOL IR 25 MG TABLET PO (09:43)
[2020-02-14 09:54] VITALS: BP 119/55; PULSE 62
--- NOTE | 2020-02-14 10:20 | PC.NURSE ---
Day shift note: Patient alert, oriented and very pleasant. Had BM this shift. Discharged home per MD order, discussed importance of F/U with Dr. Yang, new medications, and s/sx of infection. Patient verbalized understanding of instructions. Discharge home via private vehicle in stable condition.
--- NOTE | 2020-02-14 10:51 | PM.DS.1 ---
History of Present Illness History of Present Illness Chief complaint: stomach pain since friday Narrative: This is a 69-year-old man who presents for evaluation of acute cholecystitis. He had some vague abdominal pain beginning 4 days ago that is become progressively worsened focus in the epigastric and right upper quadrant area. He has some associated nausea and vomiting no fever. Aggravated by taking a deep breath. He was evaluated in the emergency room today where he underwent a CT of the abdomen pelvis demonstrates acute cholecystitis with cholelithiasis. White blood cell count on admission is 25, LFTs are unremarkable. Had a recent coronary artery bypass within the last several months which he has recovered from uneventfully and has good functional status. He is nonsmoker and not on anticoagulation. Denies any current chest pain shortness of breath. Discharge Providers Provider Date of admission: 02/11/20 09:13 Discharge Date: 02/14/20 Primary care physician: Albino Feng MD Discharge provider: Uriah Yang MD Summary Hospital Course Discharge Diagnosis: Acute cholecystitis Hospital Course: Patient underwent a laparoscopic cholecystectomy which demonstrated a significantly inflamed edematous gallbladder consistent with acute on chronic cholecystitis. Tolerated the operation well a right upper quadrant drain in the gallbladder bed was left during the operation. His postoperative course was slow. He had continued leukocytosis which peaked at 28 and then slowly down trended with IV antibiotics. His drain remained serous without bilious content was removed during the hospitalization. The date of discharge 02/13 he is afebrile white count is down to 12, tolerating a regular diet without nausea vomiting and ambulatory. Status at Discharge Cognitive/behavioral status at discharge: oriented Functional status at discharge: independent ambulation Time Spent with Patient Time spent: Greater than 30 minutes Exam Vital Signs (past 8 hours): - 02/14/20 05:00 02/14/20 08:00 02/14/20 09:00 Temperature 97.2 F L 97.9 F Pulse Rate 52 L 51 L Respiratory Rate 16 18 Blood Pressure 111/60 107/55 L Pulse Oximetry 96 97 96 02/14/20 09:54 Temperature Pulse Rate 62 Respiratory Rate Blood Pressure 119/55 L Pulse Oximetry Oxygen Delivery Method Room Air Oxygen Flow Rate 0 Narrative Exam Narrative: General elderly man alert oriented no acute distress Abdomen soft incisions clean dry intact. Appropriately tender to palpation Objective Labs Result Diagrams: 02/14/20 05:00 02/14/20 05:00 Labs: Laboratory Results - last 24 hr 02/14/20 02/14/20 02/14/20 05:00 05:00 05:00 WBC 12.1 H RBC 3.21 L Hgb 9.8 L Hct 29.0 L MCV 90.4 MCH 30.6 MCHC 33.8 RDW 14.8 Plt Count 210 Neut % (Auto) 72.5 Lymph % (Auto) 16.7 L [place] % (Auto) 7.6 Eos % (Auto) 2.5 Baso % (Auto) 0.7 Neut # (Auto) 8800 H Lymph # (Auto) 2000 [place] # (Auto) 900 Eos # (Auto) 300 Baso # (Auto) 100 Sodium 135 L Potassium 4.5 Chloride 104 Carbon Dioxide 26 BUN 22 H Creatinine 0.73 Estimated GFR > 60.0 BUN/Creatinine Ratio 30.1 H Glucose 80 Calcium 8.3 L Total Bilirubin 0.1 L AST 23 ALT 20 Alkaline Phosphatase 52 Total Protein 5.5 L Albumin 2.8 L Globulin 2.7 Albumin/Globulin Ratio 1.0 Procalcitonin < 0.05 Discharge Plan Discharge Plan Patient Disposition: Home Discharge orders & Medications Prescriptions: New docusate sodium [Colace] 100 mg capsule 100 mg PO BID Qty: 30 RF: 0 oxycodone 5 mg tablet 5 mg PO Q6H PRN (Reason: pain) Qty: 30 RF: 0 acetaminophen [Tylenol] 325 mg capsule 650 mg PO QID PRN (Reason: pain) Qty: 60 RF: 0 Continued losartan 50 MG tablet 50 mg PO DAILY Qty: 0 RF: 0 magnesium oxide 400 MG tablet 400 mg PO DAILY Qty: 0 RF: 0 Calcium 1 tab PO BID RF: 0 Vitamin C 1 tab PO DAILY RF: 0 Vitamin D3 1 cap PO DAILY RF: 0 bicalutamide 50 mg Tablet 50 mg PO Q OTHER DAY RF: 0 rosuvastatin 40 mg Tablet 40 mg PO DAILY RF: 0 metoprolol tartrate 25 mg Tablet 25 mg PO BID RF: 0 hydrocodone-acetaminophen 5-325 mg Tablet 1 tab PO Q4H PRN (Reason: Pain (Scale Score 4-6)) RF: 0 levothyroxine 25 mcg Tablet 25 mcg PO DAILY RF: 0 Follow up/Referrals: Albino Feng MD [Primary Care Provider] - Uriah Yang MD [Physician] - Diet/Activity/Treatments Diet: Low-fat Activity: No lifting >20 lbs x 4 weeks. Walking only for exercise for [address] while taking narcotics. Skin/Wound/Dressing Care Report to your healthcare provider any signs of infection, such as:: chills, fever, increased pain and unusual drainage Visit Report/Discharge Packet Instructions: DI for Cholecystectomy Visit Report Forms: Patient Portal/API, Stroke Signs & Symptoms Discharge Data Primary Care Provider: Albino Feng Attending Provider: Uriah Yang Admit Date/Time: 02/11/20 09:13
== END 2020-02-14 10:56 | disposition home or self-care (01) | DRG 419 ==
LOC: ED 08:44 → AC 09:42
PROVIDERS: Specialist; Admitting Provider Surgery; Emergency Provider Emergency Medicine; PCP Family Medicine; Referring Provider Emergency Medicine; Visit Provider Surgery
PROC: 0FT44ZZ Resection of Gallbladder, Percutaneous Endoscopic Approach (ICD-10-PCS; CPT 47562; principal; 2020-02-11 10:30)
DX: K80.00 Calculus of gallbladder with acute cholecystitis without obstruction (principal); I10 Essential (primary) hypertension; I25.10 Atherosclerotic heart disease of native coronary artery without angina pectoris; D72.829 Elevated white blood cell count, unspecified; Z95.1 Presence of aortocoronary bypass graft; Z11.59 Encounter for screening for other viral diseases
CPT/HCPCS: 36415; 36592; 47562; 71260; 74022; 74177; 76705; 80053; 81003; 81015; 83605; 83690; 84145; 85025; 87635; 93005; 94762; 96361; 96365; 96375; 96376; 99222; 99285; G0378; J0330; J1100; J1170; J1650; J2405; J2543; J2704; J3010; Q9967

== ENCOUNTER → 2020-04-12 08:30 | Outpatient (CLI) | payer MEDICARE, OTHER, SELFPAY ==
[2020-02-11 14:00] VITALS: BMI 27.3
[2020-04-12 08:45] LABS: Bacteria Urine None Seen; RBC Urine None Seen (0-5/HPF)
[2020-04-12 10:06] LABS: Add Manual Diff / Slide Review NO; Appearance Urine UA CLEAR; Basophils Absolute Auto 0 /uL (0-100); Basophils Percent Auto 0.3 % (0-2); Bilirubin Urine UA NEGATIVE (NEGATIVE); Color Urine UA YELLOW; Eosinophils Absolute Auto 100 /uL (0-450); Glucose Urine UA NEGATIVE (Negative); Hematocrit 35.9 % (41-53); Ketones Urine UA NEGATIVE (NEGATIVE); Leukocyte Esterase Urine UA 1+ (NEGATIVE); Lymphocytes Absolute Auto 1200 /uL (1100-4500); Lymphocytes Percent Auto 8.9 % (25-40); Mean Corpuscular HGB Conc 33.5 % (30-36); Mean Corpuscular Hemoglobin 30.6 PG (26-34); Mean Corpuscular Volume 91.4 fL (80-100); Monocytes Absolute Auto 900 /uL (0-900); Monocytes Percent Auto 6.3 % (3-14); Neutrophils Absolute Auto 11700 /uL (1500-7000); Neutrophils Percent Auto 83.5 % (50-75); Nitrite Urine UA NEGATIVE (Negative); Occult Blood Urine UA TRACE-LYSED (Negative); Platelet Count 212 X10^3/uL (150-400); Protein Urine UA TRACE (Negative); Red Blood Cell Count 3.93 X10^6/uL (4.5-5.9); Red Cell Distribution Width 14.7 % (11.6-14.8); Specific Gravity Urine UA 1.025 (1.000-1.035); Urobilinogen Urine UA 0.2 E.U./dL (0.2)
[2020-04-12 10:15] LABS: Alanine Aminotransferase 16 IU/L (<50); Albumin Globulin Ratio 1.4 (1.0-2.8); Alkaline Phosphatase 58 U/L (38-126); Aspartate Aminotransferase 24 IU/L (17-59); BUN Creatinine Ratio 21.1 (6-22); Bilirubin Total 0.4 mg/dL (0.2-1.3); Blood Urea Nitrogen 16 mg/dL (9-20); Calcium 8.9 mg/dL (8.4-10.2); Carbon Dioxide 27 mmol/L (22-32); Chloride 103 mmol/L (98-107); Cholesterol 101 mg/dL (140-199); Estimated Glomerular Filt Rate > 60.0 mL/min (>60); Globulin 2.9 g/dL (1.7-4.1); Glucose 77 mg/dL (80-110); HDL Cholesterol 47 mg/dL (40-60); HEMOLYSIS < 15 (0-50); LDL Cholesterol Calculated 30 mg/dL (<100); Potassium 4.1 mmol/L (3.4-5.1); Sodium 136 mmol/L (137-145); Total Protein 6.9 g/dL (6.3-8.2); Triglycerides 121 mg/dL (35-150)
[2020-04-12 10:23] LABS: Squamous Epithelial Cell Urine 5-10 /HPF (0-5/HPF); WBC Urine 5-10/HPF (0-5/HPF)
[2020-04-12 10:24] LABS: Granular Casts Urine 0-1/LPF; Mucus Urine 1+ (Negative)
[2020-04-12 10:34] LABS: HEMOLYSIS < 15 (0-50); Iron 92 ug/dL (49-181)
[2020-04-12 10:46] LABS: Percent Iron Saturation 36 % (20-50); Prostate Specific Antigen < 0.064 ng/mL (0.10-4.00); Total Iron Binding Capacity 257 ug/dL (261-462); Transferrin 189 mg/dL (206-381)
[2020-04-12 11:07] LABS: TSH w/ Reflex to FT4 6.31 uIU/mL (0.47-4.68)
[2020-04-12 11:32] LABS: Free T4, Direct Thyroxine 1.04 ng/dL (0.78-2.19)
== END ==
PROVIDERS: PCP Family Medicine; Referring Provider Family Medicine; Visit Provider Family Medicine
DX: D64.9 Anemia, unspecified (principal)
CPT/HCPCS: 36415; 80053; 80061; 81001; 83540; 83550; 84153; 84439; 84443; 85025; 87086

== ENCOUNTER → 2020-05-20 09:50 | Outpatient (CLI) | payer MEDICARE, OTHER, SELFPAY ==
[2020-02-11 14:00] VITALS: BMI 27.3
[2020-05-22 09:28] LABS: COVID19 Sendout Not Detected (Not Detect)
== END ==
PROVIDERS: PCP Family Medicine; Visit Provider Nurse Practitioner
DX: Z11.59 Encounter for screening for other viral diseases (principal)
CPT/HCPCS: 87635

== ENCOUNTER → 2020-06-05 09:55 | Outpatient (CLI) | payer MEDICARE, OTHER, SELFPAY ==
[2020-02-11 14:00] VITALS: BMI 27.3
[2020-06-05 11:43] LABS: Free T4, Direct Thyroxine 0.96 ng/dL (0.78-2.19)
[2020-06-05 11:56] LABS: Thyroid Stimulating Hormone 0.284 uIU/mL (0.47-4.68)
== END ==
PROVIDERS: Family Provider Physician Assistant Surgical; PCP Family Medicine; Referring Provider Family Medicine; Visit Provider Family Medicine
DX: E03.9 Hypothyroidism, unspecified (principal)
CPT/HCPCS: 36415; 84439; 84443

== ENCOUNTER → 2020-06-27 10:15 | Outpatient (CLI) | payer MEDICARE, OTHER, SELFPAY ==
[2020-02-11 14:00] VITALS: BMI 27.3
[2020-06-27 12:37] LABS: Cholesterol 93 mg/dL (140-199); Glucose 89 mg/dL (80-110); HDL Cholesterol 39 mg/dL (40-60); LDL Cholesterol Calculated 33 mg/dL (<100); Triglycerides 105 mg/dL (35-150)
[2020-06-27 13:03] LABS: Prostate Specific Antigen < 0.064 ng/mL (0.10-4.00)
== END ==
PROVIDERS: Family Provider Physician Assistant Surgical; PCP Family Medicine; Referring Provider Family Medicine; Visit Provider Family Medicine
DX: R97.20 Elevated prostate specific antigen [PSA] (principal); I25.10 Atherosclerotic heart disease of native coronary artery without angina pectoris
CPT/HCPCS: 36415; 80061; 82947; 84153

== ENCOUNTER → 2020-08-15 13:03 | Outpatient (CLI) | payer MEDICARE, OTHER, SELFPAY ==
[2020-02-11 14:00] VITALS: BMI 27.3
[2020-08-15 14:13] LABS: Free T4, Direct Thyroxine 2.69 ng/dL (0.78-2.19)
[2020-08-15 14:30] LABS: Thyroid Stimulating Hormone < 0.015 uIU/mL (0.47-4.68)
== END ==
PROVIDERS: Family Provider Physician Assistant Surgical; PCP Family Medicine; Referring Provider Family Medicine; Visit Provider Family Medicine
DX: E03.9 Hypothyroidism, unspecified (principal)
CPT/HCPCS: 36415; 84439; 84443

== ENCOUNTER 2020-09-07 21:33 | Emergency (ER) | payer MEDICARE, OTHER, SELFPAY ==
[2020-02-11 14:00] VITALS: BMI 27.3
[2020-09-07] VITALS (16 sets, daily range): BP systolic 91–143; BP diastolic 55–71; PULSE 80–128; RESP 12–29; TEMP 36.9; O2SAT 94–98; BMI 27.1
--- NOTE | 2020-09-07 21:40 | ED.CHESTPAIN ---
HPI - Chest Pain General Chief Complaint: Chest Pain Stated Complaint: Chest Pain Time Seen by Provider: 09/07/20 21:37 Source: patient and family Mode of arrival: Ambulatory Limitations: no limitations History of Present Illness HPI narrative: 70-year-old male nonsmoker with history of AFib, hypertension, hyperlipidemia, coronary artery disease presents with his in the chief complaint of a sudden onset chest pain and pressure that started about 130 this afternoon. He denies any worsening with exertion, nausea, vomiting, shortness of breath. He denies any unexplained diaphoresis. He denies any obvious provocation, palliation or radiation of his discomfort. states that he has had multiple episodes over the past few weeks of chest pressure and him stopping to catch his breath. He states the last time he knows he was in atrial fibrillation was after his coronary artery bypass graft about a year ago. He is no longer anticoagulated. He denies any new medications, change in diet or other. MD complaint: chest pain Onset (ago): hour(s) Duration: constant Onset: during rest Pain location: substernal Severity: moderate Quality: tightness and heaviness Pain radiation: none Relieving factors: nothing Exacerbating factors: nothing Associated symptoms: palpitations Treatments prior to arrival chest pain: none Related Data Home Medications Medication Instructions Recorded Confirmed losartan 50 mg PO DAILY #0 10/16/17 03/08/20 magnesium oxide 400 mg PO DAILY #0 10/16/17 03/08/20 Calcium 1 tab PO BID 05/22/18 03/08/20 Vitamin C 1 tab PO DAILY 05/22/18 03/08/20 Vitamin D3 1 cap PO DAILY 05/22/18 03/08/20 bicalutamide 50 mg PO Q OTHER DAY 02/11/20 03/08/20 hydrocodone-acetaminophen 1 tab PO Q4H PRN 02/11/20 03/08/20 metoprolol tartrate 25 mg PO BID 02/11/20 03/08/20 rosuvastatin 40 mg PO DAILY 02/11/20 03/08/20 levothyroxine 25 mcg PO DAILY 02/12/20 03/08/20 Previous Rx's Medication Instructions Recorded acetaminophen [Tylenol] 650 mg PO QID PRN #60 cap 02/14/20 docusate sodium [Colace] 100 mg PO BID #30 cap 06/22/20 oxycodone 5 mg PO Q6H PRN #30 tab 02/14/20 apixaban [Eliquis] 5 mg PO BID #30 tab 09/07/20 Allergies Allergy/AdvReac Type Severity Reaction Status Date / Time caffeine [CAFFEINE] AdvReac Unknown HEADACHE, Verified 03/08/20 11:14 VOMITING glutamine [GLUTAMINE] AdvReac Unknown HEADACHE, Verified 03/08/20 11:14 VOMITING Nitrate Analogues AdvReac Unknown HEADACHE, Verified 03/08/20 11:14 [NITRATE ANALOGUES] VOMITING Sulfa (Sulfonamide AdvReac Unknown VOMITING, Verified 03/08/20 11:14 Antibiotics) RACING [SULFA (SULFONAMIDE HEART ANTIBIOTICS)] cheese AdvReac Headache Verified 03/08/20 11:14 monosodium glutamate AdvReac Vomiting Verified 03/08/20 11:14 Review of Systems Constitutional Constitutional: Denies chills, Denies fatigue, Denies fever(s), Denies frequent falls, Denies lethargy and Denies weakness Eyes Eyes: Denies change in vision, Denies eye discharge, Denies irritation and Denies loss of vision ENT Ears, Nose, Mouth, and Throat: Denies change in voice, Denies dizziness, Denies neck pain, Denies sore throat and Denies throat swelling Cardiovascular Cardiovascular: Reports chest pain, Denies irregular heart rhythm, Denies lightheadedness, Denies palpitations, Denies dyspnea, Denies dyspnea on exertion and Denies orthopnea Respiratory Respiratory: Denies cough, Denies dyspnea, Denies dyspnea on exertion and Denies wheezing Gastrointestinal Gastrointestinal: Denies abdominal pain, Denies change in bowel habits, Denies diarrhea, Denies nausea and Denies vomiting Musculoskeletal Musculoskeletal: Denies neck pain and Denies numbness Integumentary/Breasts Skin/Breast: Denies pruritus, Denies erythema, Denies rash and Denies wounds Neurologic Neurologic: Denies behavioral changes, Denies confusion, Denies dizziness, Denies frequent falls, Denies loss of vision, Denies numbness and Denies weakness Psychiatric Psychiatric: Denies anxiety, Denies behavioral changes, Denies confusion, Denies depression, Denies homicidal ideation and Denies suicidal ideation Endocrine Endocrine: Denies fatigue, Denies flushing and Denies palpitations Hematologic/Lymphatic Hematologic/Lymphatic: Denies easy bruising Allergic/Immunologic Allergic/Immunologic: Denies urticaria, Denies throat swelling and Denies wheezing Patient History Medical History Coronary artery disease Surgical History S/P CABG (coronary artery bypass graft) Social History household members: spouse and family Smoking Status: Never smoker Smoking Status: Never smoker alcohol intake frequency: holidays/special occasions only Substance Use Type: does not use Exam Narrative Exam Narrative: GENERAL: [70] year old patient appears stated age. Well-nourished, well-developed patient, in mild distress. HEAD: Atraumatic. Normocephalic. EYES: Pupils equal round and reactive. Extraocular motions intact. No scleral icterus. No injection or drainage. ENT: Nose without bleeding, purulent drainage. Throat without erythema, tonsillar hypertrophy or exudate. Airway patent. NECK: Trachea midline. Non tender CARDIOVASCULAR: Tachycardic and irregular rhythm without murmurs, gallops, or rubs. RESPIRATORY: Clear to auscultation. Breath sounds equal bilaterally. No wheezes, rales, or rhonchi. GASTROINTESTINAL: Abdomen soft, non-tender, nondistended. EXTREMITIES: No edema or joint tenderness. BACK: Nontender without deformity or crepitance. No flank tenderness. NEURO: AOx3. SKIN: No rash or erythema of visible areas Initial Vital Signs Initial Vital Signs: Vital Signs Temperature 98.5 F 09/07/20 21:40 Pulse Rate 128 H 09/07/20 21:40 Respiratory Rate 22 09/07/20 21:40 Blood Pressure 143/71 H 09/07/20 21:40 Pulse Oximetry 98 09/07/20 21:40 Course Orders Ordered: ED Orders 09/07/20 21:45 Complete Blood Count AUTO DIFF Stat Comprehensive Metabolic Panel Stat Magnesium Stat NT-proBNP (BNP-Adult 18+) Stat Discontinued Medications Apixaban (Apixaban 5 Mg Tablet) 5 mg PO NOW ONE Stop: 09/07/20 22:33 Last Admin: 09/07/20 22:56 Dose: 5 mg Documented by: EULALIO Diltiazem HCl (Diltiazem 5 Mg/Ml Sdv) 10 mg IV NOW ONE Stop: 09/07/20 21:53 Last Admin: 09/07/20 21:56 Dose: 10 mg Documented by: EULALIO Reevaluation(s) Reevaluation #1: patient with complete resolution of symptoms after Cardizem given Consultations Consultation #1: call to cardio at [facility] ([place] [place] for [place]. Recommends increasing Metoprolol to 50mg BID, adding Eliquis, and close follow up. Vital Signs Vital signs: Vital Signs - 8 hr 09/07/20 21:40 09/07/20 21:53 09/07/20 21:56 Temperature 98.5 F Pulse Rate 128 H 117 H 128 H Respiratory Rate 22 24 Blood Pressure 143/71 H 143/71 H Pulse Oximetry 98 98 09/07/20 22:00 09/07/20 22:03 09/07/20 22:05 Temperature Pulse Rate 119 H 102 H 87 Respiratory Rate 12 29 H 20 Blood Pressure 96/63 91/62 107/55 L Pulse Oximetry 98 97 98 09/07/20 22:13 09/07/20 22:15 09/07/20 22:20 Temperature Pulse Rate 84 87 80 Respiratory Rate 14 15 Blood Pressure 124/62 113/59 L 113/57 L Pulse Oximetry 97 96 96 09/07/20 22:25 09/07/20 22:30 09/07/20 22:35 Temperature Pulse Rate 88 96 H 96 H Respiratory Rate 15 21 15 Blood Pressure 103/59 L 118/64 109/65 Pulse Oximetry 95 95 95 09/07/20 22:40 09/07/20 22:45 09/07/20 22:50 Temperature Pulse Rate 93 H 102 H 87 Respiratory Rate 16 17 18 Blood Pressure 112/68 117/58 L 102/57 L Pulse Oximetry 94 96 95 09/07/20 23:00 Temperature Pulse Rate 103 H Respiratory Rate 12 Blood Pressure 138/63 Pulse Oximetry 96 MDM - Chest Pain Lab Data Result diagrams: 09/07/20 21:45 09/07/20 21:45 Labs: Lab Results 09/07/20 09/07/20 Range/Units 21:45 21:45 WBC 7.2 (4.5-11.0) X10^3/uL RBC 4.25 L (4.5-5.9) X10^6/uL Hgb 12.9 L (13.5-17.5) g/dL Hct 37.8 L (41-53) % MCV 88.9 (80-100) fL MCH 30.4 (26-34) PG MCHC 34.2 (30-36) % RDW 12.8 (11.6-14.8) % Plt Count 225 (150-400) X10^3/uL Neut % (Auto) 67.5 (50-75) % Lymph % (Auto) 17.5 L (25-40) % [place] % (Auto) 12.1 (3-14) % Eos % (Auto) 2.3 (2-4) % Baso % (Auto) 0.6 (0-2) % Neut # (Auto) 4800 (9139-5039) /uL Lymph # (Auto) 1300 (9165-1476) /uL [place] # (Auto) 900 (0-900) /uL Eos # (Auto) 200 (0-450) /uL Baso # (Auto) 0 (0-100) /uL Sodium 136 L (137-145) mmol/L Potassium 4.3 (3.4-5.1) mmol/L Chloride 105 (98-107) mmol/L Carbon Dioxide 27 (22-32) mmol/L BUN 19 (9-20) mg/dL Creatinine 0.75 (0.66-1.25) mg/dL Estimated GFR > 60.0 (>60) mL/min BUN/Creatinine Ratio 25.3 H (6-22) Glucose 99 (80-110) mg/dL Calcium 9.1 (8.4-10.2) mg/dL Magnesium 1.8 (1.6-2.3) mg/dL Total Bilirubin 0.3 (0.2-1.3) mg/dL AST 21 (17-59) IU/L ALT 18 (<50) IU/L Alkaline Phosphatase 66 (38-126) U/L NT-Pro-B Natriuret Pep 3670 H (<125) pg/mL Total Protein 7.1 (6.3-8.2) g/dL Albumin 4.1 (3.5-5.0) g/dL Globulin 3.0 (1.7-4.1) g/dL Albumin/Globulin Ratio 1.4 (1.0-2.8) Urine Dip Bedside Urine Glucose Negative Bedside Urine Bilirubin - Negative Bedside Urine Ketone - Negative Urine Specific [place] 1.015 Bedside Urine Occult Blood +/- Bedside Urine pH 6.5 Bedside Urine Protein - Negative Bedside Urine Urobilinogen - Negative Bedside Urine Nitrite - Negative Bedside Urine Leukocytes - Negative Esterase MDM Narrative Medical decision making narrative: Patient presents with chest pain and is in Rapid AFib. Not anticoagulated, likely multiple episodes in the past few weeks and improvement with rate control, patient is not a good candidate for cardioversion. Ischemic heart disease considered, but lack of exertional symptoms, ischemic change on EKG and complete resolution with rate control. Return precautions given and questions answered to his apparent satisfaction. Discharge Plan Departure Patient Disposition: Home Clinical Impression: Atrial fibrillation with rapid ventricular response Instructions: DI for Atrial Fibrillation Activity Restrictions/Additional Instructions: *You have been diagnosed with [chest pain due to rapid atrial fibrillation] *What to do: *Take medications as directed: Please increase Metoprolol to 50mg twice daily and get the prescription for the blood thinner (Eliquis) tomorrow at [facility] *Follow up with your primary living coach call for an appointment. Let them know you were seen in the Emergency Department and that we ask that you be seen in follow up *Return to ER if you should have any new, worsening or concerning symptoms Prescriptions: New Eliquis 5 mg tablet 5 mg PO BID Qty: 30 RF: 0 No Action losartan 50 MG tablet 50 mg PO DAILY Qty: 0 RF: 0 magnesium oxide 400 MG tablet 400 mg PO DAILY Qty: 0 RF: 0 Calcium 1 tab PO BID RF: 0 Vitamin C 1 tab PO DAILY RF: 0 Vitamin D3 1 cap PO DAILY RF: 0 bicalutamide 50 mg Tablet 50 mg PO Q OTHER DAY RF: 0 rosuvastatin 40 mg Tablet 40 mg PO DAILY RF: 0 metoprolol tartrate 25 mg Tablet 25 mg PO BID RF: 0 hydrocodone-acetaminophen 5-325 mg Tablet 1 tab PO Q4H PRN (Reason: Pain (Scale Score 4-6)) RF: 0 levothyroxine 25 mcg Tablet 25 mcg PO DAILY RF: 0 docusate sodium [Colace] 100 mg capsule 100 mg PO BID Qty: 30 RF: 0 oxycodone 5 mg tablet 5 mg PO Q6H PRN (Reason: pain) Qty: 30 RF: 0 acetaminophen [Tylenol] 325 mg capsule 650 mg PO QID PRN (Reason: pain) Qty: 60 RF: 0 Referrals: Georges Feng MD [Primary Care Provider] - Solomon Roa MD [Non-Staff] -
[2020-09-07 21:55] LABS: Add Manual Diff / Slide Review NO; Basophils Absolute Auto 0 /uL (0-100); Basophils Percent Auto 0.6 % (0-2); Eosinophils Absolute Auto 200 /uL (0-450); Eosinophils Percent Auto 2.3 % (2-4); Hematocrit 37.8 % (41-53); Hemoglobin 12.9 g/dL (13.5-17.5); Lymphocytes Absolute Auto 1300 /uL (1100-4500); Lymphocytes Percent Auto 17.5 % (25-40); Mean Corpuscular HGB Conc 34.2 % (30-36); Mean Corpuscular Hemoglobin 30.4 PG (26-34); Mean Corpuscular Volume 88.9 fL (80-100); Monocytes Absolute Auto 900 /uL (0-900); Monocytes Percent Auto 12.1 % (3-14); Neutrophils Absolute Auto 4800 /uL (1500-7000); Neutrophils Percent Auto 67.5 % (50-75); Platelet Count 225 X10^3/uL (150-400); Red Blood Cell Count 4.25 X10^6/uL (4.5-5.9); Red Cell Distribution Width 12.8 % (11.6-14.8); White Blood Cell Count 7.2 X10^3/uL (4.5-11.0)
[2020-09-07] MEDS: dilTIAZem 5 MG/ML SDV 10 MG IV (21:56)
[2020-09-07 22:05] LABS: Alanine Aminotransferase 18 IU/L (<50); Albumin 4.1 g/dL (3.5-5.0); Albumin Globulin Ratio 1.4 (1.0-2.8); Alkaline Phosphatase 66 U/L (38-126); Aspartate Aminotransferase 21 IU/L (17-59); BUN Creatinine Ratio 25.3 (6-22); Bilirubin Total 0.3 mg/dL (0.2-1.3); Blood Urea Nitrogen 19 mg/dL (9-20); Calcium 9.1 mg/dL (8.4-10.2); Carbon Dioxide 27 mmol/L (22-32); Chloride 105 mmol/L (98-107); Estimated Glomerular Filt Rate > 60.0 mL/min (>60); Glucose 99 mg/dL (80-110); HEMOLYSIS 24 (0-50); Magnesium 1.8 mg/dL (1.6-2.3); Potassium 4.3 mmol/L (3.4-5.1); Sodium 136 mmol/L (137-145); Total Protein 7.1 g/dL (6.3-8.2)
[2020-09-07 22:14] LABS: NT-proBNP (BNP-Adult 18+) 3670 pg/mL (<125)
[2020-09-07] MEDS: APIXABAN 5 MG TABLET PO (22:56)
== END 2020-09-07 23:13 | disposition home or self-care (01) ==
PROVIDERS: Emergency Provider Emergency Medicine; Family Provider Physician Assistant Surgical; PCP Family Medicine
DX: I48.91 Unspecified atrial fibrillation (principal); I10 Essential (primary) hypertension; E78.5 Hyperlipidemia, unspecified; R00.2 Palpitations; I25.10 Atherosclerotic heart disease of native coronary artery without angina pectoris
CPT/HCPCS: 36415; 80053; 81003; 83735; 83880; 85025; 93005; 93010; 96374; 99283; 99284

== ENCOUNTER 2020-09-28 08:30 | Outpatient (RCR) | payer MEDICARE, OTHER, SELFPAY ==
[2020-02-11 14:00] VITALS: BMI 27.3
== END 2020-09-28 10:30 ==
LOC: CAR 08:30
PROVIDERS: Family Provider Physician Assistant Surgical; PCP Family Medicine; Referring Provider Physician Assistant Surgical; Visit Provider Physician Assistant Surgical
DX: Z95.1 Presence of aortocoronary bypass graft (principal)
CPT/HCPCS: 93798

== ENCOUNTER → 2020-10-09 16:05 | Outpatient (CLI) | payer MEDICARE, OTHER, SELFPAY ==
[2020-02-11 14:00] VITALS: BMI 27.3
--- NOTE | 2020-10-09 | DI.US.S_ITS ---
PROCEDURE: US RENAL COMPLETE INDICATIONS: Personal history of urinary calculi TECHNIQUE: Real-time scanning was performed of the kidneys and bladder, with image documentation. COMPARISON: [facility], CT, CT CHEST ABD PEL W CON, 02/11/2020, 6:38. [facility], US, RENAL COMPLETE, 07/11/2015, 10:35. FINDINGS: Kidneys: Kidneys are normal in size. Right kidney measures 12.4 cm long; left kidney measures 12.6 cm long. Right renal cortical thickness is 1.6 cm; left renal cortical thickness is 1.5 cm. Renal cortical echotexture is normal. No nephrolithiasis. No suspicious solid mass lesions. At the inferior pole of the right kidney, there is an exophytic cyst that measures up to 5.1 cm. Along the medial aspect of the left kidney, there is a 2.7 cm simple appearing cyst seen. Moderate left-sided hydronephrosis is seen, which persists postvoid. Bladder: Pre-void bladder volume is 57 mL. Post-void residual is 3 mL. Pre-void images demonstrate no intraluminal masses or stones. On pre-void images, both ureteral jets are noted with color Doppler interrogation. (Of note, ureteral jets may not be detectable in up to 25% of cases due to insufficient differences in specific gravity between ureteral and bladder urine). Miscellaneous: No free pelvic fluid. The prostate measures 4.3 x 4 x 5.4 cm. IMPRESSION: Moderate left-sided hydronephrosis is seen, which persists postvoid. No shadowing stones can be seen on this ultrasound study. Bilateral simple appearing renal cysts are seen. Dictated by: Hernandez Arrieta M.D. on 10/09/2020 at 16:47 Approved by: Hernandez Arrieta M.D. on 10/09/2020 at 16:50
== END ==
PROVIDERS: Family Provider Physician Assistant Surgical; PCP Family Medicine; Referring Provider Urology; Visit Provider Urology
DX: N13.30 Unspecified hydronephrosis (principal); N28.1 Cyst of kidney, acquired; Z87.442 Personal history of urinary calculi
CPT/HCPCS: 76770

== ENCOUNTER → 2020-10-11 12:02 | Outpatient (CLI) | payer MEDICARE, OTHER, SELFPAY ==
[2020-02-11 14:00] VITALS: BMI 27.3
[2020-10-11 13:23] LABS: Free T4, Direct Thyroxine 0.99 ng/dL (0.78-2.19)
[2020-10-11 13:41] LABS: Thyroid Stimulating Hormone < 0.015 uIU/mL (0.47-4.68)
== END ==
PROVIDERS: Family Provider Physician Assistant Surgical; PCP Family Medicine; Referring Provider Family Medicine; Visit Provider Family Medicine
DX: E03.9 Hypothyroidism, unspecified (principal)
CPT/HCPCS: 36415; 84439; 84443

== ENCOUNTER → 2021-01-16 07:57 | Outpatient (CLI) | payer MEDICARE, OTHER, SELFPAY ==
[2020-02-11 14:00] VITALS: BMI 27.3
[2021-01-16 08:40] LABS: Add Manual Diff / Slide Review NO; Basophils Absolute Auto 0 /uL (0-100); Basophils Percent Auto 0.7 % (0-2); Eosinophils Absolute Auto 200 /uL (0-450); Eosinophils Percent Auto 2.2 % (2-4); Hematocrit 38.1 % (41-53); Hemoglobin 12.8 g/dL (13.5-17.5); Lymphocytes Absolute Auto 1600 /uL (1100-4500); Lymphocytes Percent Auto 22.7 % (25-40); Mean Corpuscular HGB Conc 33.5 % (30-36); Mean Corpuscular Hemoglobin 30.3 PG (26-34); Mean Corpuscular Volume 90.4 fL (80-100); Monocytes Absolute Auto 600 /uL (0-900); Monocytes Percent Auto 9.1 % (3-14); Neutrophils Absolute Auto 4500 /uL (1500-7000); Neutrophils Percent Auto 65.3 % (50-75); Platelet Count 178 X10^3/uL (150-400); Red Blood Cell Count 4.22 X10^6/uL (4.5-5.9); Red Cell Distribution Width 15.5 % (11.6-14.8); White Blood Cell Count 6.9 X10^3/uL (4.5-11.0)
[2021-01-16 08:50] LABS: HEMOLYSIS < 15 (0-50)
[2021-01-16 08:57] LABS: Alanine Aminotransferase 18 IU/L (<50); Albumin 4.1 g/dL (3.5-5.0); Albumin Globulin Ratio 1.6 (1.0-2.8); Alkaline Phosphatase 64 U/L (38-126); Aspartate Aminotransferase 25 IU/L (17-59); BUN Creatinine Ratio 30.1 (6-22); Bilirubin Total 0.2 mg/dL (0.2-1.3); Blood Urea Nitrogen 25 mg/dL (9-20); Calcium 9.4 mg/dL (8.4-10.2); Carbon Dioxide 27 mmol/L (22-32); Chloride 106 mmol/L (98-107); Cholesterol 105 mg/dL (140-199); Estimated Glomerular Filt Rate > 60.0 mL/min (>60); Globulin 2.5 g/dL (1.7-4.1); Glucose 91 mg/dL (80-110); HDL Cholesterol 51 mg/dL (40-60); LDL Cholesterol Calculated 39 mg/dL (<100); Sodium 139 mmol/L (137-145); Total Protein 6.6 g/dL (6.3-8.2); Triglycerides 73 mg/dL (35-150)
[2021-01-16 09:05] LABS: Potassium 4.3 mmol/L (3.4-5.1)
[2021-01-16 09:12] LABS: Free T4, Direct Thyroxine 0.82 ng/dL (0.78-2.19)
[2021-01-16 09:26] LABS: Thyroid Stimulating Hormone 8.39 uIU/mL (0.47-4.68)
[2021-01-18 05:09] LABS: Testosterone 139 ng/dL (71.8-623)
== END ==
PROVIDERS: Family Provider Physician Assistant Surgical; PCP Family Medicine; Referring Provider Family Medicine; Visit Provider Family Medicine
DX: E03.9 Hypothyroidism, unspecified (principal); R97.20 Elevated prostate specific antigen [PSA]; I48.0 Paroxysmal atrial fibrillation; E78.5 Hyperlipidemia, unspecified
CPT/HCPCS: 36415; 80053; 80061; 84153; 84403; 84439; 84443; 85025

== ENCOUNTER → 2021-07-05 09:19 | Outpatient (CLI) | payer MEDICARE, OTHER, SELFPAY ==
[2020-02-11 14:00] VITALS: BMI 27.3
--- NOTE | 2021-07-05 09:23 | DI.US.S_ITS ---
PROCEDURE: US RENAL COMPLETE INDICATIONS: HISTORY OF NEPHROLITHIASIS TECHNIQUE: Real-time scanning was performed of the kidneys and bladder, with image documentation. COMPARISON: [facility], CT, CT CHEST ABD PEL W CON, 02/11/2020, 6:38. Located [facility], US, US ABDOMEN LIMITED, 02/11/2020, 8:07. Located Within [facility], US, US RENAL COMPLETE, 10/09/2020, 16:36. FINDINGS: Kidneys: Kidneys are normal in size. Right kidney measures 10.5 cm long; left kidney measures 11.6 cm long. Right renal cortical thickness is 1.3 cm; left renal cortical thickness is 1.2 cm. Renal cortical echotexture is normal. No nephrolithiasis. No suspicious solid mass lesions. Numerous left kidney peripelvic cysts are seen, which makes evaluation for superimposed hydronephrosis difficult. However, when correlation is made with the prior CT examination dated 02/11/2020, this patient is not believed to have significant left-sided hydronephrosis. At the inferior pole of the right kidney, there is a simple cyst that measures up to 4.9 cm, which previously measured up to 5.1 cm. Bladder: Pre-void bladder volume is 32 mL. The patient could not void for a postvoid measurement. Pre-void images demonstrate no intraluminal masses or stones. On pre-void images, neither of the ureteral jets are noted with color Doppler interrogation. (Of note, ureteral jets may not be detectable in up to 25% of cases due to insufficient differences in specific gravity between ureteral and bladder urine). Miscellaneous: No free pelvic fluid. IMPRESSION: No shadowing stones are seen on this study. It is noted that on the prior CT examination, this patient had a nonobstructing left-sided kidney stone. Left-sided peripelvic cysts are seen. This makes evaluation for superimposed hydronephrosis difficult. However, it is not believed this patient has significant hydronephrosis, when correlation is made with the prior CT. Stable simple appearing cyst at the inferior pole of the right kidney. Dictated by: Hernandez Arrieta M.D. on 07/05/2021 at 11:36 Approved by: Hernandez Arrieta M.D. on 07/05/2021 at 11:40
[2021-07-05 10:47] LABS: Add Manual Diff / Slide Review NO; Basophils Absolute Auto 0 /uL (0-100); Basophils Percent Auto 0.5 % (0-2); Eosinophils Absolute Auto 200 /uL (0-450); Eosinophils Percent Auto 2.8 % (2-4); Hematocrit 39.1 % (41-53); Hemoglobin 13.3 g/dL (13.5-17.5); Lymphocytes Absolute Auto 1600 /uL (1100-4500); Lymphocytes Percent Auto 23.4 % (25-40); Mean Corpuscular Hemoglobin 30.6 PG (26-34); Monocytes Absolute Auto 600 /uL (0-900); Monocytes Percent Auto 9.2 % (3-14); Neutrophils Absolute Auto 4400 /uL (1500-7000); Neutrophils Percent Auto 64.1 % (50-75); Platelet Count 218 X10^3/uL (150-400); Red Blood Cell Count 4.35 X10^6/uL (4.5-5.9); Red Cell Distribution Width 14.3 % (11.6-14.8); White Blood Cell Count 6.8 X10^3/uL (4.5-11.0)
[2021-07-05 12:09] LABS: Free T4, Direct Thyroxine 0.88 ng/dL (0.78-2.19)
[2021-07-05 12:23] LABS: Thyroid Stimulating Hormone 3.91 uIU/mL (0.47-4.68)
[2021-07-05 12:24] LABS: Prostate Specific Antigen 0.683 ng/mL (0.10-4.00)
[2021-07-05 12:27] LABS: Testosterone 284 ng/dL (71.8-623)
== END ==
PROVIDERS: Family Provider Physician Assistant Surgical; PCP Family Medicine; Referring Provider Physician Assistant Medical; Visit Provider Physician Assistant Medical
DX: E03.9 Hypothyroidism, unspecified (principal); R97.20 Elevated prostate specific antigen [PSA]; Z87.442 Personal history of urinary calculi; I48.0 Paroxysmal atrial fibrillation; E78.5 Hyperlipidemia, unspecified; I25.2 Old myocardial infarction; N28.1 Cyst of kidney, acquired
CPT/HCPCS: 36415; 76770; 84153; 84403; 84439; 84443; 85025

== ENCOUNTER → 2021-10-15 09:30 | Outpatient (CLI) | payer MEDICARE, OTHER, SELFPAY ==
[2020-02-11 14:00] VITALS: BMI 27.3
[2021-10-15 11:00] LABS: BUN Creatinine Ratio 26.8 (6-22); Blood Urea Nitrogen 26 mg/dL (9-20); Carbon Dioxide 30 mmol/L (22-32); Chloride 103 mmol/L (98-107); Estimated Glomerular Filt Rate > 60.0 mL/min (>60); Glucose 89 mg/dL (80-110); HEMOLYSIS < 15 (0-50); Potassium 4.6 mmol/L (3.4-5.1); Sodium 137 mmol/L (137-145)
== END ==
PROVIDERS: Family Provider Physician Assistant Surgical; PCP Family Medicine; Referring Provider Internal Medicine Cardiovascular Disease; Visit Provider Internal Medicine Cardiovascular Disease
DX: I48.0 Paroxysmal atrial fibrillation (principal); R06.00 Dyspnea, unspecified
CPT/HCPCS: 36415; 80048

== ENCOUNTER → 2022-01-08 13:40 | Outpatient (CLI) | payer MEDICARE, OTHER, SELFPAY ==
[2020-02-11 14:00] VITALS: BMI 27.3
[2022-01-08 15:01] LABS: Hematocrit 38.7 % (41-53); Hemoglobin 13.4 g/dL (13.5-17.5); Mean Corpuscular HGB Conc 34.5 % (30-36); Mean Corpuscular Hemoglobin 30.8 PG (26-34); Mean Corpuscular Volume 89.2 fL (80-100); Platelet Count 197 X10^3/uL (150-400); Red Blood Cell Count 4.34 X10^6/uL (4.5-5.9); Red Cell Distribution Width 13.3 % (11.6-14.8)
[2022-01-08 15:25] LABS: Alanine Aminotransferase 22 IU/L (<50); Albumin 4.2 g/dL (3.5-5.0); Albumin Globulin Ratio 1.6 (1.0-2.8); Alkaline Phosphatase 71 U/L (38-126); Aspartate Aminotransferase 27 IU/L (17-59); BUN Creatinine Ratio 22.9 (6-22); Bilirubin Total 0.6 mg/dL (0.2-1.3); Blood Urea Nitrogen 19 mg/dL (9-20); Calcium 8.8 mg/dL (8.4-10.2); Carbon Dioxide 26 mmol/L (22-32); Chloride 103 mmol/L (98-107); Estimated Glomerular Filt Rate > 60 mL/min (>60); Globulin 2.7 g/dL (1.7-4.1); Glucose 89 mg/dL (80-110); HEMOLYSIS < 15 (0-50); Magnesium 2.3 mg/dL (1.6-2.3); Potassium 4.5 mmol/L (3.4-5.1); Sodium 137 mmol/L (137-145); Total Protein 6.9 g/dL (6.3-8.2)
[2022-01-08 15:55] LABS: TSH w/ Reflex to FT4 2.28 uIU/mL (0.47-4.68)
== END ==
PROVIDERS: Family Provider Physician Assistant Surgical; PCP Family Medicine; Referring Provider Nurse Practitioner Family; Visit Provider Nurse Practitioner Family
DX: I48.0 Paroxysmal atrial fibrillation (principal); Z13.29 Encounter for screening for other suspected endocrine disorder
CPT/HCPCS: 36415; 80053; 83735; 84443; 85027

== ENCOUNTER → 2022-02-12 14:29 | Outpatient (CLI) | payer MEDICARE, OTHER, SELFPAY ==
[2020-02-11 14:00] VITALS: BMI 27.3
[2022-02-12 16:40] LABS: Influenza A - CEPHEID Flu A NEGATIVE (NEGATIVE); Influenza B - CEPHEID Flu B NEGATIVE (NEGATIVE)
[2022-02-12 17:28] LABS: COVID-19 CEPHEID PCR (VTM/NP) Negative (Negative)
== END ==
PROVIDERS: Family Provider Physician Assistant Surgical; PCP Family Medicine; Visit Provider Student in an Organized Health Care Education/Training Program
DX: R05.9 Cough, unspecified (principal)
CPT/HCPCS: 0240U

== ENCOUNTER → 2022-09-06 14:53 | Outpatient (CLI) | payer MEDICARE, OTHER, SELFPAY ==
[2020-02-11 14:00] VITALS: BMI 27.3
[2022-09-06 15:31] LABS: Add Manual Diff / Slide Review NO; Basophils Absolute Auto 0 /uL (0-100); Basophils Percent Auto 0.5 % (0-2); Eosinophils Absolute Auto 100 /uL (0-450); Eosinophils Percent Auto 2.3 % (2-4); Hematocrit 39.7 % (41-53); Hemoglobin 13.6 g/dL (13.5-17.5); Lymphocytes Absolute Auto 1400 /uL (1100-4500); Lymphocytes Percent Auto 22.7 % (25-40); Mean Corpuscular HGB Conc 34.2 % (30-36); Mean Corpuscular Hemoglobin 30.3 PG (26-34); Mean Corpuscular Volume 88.6 fL (80-100); Monocytes Absolute Auto 500 /uL (0-900); Monocytes Percent Auto 8.8 % (3-14); Neutrophils Absolute Auto 4100 /uL (1500-7000); Neutrophils Percent Auto 65.7 % (50-75); Platelet Count 199 X10^3/uL (150-400); Red Blood Cell Count 4.48 X10^6/uL (4.5-5.9); White Blood Cell Count 6.2 X10^3/uL (4.5-11.0)
[2022-09-06 15:47] LABS: Cholesterol 132 mg/dL (140-199); HDL Cholesterol 53 mg/dL (40-60); LDL Cholesterol Calculated 57 mg/dL (<100); Triglycerides 110 mg/dL (35-150)
[2022-09-06 16:12] LABS: Free T4, Direct Thyroxine 1.09 ng/dL (0.78-2.19)
[2022-09-06 16:16] LABS: Prostate Specific Antigen 0.532 ng/mL (0.10-4.00)
[2022-09-06 16:26] LABS: Thyroid Stimulating Hormone 2.47 uIU/mL (0.47-4.68)
[2022-09-09 15:21] LABS: Alanine Aminotransferase 33 IU/L (<50); Alkaline Phosphatase 69 U/L (38-126); Aspartate Aminotransferase 34 IU/L (17-59); BUN Creatinine Ratio 22.9 (6-22); Bilirubin Total 0.4 mg/dL (0.2-1.3); Blood Urea Nitrogen 19 mg/dL (9-20); Calcium 9.2 mg/dL (8.4-10.2); Carbon Dioxide 27 mmol/L (22-32); Chloride 103 mmol/L (98-107); Estimated Glomerular Filt Rate > 60 mL/min (>60); Glucose 85 mg/dL (80-110); HEMOLYSIS < 15 (0-50); Potassium 4.6 mmol/L (3.4-5.1); Sodium 140 mmol/L (137-145); Total Protein 7.7 g/dL (6.3-8.2)
[2022-09-13 15:51] LABS: Albumin 4.5 g/dL (3.5-5.0); Albumin Globulin Ratio 1.4 (1.0-2.8); Globulin 3.2 g/dL (1.7-4.1)
[2022-09-13 16:35] LABS: Percent Free Testosterone 1.24 % (1.50-4.20); Testosterone Free 3.83 ng/dL (5.00-21.00); Testosterone Total 308.8 ng/dL (264.0-916.0)
== END ==
PROVIDERS: Family Provider Physician Assistant Surgical; PCP Family Medicine; Referring Provider Family Medicine; Visit Provider Family Medicine
DX: E03.9 Hypothyroidism, unspecified (principal); I25.2 Old myocardial infarction; R97.20 Elevated prostate specific antigen [PSA]; I48.0 Paroxysmal atrial fibrillation; E78.5 Hyperlipidemia, unspecified
CPT/HCPCS: 36415; 80053; 80061; 84153; 84402; 84403; 84439; 84443; 85025

== ENCOUNTER → 2023-07-26 15:41 | Outpatient (CLI) | payer MEDICARE, OTHER, SELFPAY ==
[2020-02-11 14:00] VITALS: BMI 27.3
--- NOTE | 2023-07-26 15:47 | DI.MRI.S_ITS ---
PROCEDURE: MR LUMBAR SPINE WO CON INDICATIONS: Radiculopathy, lumbar region TECHNIQUE: Noncontrast sagittal T1 spin echo and T2 fast echo, sagittal STIR, and T2 fast spin echo through the lumbar spine. In cases with scoliosis, additional coronal T2 fast spin echo may be performed. COMPARISON: [facility], CR, XR LUMBAR SPINE 2 OR 3 VIEWS, 07/14/2023, 9:12. FINDINGS: Image quality: Excellent. Alignment and Curvature: Trace anterolisthesis of L3 on L4. Bone Marrow: Marrow is of normal overall signal. No acute vertebral body compression fractures. Spinal Cord: Conus medullaris terminates at the L1 level. Visualized cord demonstrates normal signal and size. Paraspinous Soft Tissues: No paravertebral masses. T12-L1: Normal appearance. L1-L2: Normal appearance. L2-L3: Minimal disc bulge. Facet hypertrophy. No canal stenosis or foraminal stenosis. L3-L4: Severe chronic disc height loss. Trace anterolisthesis of L3 on L4. Prominent facet and ligament hypertrophy. Mild canal stenosis. A right foraminal disc bulge mildly indents on the exiting right L3 nerve root far laterally. There is moderate foraminal narrowing on the right. There is [id number] left foraminal narrowing. L4-L5: Mild chronic disc height loss. Diffuse disc bulge. Associated small central posterior disc extrusion inferiorly. There is a prominent medially directed facet joint cyst off of the right facet which impinges on the right L5 nerve root in the right lateral recess. Reference axial images 25 and 26 of axial series 5. The combination of disc bulge and facet and ligament hypertrophy and epidural lipomatosis results in [id number] canal stenosis. There is additionally, a small foraminal facet joint cyst off of the same right facet which does not appear to impinge on the L4 nerve root on the right. L5-S1: Bilateral facet hypertrophy. No canal stenosis. [id number] bilateral foraminal stenosis. IMPRESSION: 1. There is underlying multilevel facet arthropathy. 2. A prominent medially directed facet joint cyst off the right facet at L4-L5 significantly impinges on the right L5 nerve root in the right lateral recess. Recommend correlation for presence or absence of right L5 symptomatology. 2. Canal stenosis is mild at L3-L4 and [id number] at L4-L5. 3. Multilevel foraminal narrowing as described above. Findings include moderate right foraminal narrowing at L3-L4. Dictated by: Navin Barron M.D. on 07/28/2023 at 15:07 Approved by: Navin Barron M.D. on 07/28/2023 at 15:16
== END ==
PROVIDERS: Family Provider Physician Assistant Surgical; PCP Family Medicine; Referring Provider Physical Medicine & Rehabilitation; Visit Provider Physical Medicine & Rehabilitation
DX: M47.26 Other spondylosis with radiculopathy, lumbar region (principal); M47.27 Other spondylosis with radiculopathy, lumbosacral region; M48.061 Spinal stenosis, lumbar region without neurogenic claudication; M48.07 Spinal stenosis, lumbosacral region; M53.86 Other specified dorsopathies, lumbar region
CPT/HCPCS: 72148

== ENCOUNTER → 2023-07-29 08:22 | Outpatient (CLI) | payer MEDICARE, OTHER, SELFPAY ==
[2020-02-11 14:00] VITALS: BMI 27.3
[2023-07-29 09:56] LABS: Add Manual Diff / Slide Review NO; Basophils Absolute Auto 100 /uL (0-100); Basophils Percent Auto 0.4 % (0-2); Eosinophils Absolute Auto 300 /uL (0-450); Eosinophils Percent Auto 2.2 % (2-4); Hemoglobin 12.3 g/dL (13.5-17.5); Lymphocytes Absolute Auto 1600 /uL (1100-4500); Lymphocytes Percent Auto 11.5 % (25-40); Mean Corpuscular HGB Conc 34.2 % (30-36); Mean Corpuscular Hemoglobin 30.4 PG (26-34); Mean Corpuscular Volume 88.7 fL (80-100); Monocytes Absolute Auto 800 /uL (0-900); Monocytes Percent Auto 5.8 % (3-14); Neutrophils Absolute Auto 11100 /uL (1500-7000); Neutrophils Percent Auto 80.1 % (50-75); Platelet Count 293 X10^3/uL (150-400); Red Blood Cell Count 4.06 X10^6/uL (4.5-5.9); Red Cell Distribution Width 13.8 % (11.6-14.8); White Blood Cell Count 13.9 X10^3/uL (4.5-11.0)
[2023-07-29 10:00] LABS: Bilirubin Urine UA NEGATIVE (NEGATIVE); Glucose Urine UA NEGATIVE (Negative); Ketones Urine UA NEGATIVE (NEGATIVE); Leukocyte Esterase Urine UA 1+ (NEGATIVE); Nitrite Urine UA NEGATIVE (Negative); Occult Blood Urine UA NEGATIVE (Negative); Protein Urine UA NEGATIVE (Negative); Specific Gravity Urine UA 1.025 (1.000-1.035); pH Urine UA 5.5 (4.5-8.0)
[2023-07-29 10:03] LABS: Color Urine UA ORANGE
[2023-07-29 10:04] LABS: Appearance Urine UA SL CLOUDY
[2023-07-29 10:23] LABS: Alanine Aminotransferase 18 IU/L (<50); Albumin Globulin Ratio 1.4 (1.0-2.8); Alkaline Phosphatase 70 U/L (38-126); Aspartate Aminotransferase 24 IU/L (17-59); BUN Creatinine Ratio 27.4 (6-22); Bilirubin Total 0.6 mg/dL (0.2-1.3); Blood Urea Nitrogen 17 mg/dL (9-20); Calcium 9.5 mg/dL (8.4-10.2); Carbon Dioxide 28 mmol/L (22-32); Chloride 101 mmol/L (98-107); Cholesterol 114 mg/dL (140-199); Estimated Glomerular Filt Rate > 60 mL/min (>60); Globulin 2.8 g/dL (1.7-4.1); Glucose 85 mg/dL (80-110); HDL Cholesterol 52 mg/dL (40-60); HEMOLYSIS < 15 (0-50); LDL Cholesterol Calculated 47 mg/dL (<100); Potassium 4.5 mmol/L (3.4-5.1); Sodium 136 mmol/L (137-145); Total Protein 6.8 g/dL (6.3-8.2); Triglycerides 77 mg/dL (35-150)
[2023-07-29 10:32] LABS: Erythrocyte Sedimentation Rate 13 MM/HR (0-15)
[2023-07-29 10:37] LABS: Bacteria Urine Few (2-10); Culture Indicated Urine Specimen Cultured; Mucus Urine 1+ (Negative); RBC Urine 0-1/HPF (0-5/HPF); Squamous Epithelial Cell Urine 1-5 /HPF (0-5/HPF); WBC Urine 5-10/HPF (0-5/HPF)
[2023-07-29 10:38] LABS: Free T4, Direct Thyroxine 1.28 ng/dL (0.78-2.19)
[2023-07-29 10:52] LABS: Thyroid Stimulating Hormone 3.67 uIU/mL (0.47-4.68)
[2023-07-29 10:55] LABS: Prostate Specific Antigen < 0.064 ng/mL (0.10-4.00)
== END ==
PROVIDERS: Family Provider Physician Assistant Surgical; PCP Family Medicine; Referring Provider Family Medicine; Visit Provider Family Medicine
DX: E03.9 Hypothyroidism, unspecified (principal); R97.20 Elevated prostate specific antigen [PSA]; I25.2 Old myocardial infarction; I48.0 Paroxysmal atrial fibrillation; D65 Disseminated intravascular coagulation [defibrination syndrome]; E78.5 Hyperlipidemia, unspecified; N39.498 Other specified urinary incontinence
CPT/HCPCS: 36415; 80053; 80061; 81001; 84153; 84439; 84443; 85025; 85651; 87086

== ENCOUNTER 2023-10-18 17:30 | Emergency (ER) | payer MEDICARE, OTHER, SELFPAY ==
[2020-02-11 14:00] VITALS: BMI 27.3
[2023-10-18 17:37] VITALS: BP 178/76; PULSE 67; RESP 18; TEMP 36.3; O2SAT 99; BMI 29.9
--- NOTE | 2023-10-18 19:00 | ED_ITS ---
HPI - Male Genitourinary General Chief complaint: Urogenital-Male Stated complaint: urinary issues Time Seen by Provider: 10/18/23 18:51 Source: patient Mode of arrival: Ambulatory Limitations: no limitations History of Present Illness HPI Narrative: 73-year-old male with history of atrial fibrillation anticoagulated on apixaban, hypertension, dyslipidemia, coronary artery disease with three-vessel CABG, with prior undescended testicles with surgery at age 11 who presents with complaint of testicular pain, swelling and urinary symptoms. Patient states he had surgery for undescended testicles age 11 he states the right sort of retracted back up over the years he sometimes can sort push it back down. The left seemed to stay down. He has had some mild pain he states more when he bends over or compresses the left testicle it has otherwise not painful but he is noticed swelling. He has not noticed redness or other skin changes. He has noted he has had some increased incontinence and that he is fairly making it to the bathroom. He denies dysuria, does have some sense of urgency, frequency. No discharge. Patient states he does have a history of prostate cancer in the past did not require treatment they follow annually and he states the prostate and tumor have shrunk. He has not had any fevers or chills. Denies any chest pain or shortness of breath. No nausea or vomiting. No diarrhea or constipation. He reached out to his physician who recommended he come for evaluation. Patient states other surgeries include a prior cholecystectomy in 2019 and a three- vessel CABG in October of 2019. Patient denies any drug allergies. No tobacco, occasional alcohol, no recreational drugs. Dr. Feng is his primary care physician. He follows with [facility]. Related Data Home Medications Medication Instructions Recorded Confirmed losartan 50 mg tablet 50 mg PO DAILY ##0 10/16/17 03/08/20 magnesium oxide 400 mg (241.3 mg 400 mg PO DAILY ##0 10/16/17 03/08/20 magnesium) tablet Calcium 1 tab PO BID 05/22/18 03/08/20 Vitamin C 1 tab PO DAILY 05/22/18 03/08/20 Vitamin D3 1 cap PO DAILY 05/22/18 03/08/20 bicalutamide 50 mg tablet 50 mg PO Q OTHER DAY 02/11/20 03/08/20 hydrocodone 5 mg-acetaminophen 325 1 tab PO Q4H PRN Pain (Scale Score 02/11/20 03/08/20 mg tablet 4-6) metoprolol tartrate 25 mg tablet 25 mg PO BID 02/11/20 03/08/20 rosuvastatin 40 mg tablet 40 mg PO DAILY 02/11/20 03/08/20 levothyroxine 25 mcg tablet 25 mcg PO DAILY 02/12/20 03/08/20 Previous Rx's Medication Instructions Recorded acetaminophen 325 mg capsule 650 mg (2 x 325 mg) PO QID PRN 02/14/20 (Tylenol) pain #60 caps docusate sodium 100 mg capsule 100 mg PO BID #30 caps 02/14/20 (Colace) oxycodone 5 mg tablet 5 mg PO Q6H PRN pain #30 tabs 02/14/20 apixaban 5 mg tablet (Eliquis) 5 mg PO BID #30 tabs 09/07/20 doxycycline hyclate 100 mg tablet 100 mg PO BID #20 tabs 10/18/23 Allergies Allergy/AdvReac Type Severity Reaction Status Date / Time caffeine [CAFFEINE] AdvReac Unknown HEADACHE, Verified 03/08/20 11:14 VOMITING glutamine [GLUTAMINE] AdvReac Unknown HEADACHE, Verified 03/08/20 11:14 VOMITING Nitrate Analogues AdvReac Unknown HEADACHE, Verified 03/08/20 11:14 [NITRATE ANALOGUES] VOMITING Sulfa (Sulfonamide AdvReac Unknown VOMITING, Verified 03/08/20 11:14 Antibiotics) RACING [SULFA (SULFONAMIDE HEART ANTIBIOTICS)] cheese AdvReac Headache Verified 03/08/20 11:14 monosodium glutamate AdvReac Vomiting Verified 03/08/20 11:14 Review of Systems Review of Systems ROS Unobtainable: All systems reviewed & are unremarkable except as noted in HPI and below Patient History Medical History Coronary artery disease Surgical History S/P CABG (coronary artery bypass graft) Social History household members: spouse and family Smoking Status: Never smoker Smoking Status: Never smoker alcohol intake frequency: holidays/special occasions only Substance Use Type: does not use Exam Narrative Exam Narrative: GENERAL: Alert and oriented x three, male in mild distress HEENT: Head normocephalic, atraumatic, EOMI, pupils reactive, face symmetric, moist mucous membranes NECK: Supple, full range of motion CARDIOVASCULAR: Regular rate and rhythm without murmurs, rubs or gallops. RESPIRATORY: Breath sounds equal bilaterally, no wheezes rales or rhonchi. ABDOMEN: Soft, nontender. Normoactive bowel sounds all 4 quadrants. No guarding or rebound, rigidity, no mass : No CVA tenderness. Male: normal external examination for penis, patient's left testicle appears swollen,, no penile discharge or lesions, testicles non- tender to palpation, unable to palpate the right testicle easily, cremasteric reflex intact, no inguinal hernias noted. EXTREMITIES: Normal range of motion, no clubbing or edema. Neurovascularly intact NEUROLOGICAL: Cranial nerves II through XII grossly intact. Moving all extremities SKIN: Warm, dry, no petechiae, no rashes or lesions. Initial Vital Signs Initial Vital Signs: Vital Signs Temperature 97.4 F L 10/18/23 17:37 Pulse Rate 67 10/18/23 17:37 Respiratory Rate 18 10/18/23 17:37 Blood Pressure 178/76 H 10/18/23 17:37 Pulse Oximetry 99 10/18/23 17:37 Oxygen Delivery Method Room Air 10/18/23 17:37 Course Orders Ordered: ED Orders 10/18/23 19:12 US scrotum Stat Discontinued Medications Acetaminophen (Acetaminophen 325 Mg Tablet) 975 mg PO NOW ONE Stop: 10/18/23 19:13 Last Admin: 10/18/23 19:35 Dose: 975 mg Documented By: RAMESH Ceftriaxone Sodium (Ceftriaxone 2,000 Mg Vial) 1,000 mg IM NOW ONE Stop: 10/18/23 21:10 Last Admin: 10/18/23 21:23 Dose: 1,000 mg Documented By: RAMESH Doxycycline Hyclate (Doxycycline Hyclate 100 Mg Tablet) 100 mg PO NOW ONE Stop: 10/18/23 21:10 Last Admin: 10/18/23 21:23 Dose: 100 mg Documented By: RAMESH Vital Signs Vital signs: Vital Signs - 8 hr 10/18/23 21:40 Temperature 97.7 F Pulse Rate 68 Respiratory Rate 16 Blood Pressure 144/78 H Pulse Oximetry 98 Oxygen Delivery Method Room Air MDM - Male Genitourinary Lab Data Labs: Lab Results 10/18/23 Range/Units 18:30 Urine RBC 5-10/hpf H (0-5/HPF) Urine WBC 30-100/hpf H (0-5/HPF) Ur Squamous Epith Cells 1-5 /hpf (0-5/HPF) Ur Transition Epith Cell 1-5/hpf (0-5/HPF) Urine Bacteria Few (2-10) H (None) Vol Urine Centrifuged 10ml (spun) Urine Dip Bedside Urine Glucose Negative Bedside Urine Bilirubin - Negative Bedside Urine Ketone - Negative Urine Specific [place] 1.030 Bedside Urine Occult Blood ++ Bedside Urine pH 6.0 Bedside Urine Protein +/- 15 Bedside Urine Urobilinogen - Negative Bedside Urine Nitrite - Negative Bedside Urine Leukocytes +++ 500 Esterase Imaging Data scrotum us: Radiologist's Impression: te (More??) Close Scrotum Ultrasound (Signed) Ervin Choudhary - 10/18/23 Lumbar Spine MRI (Signed) Navin Barron - 07/26/23 Renal Ultrasound (Signed) Hernandez Arrieta - 07/05/21 Renal Ultrasound (Addendum) Hernandez Arrieta - 10/09/20 Abdomen Ultrasound (Signed) Kristen Espino - 02/11/20 Chest/Abdomen/Pelvis CT (Signed) Alex Topete - 02/11/20 Chest/Abdomen X-ray (Signed) Chantell Crawford - 02/11/20 Chest X-Ray (Signed) Hernandez Arrieta - 09/29/19 Carotid Doppler Study (Signed) Bay Sullivan - 09/21/19 Abdomen/Pelvis CT (Signed) Scarlett Blum - 08/03/[address] [address] Ultrasound Report Signed Patient: Neo Aragon MR#: [id number] : 1950 Acct:[id number] Age/Sex: 73 / M Date of Service: 10/18/23 Loc: ED Accession Number: [id number] Procedure: US scrotum Ordering Provider: Cindy Drummond D.O. PROCEDURE: US SCROTUM INDICATIONS: Left testicular swelling/discomfort. prior sx age 11 undesc TECHNIQUE: Real-time scanning was performed of the scrotum and testicles, with image documentation. Color and pulse Doppler interrogation was performed of both testicles. COMPARISON: None. FINDINGS: Right: Testicle is mildly enlarged in size compared to the left testicle at 4.4 x 1.7 x 2.5 cm, and heterogeneous in echotexture. Epididymis is normal in overall size and morphology. No hydrocele or varicoceles. Overlying scrotal skin is normal in thickness. Left: Testicle is normal in size at 2.1 x 2.1 x 2.6 cm, and mildly heterogeneous in echotexture. Epididymis is normal in overall size and morphology. No hydrocele or varicoceles. Overlying scrotal skin is normal in thickness. Doppler: Color and pulse Doppler demonstrate normal left-sided and asymmetric diminished arterial flow in the right testicle when compared to the left testicle. IMPRESSION: Heterogeneous testicles bilaterally but greater heterogeneity on the right than the left. Additionally, the right testicle is asymmetrically mildly larger in size and demonstrates asymmetric reduced arterial vascularity when compared with that on the left. Recent testicular torsion is considered the most likely cause. However, the reported symptomatology is on the left and the history includes bilateral undescended testicles with surgical reduction. Reportedly underdeveloped right testis. Prior ischemic injury may explain the asymmetric findings discussed above. Dictated by: Ervin Choudhary M.D. on 10/18/2023 at 20:55 Approved by: Ervin Choudhary M.D. on 10/18/2023 at 20:59 MDM Narrative Medical decision making narrative: 73-year-old male with sense of significant urgency barely making it to the bathroom and increased swelling of his left testicle. He states mildly tender but more with compression. He has not tender on examination. He notes that he did have undescended testicles and had surgery at age 11 and that the right 1 is sort of retracted up over the years. Patient states he has not had swelling in the left testicle in the past. He has not noticed any skin changes. Does have a history of prostate cancer that has been untreated but has had surveillance with reportedly low PSAs and decreased size of prostate and prostate cancer. Urine does show leukocyte esterase as well as blood, microscopy shows 5-10 RBCs 3200 WBCs 1 5 squamous, 1-5 transitional cells few bacteria. Culture ordered Scrotum ultrasound shows right testicle with asymmetric reduced atrial vascularity compared to the left recent towards testicular torsion considered most likely cause prior ischemic injury may explain asymmetric findings of the right. Right is mildly enlarged compared to the left, epididymis normal with no hydro or varus feels overlying skin thickness is normal and on the left normal size mildly heterogeneous epididymis normal size with no hydrocele or varicocele and normal skin. Discussed findings with patient he states the right testicle retracts and has been reportedly smaller to him in the past suspect his changes are consistent with longstanding history. He is asymptomatic on that side. We will treat for infection based on patient's UA and have patient follow up with his Urology team. Reviewed patients findings. Copy of his ultrasound report was shared with the patient. Patient started with a dose of Rocephin and doxycycline. He feels comfortable with this plan. Discharge Plan Departure Patient Disposition: Home Clinical Impression: Testicular swelling, left, Acute UTI Activity Restrictions/Additional Instructions: Your ultrasound today shows that the right testicle is slightly larger than the left on ultrasound findings, it is also noted that there is some new reduced arterial vascularity on the right compared to the left. I suspect this has been longstanding for some time. Please follow up with your urologist. A copy of your ultrasound report is included. The left testicle does not show any changes to the skin, epididymis or any hydroceles or varicoceles but your urine does show signs of infection. Please take antibiotics until completed. Prescription sent to [facility] in [place]. Please return for new or worsening symptoms, rapidly increasing pain, increasing difficulty with urination, new fevers or chills, abdominal back or flank pain, redness or skin changes or other new or concerning changes. Prescriptions: New doxycycline hyclate 100 mg tablet 100 mg PO BID Qty: 20 0RF No Action losartan 50 MG tablet 50 mg PO DAILY Qty: 0 Patient Comments: no longer taking and doesnt remember when he last took this med magnesium oxide 400 MG tablet 400 mg PO DAILY Qty: 0 Calcium 1 tab PO BID Vitamin C 1 tab PO DAILY Vitamin D3 1 cap PO DAILY bicalutamide 50 mg Tablet 50 mg PO Q OTHER DAY rosuvastatin 40 mg Tablet 40 mg PO DAILY metoprolol tartrate 25 mg Tablet 25 mg PO BID hydrocodone-acetaminophen 5-325 mg Tablet 1 tab PO Q4H PRN (Reason: Pain (Scale Score 4-6)) levothyroxine 25 mcg Tablet 25 mcg PO DAILY docusate sodium [Colace] 100 mg capsule 100 mg PO BID Qty: 30 0RF oxycodone 5 mg tablet 5 mg PO Q6H PRN (Reason: pain) Qty: 30 0RF acetaminophen [Tylenol] 325 mg capsule 650 mg PO QID PRN (Reason: pain) Qty: 60 0RF Eliquis 5 mg tablet 5 mg PO BID Qty: 30 0RF Referrals: Neo Rivera DO [Non-Staff] - Georges Feng MD [Primary Care Provider] - Stand Alone Forms: Patient Portal/API
--- NOTE | 2023-10-18 19:12 | DI.US.S_ITS ---
PROCEDURE: US SCROTUM INDICATIONS: Left testicular swelling/discomfort. prior sx age 11 undesc TECHNIQUE: Real-time scanning was performed of the scrotum and testicles, with image documentation. Color and pulse Doppler interrogation was performed of both testicles. COMPARISON: None. FINDINGS: Right: Testicle is mildly enlarged in size compared to the left testicle at 4.4 x 1.7 x 2.5 cm, and heterogeneous in echotexture. Epididymis is normal in overall size and morphology. No hydrocele or varicoceles. Overlying scrotal skin is normal in thickness. Left: Testicle is normal in size at 2.1 x 2.1 x 2.6 cm, and mildly heterogeneous in echotexture. Epididymis is normal in overall size and morphology. No hydrocele or varicoceles. Overlying scrotal skin is normal in thickness. Doppler: Color and pulse Doppler demonstrate normal left-sided and asymmetric diminished arterial flow in the right testicle when compared to the left testicle. IMPRESSION: Heterogeneous testicles bilaterally but greater heterogeneity on the right than the left. Additionally, the right testicle is asymmetrically mildly larger in size and demonstrates asymmetric reduced arterial vascularity when compared with that on the left. Recent testicular torsion is considered the most likely cause. However, the reported symptomatology is on the left and the history includes bilateral undescended testicles with surgical reduction. Reportedly underdeveloped right testis. Prior ischemic injury may explain the asymmetric findings discussed above. Dictated by: Ervin Choudhary M.D. on 10/18/2023 at 20:55 Approved by: Ervin Choudhary M.D. on 10/18/2023 at 20:59
[2023-10-18 19:17] LABS: Urine Volume 10mL (spun); WBC Urine 30-100/HPF (0-5/HPF)
[2023-10-18 19:18] LABS: Bacteria Urine Few (2-10); RBC Urine 5-10/HPF (0-5/HPF); Squamous Epithelial Cell Urine 1-5 /HPF (0-5/HPF); Transitional Epi Cells Urine 1-5/HPF (0-5/HPF)
[2023-10-18] MEDS: ACETAMINOPHEN 325 MG TABLET 975 MG PO (19:35)
[2023-10-18] MEDS: DOXYCYCLINE HYCLATE 100 MG TABLET PO (21:23)
[2023-10-18] MEDS: cefTRIAXone 2,000 MG VIAL 1000 MG IM (21:23)
[2023-10-18 21:40] VITALS: BP 144/78; PULSE 68; RESP 16; TEMP 36.5; O2SAT 98
== END 2023-10-18 21:41 | disposition home or self-care (01) ==
PROVIDERS: Emergency Provider Emergency Medicine; Family Provider Physician Assistant Surgical; PCP Family Medicine
DX: N50.89 Other specified disorders of the male genital organs (principal); N39.0 Urinary tract infection, site not specified
CPT/HCPCS: 76870; 81003; 81015; 87077; 87086; 96372; 99283; 99284; J0696

== ENCOUNTER 2023-11-03 20:50 | Emergency (ER) | payer MEDICARE, OTHER, SELFPAY ==
[2020-02-11 14:00] VITALS: BMI 27.3
[2023-11-03 20:53] VITALS: BP 131/63; PULSE 73; RESP 16; TEMP 36.2; O2SAT 99; BMI 29.2
--- NOTE | 2023-11-03 21:09 | DI.US.S_ITS ---
PROCEDURE: US SCROTUM INDICATIONS: pain prior us TECHNIQUE: Real-time scanning was performed of the scrotum and testicles, with image documentation. Color and pulse Doppler interrogation was performed of both testicles. COMPARISON: [facility], [place], US SCROTUM, 10/18/2023, 19:49. FINDINGS: Right: Testicle is normal in size at 4.8 x 1.6 cm, and appears heterogeneous and hypoechoic as seen on the ultrasound from 10/18/2023. Right epididymal head simple cyst measures up to 1.6 cm maximum dimension. Epididymis is normal in overall size and morphology. No hydrocele or varicoceles. Overlying scrotal skin is normal in thickness. Left: Testicle is normal in size at 3.1 x 2.7 cm, and appears mildly heterogeneous. A left epididymal head simple cyst measures up to 1.4 cm. Epididymis appears heterogeneous. There is a 2.1 x 1.3 x 1.5 cm heterogeneously hypoechoic area within the epididymis that is new when compared to the prior ultrasound. No definite central vascularity within this lesion. Vascularity throughout the remainder of the epididymis is increased. Overlying scrotal wall appears thickened. Doppler: Color and pulse Doppler demonstrate relatively diminished vascular flow within the right testicle as before. Increased vascularity in the left testicle is difficult to exclude. IMPRESSION: 1. Heterogeneous hypervascular left epididymis is consistent with epididymitis. New 2.1 cm probable complex fluid collection in the left epididymal body is suspicious for developing abscess. 2. Irregular and heterogeneous appearance of the right testicle appears unchanged, possibly related to a prior infarct or developmental abnormality. Approved by: Babar Chopra M.D. on 11/03/2023 at 22:05
--- NOTE | 2023-11-03 21:35 | DI.RAD.S_ITS ---
PROCEDURE: XR CHEST 1V INDICATIONS: suspected sepsis TECHNIQUE: One view of the chest was acquired. COMPARISON: [facility], CR, XR CHEST 2V, 09/29/2019, 8:56. FINDINGS: Surgical changes and devices: Sternotomy wires and mediastinal clips are present. Atrial appendage clip is noted. Lungs and pleura: Lungs are clear. No pleural effusions or pneumothorax. Mediastinum: Mediastinal contours appear normal. Heart size is normal. Bones and chest wall: No suspicious bony lesions. Overlying soft tissues appear unremarkable. IMPRESSION: No acute cardiopulmonary abnormality is seen. Approved by: Babar Chopra M.D. on 11/03/2023 at 22:12
--- NOTE | 2023-11-03 21:45 | ED.MALEGU ---
HPI - Male Genitourinary General Chief complaint: Urogenital-Male Stated complaint: Swollen Testicles/Abd Pain/lt leg pain Time Seen by Provider: 11/03/23 21:09 Source: patient Mode of arrival: Ambulatory History of Present Illness HPI Narrative: Patient is a 73-year-old male history of atrial fibrillation on Eliquis, coronary artery disease, three-vessel CABG undescended testicles with surgery at age 11 presents today with ongoing left testicular pain. He initially was put on doxycycline however his urine grew Acitinomyces culture and sensitivity was sent out to [facility] and not yet back. He has been on Augmentin since October 26. He reports that last night he was in excruciating pain unable to get comfortable. He is having some mild left lower quadrant and inguinal abdominal pain as well. He denies any significant fever or sweats. No chest pain or shortness of breath. He does have a urologist over at [facility] apparently was seen by him on the at least by PA in the clinic. He reports that he has not really gotten any better. No significant increased redness or swelling just in pain of left testing Related Data Home Medications Medication Instructions Recorded Confirmed losartan 50 mg tablet 50 mg PO DAILY ##0 10/16/17 03/08/20 magnesium oxide 400 mg (241.3 mg 400 mg PO DAILY ##0 10/16/17 03/08/20 magnesium) tablet Calcium 1 tab PO BID 05/22/18 03/08/20 Vitamin C 1 tab PO DAILY 05/22/18 03/08/20 Vitamin D3 1 cap PO DAILY 05/22/18 03/08/20 bicalutamide 50 mg tablet 50 mg PO Q OTHER DAY 02/11/20 03/08/20 hydrocodone 5 mg-acetaminophen 325 1 tab PO Q4H PRN Pain (Scale Score 02/11/20 03/08/20 mg tablet 4-6) metoprolol tartrate 25 mg tablet 25 mg PO BID 02/11/20 03/08/20 rosuvastatin 40 mg tablet 40 mg PO DAILY 02/11/20 03/08/20 levothyroxine 25 mcg tablet 25 mcg PO DAILY 02/12/20 03/08/20 Previous Rx's Medication Instructions Recorded acetaminophen 325 mg capsule 650 mg (2 x 325 mg) PO QID PRN 02/14/20 (Tylenol) pain #60 caps docusate sodium 100 mg capsule 100 mg PO BID #30 caps 02/14/20 (Colace) oxycodone 5 mg tablet 5 mg PO Q6H PRN pain #30 tabs 02/14/20 apixaban 5 mg tablet (Eliquis) 5 mg PO BID #30 tabs 09/07/20 doxycycline hyclate 100 mg tablet 100 mg PO BID #20 tabs 10/18/23 cefdinir 300 mg capsule 300 mg PO Q12H #20 caps 11/04/23 hydrocodone 5 mg-acetaminophen 325 1 tab PO Q6H PRN pain #14 tabs 11/04/23 mg tablet Allergies Allergy/AdvReac Type Severity Reaction Status Date / Time caffeine [CAFFEINE] AdvReac Unknown HEADACHE, Verified 03/08/20 11:14 VOMITING glutamine [GLUTAMINE] AdvReac Unknown HEADACHE, Verified 03/08/20 11:14 VOMITING Nitrate Analogues AdvReac Unknown HEADACHE, Verified 03/08/20 11:14 [NITRATE ANALOGUES] VOMITING Sulfa (Sulfonamide AdvReac Unknown VOMITING, Verified 03/08/20 11:14 Antibiotics) RACING [SULFA (SULFONAMIDE HEART ANTIBIOTICS)] cheese AdvReac Headache Verified 03/08/20 11:14 monosodium glutamate AdvReac Vomiting Verified 03/08/20 11:14 Patient History Medical History Coronary artery disease Surgical History S/P CABG (coronary artery bypass graft) Social History household members: spouse and family Smoking Status: Never smoker Smoking Status: Never smoker alcohol intake frequency: holidays/special occasions only Substance Use Type: does not use Exam Initial Vital Signs Initial Vital Signs: Vital Signs Temperature 97.2 F L 11/03/23 20:53 Pulse Rate 73 11/03/23 20:53 Respiratory Rate 16 11/03/23 20:53 Blood Pressure 131/63 11/03/23 20:53 Pulse Oximetry 99 11/03/23 20:53 Oxygen Delivery Method Room Air 11/03/23 20:53 GENERAL: Alert well-appearing 73-year-old male HEENT: Head atraumatic,EOMI, pupils reactive, face symmetric, moist mucous membranes CARDIOVASCULAR: Regular rate and rhythm without murmurs, rubs or gallops. RESPIRATORY: Breath sounds equal bilaterally, no wheezes rales or rhonchi. ABDOMEN: Soft, minor left lower quadrant pain no guarding or rebound : No CVA tenderness Nurse Leanna in room tenderness to left testicle no significant swelling or erythema pain old inguinal canal as well but no obvious hernia. EXTREMITIES: Normal range of motion, no clubbing or edema. Neurovascularly intact NEUROLOGICAL: Alert and oriented x4.Normal gait and speech. SKIN: Warm, dry, no laceration, no petechiae, no rashes or lesions. Course Orders Ordered: ED Orders 11/03/23 21:09 US scrotum Stat 11/03/23 21:35 XR chest 1V Stat EKG-12 Lead Stat RT Consult Eval and Treat NOW 11/03/23 21:51 Complete Blood Count AUTO DIFF Stat Comprehensive Metabolic Panel Stat Lactate (Lactic Acid) Stat Lipase Stat PTT Partial Thromboplastin Phi Stat Procalcitonin Stat Prothrombin Time INR Stat 11/03/23 22:10 Blood Culture Stat Discontinued Medications Hydrocodone Bitart/Acetaminophen (Hydrocodone/Acet 5/325 Prepack) 1 bottle MISC DIRECTED ONE Stop: 11/04/23 00:35 Last Admin: 11/04/23 00:59 Dose: 1 bottle Documented By: PINO Sodium Chloride (Normal Saline 0.9%) 1,000 mls @ 1,000 mls/hr IV BOLUS ONE Stop: 11/03/23 22:34 Last Infusion: 11/03/23 23:11 Dose: Infused Documented By: Admin: 11/03/23 21:52 Dose: 1,000 mls/hr Documented By: PINO Cefepime HCl 1 gm/ Sodium (Chloride) 100 mls @ 200 mls/hr IV NOW ONE Stop: 11/03/23 23:41 Last Infusion: 11/04/23 00:32 Dose: Infused Documented By: Admin: 11/03/23 23:55 Dose: 200 mls/hr Documented By: PINO Morphine Sulfate (Morphine 2 Mg/Ml Inj) 2 mg IV NOW ONE Stop: 11/03/23 22:12 Last Admin: 11/03/23 22:17 Dose: 2 mg Documented By: PINO Morphine Sulfate (Morphine 2 Mg/Ml Inj) 2 mg IV NOW ONE Stop: 11/04/23 00:35 Last Admin: 11/04/23 00:39 Dose: 2 mg Documented By: PINO Ondansetron HCl (Ondansetron 4 Mg/2 Ml Inj) 4 mg IV NOW PRN PRN Reason: Nausea And Vomiting Last Admin: 11/03/23 22:17 Dose: 4 mg Documented By: PINO Ondansetron HCl (Ondansetron 4 Mg Odt) 4 mg SL NOW PRN PRN Reason: Nausea And Vomiting Vital Signs Vital signs: Vital Signs - 8 hr 11/03/23 20:53 11/03/23 22:05 11/03/23 22:59 Temperature 97.2 F L Pulse Rate 73 64 64 Respiratory Rate 16 21 16 Blood Pressure 131/63 164/75 H 150/69 H Pulse Oximetry 99 100 97 Oxygen Delivery Method Room Air Room Air Room Air 11/04/23 00:56 Temperature Pulse Rate 63 Respiratory Rate 12 Blood Pressure 138/62 Pulse Oximetry 96 Oxygen Delivery Method Room Air MDM - Male Genitourinary Lab Data 11/03/23 21:51 11/03/23 21:51 Labs: Lab Results 11/03/23 Range/Units 21:51 WBC 11.9 H (4.5-11.0) X10^3/uL RBC 3.74 L (4.5-5.9) X10^6/uL Hgb 11.5 L (13.5-17.5) g/dL Hct 33.5 L (41-53) % MCV 89.5 (80-100) fL MCH 30.8 (26-34) PG MCHC 34.4 (30-36) % RDW 13.5 (11.6-14.8) % Plt Count 270 (150-400) X10^3/uL Neut % (Auto) 79.2 H (50-75) % Lymph % (Auto) 10.5 L (25-40) % [place] % (Auto) 7.9 (3-14) % Eos % (Auto) 2.0 (2-4) % Baso % (Auto) 0.4 (0-2) % Neut # (Auto) 9400 H (1084-9112) /uL Lymph # (Auto) 1200 (6668-4197) /uL [place] # (Auto) 900 (0-900) /uL Eos # (Auto) 200 (0-450) /uL Baso # (Auto) 100 (0-100) /uL PT 12.7 H (9.4-12.5) SECONDS INR 1.1 (0.9-1.3) APTT 36 (25.1-36.5) SECONDS Sodium 134 L (137-145) mmol/L Potassium 4.3 (3.4-5.1) mmol/L Chloride 104 (98-107) mmol/L Carbon Dioxide 28 (22-32) mmol/L BUN 17 (9-20) mg/dL Creatinine 0.69 (0.66-1.25) mg/dL Estimated GFR > 60 (>60) mL/min BUN/Creatinine Ratio 24.6 H (6-22) Glucose 97 (80-110) mg/dL Lactate 1.0 (0.7-2.1) mmol/L Calcium 8.6 (8.4-10.2) mg/dL Total Bilirubin 0.5 (0.2-1.3) mg/dL AST 20 (17-59) IU/L ALT 17 (<50) IU/L Alkaline Phosphatase 70 (38-126) U/L Total Protein 6.5 (6.3-8.2) g/dL Albumin 3.6 (3.5-5.0) g/dL Globulin 2.9 (1.7-4.1) g/dL Albumin/Globulin Ratio 1.2 (1.0-2.8) Lipase 49 (23-300) U/L Procalcitonin 0.05 (<0.5) ng/mL Urine Dip Bedside Urine Glucose Negative Bedside Urine Bilirubin - Negative Bedside Urine Ketone - Negative Urine Specific [place] 1.010 Bedside Urine Occult Blood - Negative Bedside Urine pH 8.0 Bedside Urine Protein - Negative Bedside Urine Urobilinogen - Negative Bedside Urine Nitrite - Negative Bedside Urine Leukocytes - Negative Esterase Imaging Data US scrotum: Radiologist's Impression: PROCEDURE: US SCROTUM INDICATIONS: pain prior us TECHNIQUE: Real-time scanning was performed of the scrotum and testicles, with image documentation. Color and pulse Doppler interrogation was performed of both testicles. COMPARISON: [facility], US, US SCROTUM, 10/18/2023, 19:49. FINDINGS: Right: Testicle is normal in size at 4.8 x 1.6 cm, and appears heterogeneous and hypoechoic as seen on the ultrasound from 10/18/2023. Right epididymal head simple cyst measures up to 1.6 cm maximum dimension. Epididymis is normal in overall size and morphology. No hydrocele or varicoceles. Overlying scrotal skin is normal in thickness. Left: Testicle is normal in size at 3.1 x 2.7 cm, and appears mildly heterogeneous. A left epididymal head simple cyst measures up to 1.4 cm. Epididymis appears heterogeneous. There is a 2.1 x 1.3 x 1.5 cm heterogeneously hypoechoic area within the epididymis that is new when compared to the prior ultrasound. No definite central vascularity within this lesion. Vascularity throughout the remainder of the epididymis is increased. Overlying scrotal wall appears thickened. Doppler: Color and pulse Doppler demonstrate relatively diminished vascular flow within the right testicle as before. Increased vascularity in the left testicle is difficult to exclude. IMPRESSION: 1. Heterogeneous hypervascular left epididymis is consistent with epididymitis. New 2.1 cm probable complex fluid collection in the left epididymal body is suspicious for developing abscess. 2. Irregular and heterogeneous appearance of the right testicle appears unchanged, possibly related to a prior infarct or developmental abnormality. Approved by: Babar Chopra M.D. on 11/03/2023 at 22:05 Chest x-ray: Radiologist's Impression: PROCEDURE: XR CHEST 1V INDICATIONS: suspected sepsis TECHNIQUE: One view of the chest was acquired. COMPARISON: [facility], , XR CHEST 2V, 09/29/2019, 8:56. FINDINGS: Surgical changes and devices: Sternotomy wires and mediastinal clips are present. Atrial appendage clip is noted. Lungs and pleura: Lungs are clear. No pleural effusions or pneumothorax. Mediastinum: Mediastinal contours appear normal. Heart size is normal. Bones and chest wall: No suspicious bony lesions. Overlying soft tissues appear unremarkable. IMPRESSION: No acute cardiopulmonary abnormality is seen. Approved by: Babar Chopra M.D. on 11/03/2023 at 22:12 ECG Data Attestation: I personally reviewed and interpreted this ECG as follows: Interpretation: Sinus rhythm rate 66 WV interval 190 QRS [address] changes similar to previous EKGs MDM Narrative Medical decision making narrative: Patient 73-year-old male presents with ongoing left-sided testicular pain. Reports that pain was significantly worse last night. He was treated for epididymitis with doxycycline however his urine culture grew Actinomyces. Holter and sensitivity was sent off to [facility] but has not yet returned. Primary put him on Augmentin. He has been on Augmentin for 7 days and reports increasing pain. His vitals are stable he is afebrile he overall does not appear septic or toxic. On exam no obvious abscess erythema or swelling but is quite tender to touch. Blood work has been reviewed WBC 11.9, lactate 1.0, procalcitonin 0.05, troponin negative no MANDEEP or electrolyte abnormality Imaging has been reviewed his chest x-ray is negative however scrotal ultrasound does show left epididymitis with complex fluid collection in the left epididymal body suspicious for developing abscess 11:42pm Dr. Real on-call Urology updated on patient's symptoms test results concerning for scrotal abscess and failed outpatient antibiotics. He clinically overall appears well and blood work is reassuring at this time he recommends outpatient antibiotics with cefdinir and close outpatient follow-up. Discussed with patient urology recommendations. He is given 1 dose of cefepime here in the ED. He is feeling much better with morphine. He does have a urologist who he saw couple days ago. At this time recommend he follow up with his own urologist but Dr. Real is of course happy to see him. Discussed with the morning signs and when to return to the ED. At this time based on exam blood work stable vitals I think reasonable to changes antibiotic. I have called down to lab itself regards to culture and sensitivity being sent out to [facility] and it not being back yet. They will make a note for the morning people. Discharge Plan Departure Patient Disposition: Home Clinical Impression: Abscess of epididymis Instructions: DI for Scrotal Abscess Activity Restrictions/Additional Instructions: *You have been diagnosed with scrotal abscess *What to do: At this time is very important that you follow-up with your urologist. Please continue to monitor very carefully. *Continue to take medications as directed Cefdinir 300 mg twice a day for 10 days Stop taking Augmentin [place] 1-2 tablets every 6 hours if needed for severe pain *Follow up with your primary care provider in 2-3 days or call [phone] Follow-up with your urologist Dr. Rivera, I recommend calling 1st thing in the morning stating that you have a scrotal abscess *Return to ER if you should have increasing pain swelling redness fever or any new, worsening or concerning symptoms CONTROLLED SUBSTANCE DISCHARGE (Narcotoic/benzodiazepine/Flexeril/Phenergan) 1. You have been prescribed narcotic medications, it does have acetaminophen/Tylenol/paracetamol in it, DO NOT TAKE MORE THAN 4,00mg in 24 hours of Tylenol. TRAMADOL DOES NOT CONTAIN TYLENOL 2. Please understand that we cannot provide further refills of narcotics, benzodiazepines or controlled substances through the ED and her pain management will need to be through your provider. 3. While on these medications you cannot drive or operate heavy machinery. 4. You cannot sign legal documents or perform any duties such as this. 5. As long as you're taking opiate pain medications he should also be taking a stool softener such as Colace, Dulcolax, MiraLAX or prune juice, to help avoid constipation. Prescriptions: New hydrocodone-acetaminophen 5-325 mg tablet 1 tab PO Q6H PRN (Reason: pain) Qty: 14 0RF cefdinir 300 mg capsule 300 mg PO Q12H Qty: 20 0RF No Action losartan 50 MG tablet 50 mg PO DAILY Qty: 0 Patient Comments: no longer taking and doesnt remember when he last took this med magnesium oxide 400 MG tablet 400 mg PO DAILY Qty: 0 Calcium 1 tab PO BID Vitamin C 1 tab PO DAILY Vitamin D3 1 cap PO DAILY bicalutamide 50 mg Tablet 50 mg PO Q OTHER DAY rosuvastatin 40 mg Tablet 40 mg PO DAILY metoprolol tartrate 25 mg Tablet 25 mg PO BID hydrocodone-acetaminophen 5-325 mg Tablet 1 tab PO Q4H PRN (Reason: Pain (Scale Score 4-6)) levothyroxine 25 mcg Tablet 25 mcg PO DAILY docusate sodium [Colace] 100 mg capsule 100 mg PO BID Qty: 30 0RF oxycodone 5 mg tablet 5 mg PO Q6H PRN (Reason: pain) Qty: 30 0RF acetaminophen [Tylenol] 325 mg capsule 650 mg PO QID PRN (Reason: pain) Qty: 60 0RF Eliquis 5 mg tablet 5 mg PO BID Qty: 30 0RF doxycycline hyclate 100 mg tablet 100 mg PO BID Qty: 20 0RF Referrals: Neo Rivera DO [Non-Staff] - Óscar Real MD [Physician] - Georges Feng MD [Primary Care Provider] - Stand Alone Forms: Patient Portal/API
[2023-11-03] MEDS: SODIUM CHLORIDE 0.9% 1,000 ML 1000 ML IV (21:52)
[2023-11-03 21:59] LABS: Add Manual Diff / Slide Review NO; Basophils Absolute Auto 100 /uL (0-100); Basophils Percent Auto 0.4 % (0-2); Eosinophils Absolute Auto 200 /uL (0-450); Hematocrit 33.5 % (41-53); Hemoglobin 11.5 g/dL (13.5-17.5); Lymphocytes Absolute Auto 1200 /uL (1100-4500); Lymphocytes Percent Auto 10.5 % (25-40); Mean Corpuscular HGB Conc 34.4 % (30-36); Mean Corpuscular Hemoglobin 30.8 PG (26-34); Mean Corpuscular Volume 89.5 fL (80-100); Monocytes Absolute Auto 900 /uL (0-900); Monocytes Percent Auto 7.9 % (3-14); Neutrophils Absolute Auto 9400 /uL (1500-7000); Neutrophils Percent Auto 79.2 % (50-75); Platelet Count 270 X10^3/uL (150-400); Red Blood Cell Count 3.74 X10^6/uL (4.5-5.9); Red Cell Distribution Width 13.5 % (11.6-14.8); White Blood Cell Count 11.9 X10^3/uL (4.5-11.0)
[2023-11-03 22:05] VITALS: BP 164/75; PULSE 64; RESP 21; O2SAT 100
[2023-11-03 22:12] LABS: INR 1.1 (0.9-1.3); Prothrombin Time 12.7 SECONDS (9.4-12.5)
[2023-11-03 22:15] LABS: PTT Partial Thromboplastin Tim 36 SECONDS (25.1-36.5)
[2023-11-03 22:17] LABS: Alanine Aminotransferase 17 IU/L (<50); Albumin 3.6 g/dL (3.5-5.0); Albumin Globulin Ratio 1.2 (1.0-2.8); Alkaline Phosphatase 70 U/L (38-126); Aspartate Aminotransferase 20 IU/L (17-59); BUN Creatinine Ratio 24.6 (6-22); Bilirubin Total 0.5 mg/dL (0.2-1.3); Blood Urea Nitrogen 17 mg/dL (9-20); Calcium 8.6 mg/dL (8.4-10.2); Carbon Dioxide 28 mmol/L (22-32); Chloride 104 mmol/L (98-107); Estimated Glomerular Filt Rate > 60 mL/min (>60); Globulin 2.9 g/dL (1.7-4.1); Glucose 97 mg/dL (80-110); HEMOLYSIS < 15 (0-50); Lipase 49 U/L (23-300); Potassium 4.3 mmol/L (3.4-5.1); Sodium 134 mmol/L (137-145); Total Protein 6.5 g/dL (6.3-8.2)
[2023-11-03] MEDS: MORPHINE 2 MG/ML INJ IV (22:17)
[2023-11-03] MEDS: ONDANSETRON 4 MG/2 ML INJ IV (22:17)
[2023-11-03 22:34] LABS: Procalcitonin 0.05 ng/mL (<0.5)
[2023-11-03 22:59] VITALS: BP 150/69; PULSE 64; RESP 16; O2SAT 97
[2023-11-03] MEDS: CEFEPIME 1 GM in SODIUM CHLORIDE 0.9% 100 ML IV (23:55)
[2023-11-04] MEDS: MORPHINE 2 MG/ML INJ IV (00:39)
[2023-11-04 00:56] VITALS: BP 138/62; PULSE 63; RESP 12; O2SAT 96
[2023-11-04] MEDS: HYDROCODONE/ACET 5/325 PREPACK 1 BOTTLE MISC (00:59)
== END 2023-11-04 01:12 | disposition home or self-care (01) ==
PROVIDERS: Emergency Provider Emergency Medicine; Family Provider Physician Assistant Surgical; PCP Family Medicine
DX: N45.4 Abscess of epididymis or testis (principal); R03.0 Elevated blood-pressure reading, without diagnosis of hypertension; Z86.79 Personal history of other diseases of the circulatory system
CPT/HCPCS: 36415; 71045; 76870; 80053; 81003; 83605; 83690; 84145; 85025; 85610; 85730; 87040; 93005; 93010; 93975; 96361; 96365; 96375; 96376; 99284; J0692; J2270; J2405

== ENCOUNTER → 2024-03-08 11:10 | Outpatient (CLI) | payer MEDICARE, OTHER, SELFPAY ==
[2020-02-11 14:00] VITALS: BMI 27.3
[2024-03-08 14:23] LABS: NT-proBNP (BNP-Adult 18+) 388 pg/mL (<450)
== END ==
LOC: LAB 11:13
PROVIDERS: Family Provider Physician Assistant Surgical; PCP Family Medicine; Referring Provider Family Medicine; Visit Provider Family Medicine
DX: I25.9 Chronic ischemic heart disease, unspecified (principal); I48.0 Paroxysmal atrial fibrillation; R79.89 Other specified abnormal findings of blood chemistry; E78.5 Hyperlipidemia, unspecified; I10 Essential (primary) hypertension
CPT/HCPCS: 36415; 83880

== ENCOUNTER → 2024-04-06 08:21 | Outpatient (CLI) | payer MEDICARE, OTHER, SELFPAY ==
[2020-02-11 14:00] VITALS: BMI 27.3
--- NOTE | 2024-04-06 | DI.MRI.S_ITS ---
PROCEDURE: MR LUMBAR SPINE WO CON INDICATIONS: SPINAL STENOSIS, LUMBAR REGION TECHNIQUE: Noncontrast sagittal T1 spin echo and T2 fast echo, sagittal STIR, and T2 fast spin echo through the lumbar spine. In cases with scoliosis, additional coronal T2 fast spin echo may be performed. COMPARISON: [facility], MR, MR LUMBAR SPINE WO CON, 07/26/2023, 16:18. FINDINGS: Image quality: Excellent. Alignment and Curvature: Similar grade 1 anterolisthesis of L3 on L4. Bone Marrow: Marrow is of normal overall signal. No acute vertebral body compression fractures. Multiple Schmorl nodes Spinal Cord: Conus medullaris terminates at the L1 level. Visualized cord demonstrates normal signal and size. Lipid rich osseous hemangioma at L1. Paraspinous Soft Tissues: No significant interval change of a 2.8 centimeter cyst within the left kidney. Intervertebral discs: Multilevel disc desiccation and height loss, worse at L3-L4. T12-L1: Normal appearance. L1-L2: Normal appearance. L2-L3: Shallow dorsal disc bulge mildly effaces the ventral thecal sac. No foraminal stenosis. Bilateral facet arthropathy. L3-L4: There is moderate spinal canal stenosis, progressed from prior exam secondary to dorsal disc bulge , ligamentum flavum hypertrophy and anterolisthesis. Mild narrowing of the right foramen. Similar mild to moderate left foraminal stenosis. Bilateral facet arthropathy. L4-L5: Dorsal disc bulge with superimposed similar small central disc extrusion. Similar mild to moderate spinal canal stenosis. Similar small facet joint cyst off the right facet impinging on the right L5 nerve root in the right lateral recess. Moderate left foraminal stenosis, slightly progressed. Bilateral facet arthropathy and ligamentum flavum hypertrophy. L5-S1: No spinal canal stenosis. Mild bilateral foraminal narrowing. Bilateral facet arthropathy and ligamentum flavum hypertrophy. IMPRESSION: 1. When compared to prior MRI of the lumbar spine on 07/26/2023, there is similar to slight progression of multilevel degenerative disc disease of the lumbar spine as described above. The worst level is at L4-L5 which demonstrates slight progression of left foraminal stenosis. There is similar mild to moderate spinal canal stenosis at this level and there is a similar small facet joint of the right facet that impinges on the right L5 nerve root. 2. Similar grade 1 anterolisthesis of L3 on L4. Dictated by: Wojciech Pereira M.D. on 04/06/2024 at 14:13 Approved by: Wojciech Pereira M.D. on 04/06/2024 at 14:40
== END ==
PROVIDERS: Family Provider Physician Assistant Surgical; PCP Family Medicine; Referring Provider Physical Medicine & Rehabilitation; Visit Provider Physical Medicine & Rehabilitation
DX: M48.062 Spinal stenosis, lumbar region with neurogenic claudication (principal); M48.07 Spinal stenosis, lumbosacral region; M51.36 Other intervertebral disc degeneration, lumbar region; M47.816 Spondylosis without myelopathy or radiculopathy, lumbar region; M47.817 Spondylosis without myelopathy or radiculopathy, lumbosacral region; M43.16 Spondylolisthesis, lumbar region
CPT/HCPCS: 72148

== ENCOUNTER → 2024-12-10 09:42 | Outpatient (CLI) | payer MEDICARE, OTHER, SELFPAY ==
[2020-02-11 14:00] VITALS: BMI 27.3
--- NOTE | 2024-12-10 10:06 | EKG_ITS ---
[address] [address] Test Date: 2024-12-10 Pat Name: Neo Aragon Department: [facility] Room: Gender: Male Resolution Analyst: LINK : 1950 Requested By: Order Number: [id number] Reading MD: Ryan Sharpe MD Measurements Intervals [place] Rate: 58 P: 34 RI: 208 QRS: -8 QRSD: 86 T: 63 QT: 414 QTc: 406 Interpretive Statements Sinus bradycardia Electronically Signed On 12-10-2024 10:46:10 PDT by Ryan Sharpe MD
[2024-12-10 10:54] LABS: Add Manual Diff / Slide Review NO; Basophils Absolute Auto 0 /uL (0-100); Basophils Percent Auto 0.7 % (0-2); Eosinophils Absolute Auto 200 /uL (0-450); Eosinophils Percent Auto 2.2 % (2-4); Hemoglobin 12.3 g/dL (13.5-17.5); Lymphocytes Absolute Auto 1400 /uL (1100-4500); Lymphocytes Percent Auto 20.4 % (25-40); Mean Corpuscular Hemoglobin 30.3 PG (26-34); Monocytes Absolute Auto 700 /uL (0-900); Monocytes Percent Auto 9.6 % (3-14); Neutrophils Absolute Auto 4600 /uL (1500-7000); Neutrophils Percent Auto 67.1 % (50-75); Platelet Count 216 X10^3/uL (150-400); Red Blood Cell Count 4.05 X10^6/uL (4.5-5.9); Red Cell Distribution Width 14.3 % (11.6-14.8); White Blood Cell Count 6.9 X10^3/uL (4.5-11.0)
[2024-12-10 11:05] LABS: BUN Creatinine Ratio 28.2 (6-22); Blood Urea Nitrogen 24 mg/dL (9-20); Calcium 9.2 mg/dL (8.4-10.2); Carbon Dioxide 30 mmol/L (22-32); Chloride 105 mmol/L (98-107); Estimated Glomerular Filt Rate > 60 mL/min (>60); Glucose 80 mg/dL (80-110); HEMOLYSIS < 15 (0-50); Potassium 5.5 mmol/L (3.4-5.1); Sodium 138 mmol/L (137-145)
== END ==
PROVIDERS: Family Provider Physician Assistant Surgical; PCP Family Medicine; Referring Provider Orthopaedic Surgery Foot and Ankle Surgery; Visit Provider Orthopaedic Surgery Foot and Ankle Surgery
DX: Z01.818 Encounter for other preprocedural examination (principal); Z01.812 Encounter for preprocedural laboratory examination
CPT/HCPCS: 36415; 80048; 85025; 93005

== ENCOUNTER → 2025-02-07 16:18 | Outpatient (CLI) | payer MEDICARE, OTHER, SELFPAY ==
[2020-02-11 14:00] VITALS: BMI 27.3
--- NOTE | 2025-02-07 16:20 | DI.US.S_ITS ---
PROCEDURE: US PERIPH VENOUS LOW EXTREM LT INDICATIONS: DVT r/o TECHNIQUE: Real-time imaging, as well as color and pulse Doppler interrogation, were performed of the lower extremity deep veins from the inguinal ligament to the popliteal fossa, with documentation of the visualized calf veins. COMPARISON: None. FINDINGS: The common femoral, femoral, popliteal, and the visualized calf veins are normally compressible, and free of intraluminal thrombus. Color and pulse Doppler demonstrate normal phasic intraluminal flow. There is normal augmentation response to distal compression maneuver. IMPRESSION: No findings of lower extremity deep venous thrombosis. Approved by: Babar Chopra M.D. on 02/07/2025 at 17:27
== END ==
PROVIDERS: Family Provider Physician Assistant Surgical; PCP Family Medicine; Referring Provider Orthopaedic Surgery Foot and Ankle Surgery; Visit Provider Orthopaedic Surgery Foot and Ankle Surgery
DX: M79.89 Other specified soft tissue disorders (principal)
CPT/HCPCS: 93971